=== PATIENT | male | born 1980 | race Caucasian/White ===

== ENCOUNTER → 2020-03-23 22:05 | Outpatient (CLI) | payer OTHER, SELFPAY ==
[2020-03-23 19:11] VITALS: BMI 44.9
[2020-03-23 22:12] LABS: Absolute Lymphocyte Count 2.19 X10^3/uL (0.83-4.51); Absolute Neutrophil Count 7.8 X10^3/uL (2.0-7.7); Basophil# 0.07 X10^3/uL; Basophil% 0.6 % (0-1); Eosinophil# 0.19 X10^3/uL; Eosinophils% 1.7 % (0-5); Hematocrit 30.8 % (40-54); Hemoglobin 8.5 g/dL (13.0-16.5); Lymphocyte # 2.19 X10^3/ul (4.0); Mean Corp Hgb Conc 27.6 g/dL (32-36); Mean Corpuscular Hgb 19.5 pg (27.0-32.0); Mean Corpuscular Volume 70.8 fL (80-94); Mean Platelet Vol. 9.6 fl (6.2-12.0); Monocyte# 0.71 X10^3/uL; Monocyte% 6.5 % (0-10); NRBC Flagged by Analyzer 0 % (0-5); Neutrophil # 7.75 X10^3/uL (2.7-7.7); Neutrophil % 70.8 % (47-70); Platelet Count 532 K/mm3 (150-450); RBC Distribution Width CV 17.4 % (11.6-14.6); RBC Distribution Width SD 44.2 fl (35.1-43.9); Red Blood Count 4.35 M/mm3 (4.6-6.2)
[2020-03-23 22:32] LABS: ALB/GLOB Ratio 0.9 RATIO (0.9-2.4); AST(SGOT) 9 U/L (15-37); Alanine Aminotransfer ALT/SGPT 26 U/L (16-61); Albumin, Serum 3.5 g/dL (3.2-5.0); Alkaline Phosphatase 95 U/L (45-117); Anion Gap 4 (5-15); BUN 19 mg/dL (7-18); BUN/Creat Ratio 18.8 RATIO (10-20); Calcium,Total 8.9 mg/dL (8.5-10.1); Chloride 110 mmol/L (98-107); Cholesterol 183 mg/dL (200); Creatinine, Serum 1.01 mg/dL (0.70-1.30); EST Glomerular Filtration Rate 87 mL/min (>60); Est Glom Filt Rate - Afr Amer 106 mL/min (>60); Globulin 3.7 g/dL (2.2-4.2); Glucose 88 mg/dL (74-106); High Density Lipoprotein 25 mg/dL; Potassium 4.2 mmol/L (3.5-5.1); Protein, Total 7.2 g/dL (6.4-8.2); Sodium Level 141 mmol/L (136-145); Triglycerides 215 mg/dL; Very Low Density Lipoprotein 43 mg/dL (5-40)
== END ==
PROVIDERS: Referring Provider Nurse Practitioner; Visit Provider Nurse Practitioner
DX: K59.00 Constipation, unspecified (principal); K57.92 Diverticulitis of intestine, part unspecified, without perforation or abscess without bleeding
CPT/HCPCS: 80053; 80061; 85025

== ENCOUNTER → 2020-10-25 23:00 | Outpatient (CLI) | payer OTHER, SELFPAY ==
[2020-10-25 17:42] VITALS: BMI 41.6
== END ==
PROVIDERS: Visit Provider Nurse Practitioner
DX: T81.89XA Other complications of procedures, not elsewhere classified, initial encounter (principal); T80.219A Unspecified infection due to central venous catheter, initial encounter
CPT/HCPCS: 87070; 87075; 87077; 87186; 87205

== ENCOUNTER 2021-04-16 10:29 | Day surgery (SDC) | payer OTHER, SELFPAY ==
[2021-04-16] VITALS (7 sets, daily range): BP systolic 107–129; BP diastolic 70–82; PULSE 75–85; RESP 16–18; TEMP 36.4–36.8; O2SAT 92–99; BMI 44.2
--- NOTE | 2021-04-16 11:12 | PCM.HP.BLA ---
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 Is patient in pain?: No Allergies amoxapine Allergy (Severe, Verified 04/11/21 14:17) RASH amoxicillin Allergy (Severe, Verified 04/11/21 14:17) HEAT RASH Penicillins Allergy (Verified 04/11/21 14:17) Rash Medications ondansetron HCl 8 mg PO Q8H PRN PRN 06/26/20 [History Confirmed 04/11/21] prochlorperazine maleate 10 mg PO Q8H 06/26/20 [History Confirmed 04/11/21] aspirin 81 mg tablet,delayed release 81 mg PO BID tab 09/20/20 [History Confirmed 04/11/21] mupirocin 2 % topical ointment 1 applic TOPICAL BID #15 g 09/20/20 [Rx Confirmed 04/11/21] ascorbic acid (vitamin C) 500 mg capsule mg PO DAILY cap 12/18/20 [History Confirmed 04/11/21] multivitamin 1 tab PO DAILY 12/18/20 [History Confirmed 04/11/21] omega-3 acid ethyl esters 1 gram capsule 1 cap PO DAILY 12/18/20 [History Confirmed 04/11/21] PFSH Medical History Colon cancer DVT (deep venous thrombosis) Sleep apnea Surgical wound, non healing Surgical History [place] teeth extracted Family History Father CVA (cerebral vascular accident) Other Heart disease Liver cancer Stomach cancer Social History Smoking Status: Never smoker second hand exposure: No alcohol intake: current substance use type: does not use HPI HPI HPI: JESENIA LARSEN, is a 41 M who presents to the office today for port placement. Patient has rectal cancer and requires chemotherapy. Patient reports he has had 2 ports on the right side which of both become infected and he has had a PICC line in the left which developed a DVT. ROS General General: Yes weight change, appetite and fatigue; No colon cancer, breast cancer or weakness HEENT HEENT: No difficulty swallowing, eye injury, eye surgery, swollen glands or hoarseness Endo Endocrine: No thyroid disease, diabetes mellitus, thyroid cancer, Hair loss, heat intolerance or cold intolerance Skin Skin: No rash or changing moles Breast Breast: No left breast lump, right breast lump, nipple discharge, breast pain, abnormal mammogram, abnormal US or breast enlargement Musc Musculoskeletal: No back problems, arthritis, rheumatoid arthritis, gout or joint pain Cardio Cardiovascular: No murmur, pacemaker, heart disease, atrial fibrillation, high blood pressure, heart attack, heart stent, palpitations, shortness of breat with exertion or chest pain Psych Psychiatric: No depression, anxiety or hearing voices Resp Respiratory: No shortness of breath, Yes sleep apnea, No cough, No COPD, No asthma, No emphysema and No wheezing Gastro Gastrointestinal: Yes abdominal pain, No nausea or vomiting, No diarrhea, Yes constipation, No blood in stool, No acid reflux, Yes hemorrhoids, No ulcers, No gallbladder problem and No black,tarry stools Tariq Hematologic: No blood thinners, No blood disorders, No bleeding, No anemia and No blood clots Neuro Neurologic: No system reviewed and no additional complaints, except as documented, No as per HPI, No abnormal gait, No abnormal hearing, No abnormal movements, No abnormal speech, No behavioral changes, No burning sensations, No confusion, No convulsions, No disequilibrium, No dizziness, No localized weakness, No frequent falls, No headache(s), No lack of coordination, No loss of vision, No memory loss, Yes numbness, No other visual disturbances, No radicular pain, No restless legs, No sensory deficit, No syncope, Yes tingling, No tremor(s), No weakness and No other Exam Const General: cooperative Orientation: alert and oriented x3 HENMT Head: normal to inspection Neck Neck: normal visual inspection and full ROM Chest Chest palpation & inspection: normal inspection of the chest Resp Effort & Inspection: normal respiratory effort Auscultation: clear to auscultation bilaterally Cardio Rate: regular rate Rhythm: regular rhythm GI Inspection: non-distended Palpation: soft and nontender Skin General: no rashes or lesions noted Neuro General: patient alert and patient oriented x3 Extrem General: full ROM Psych Appearance: grossly normal Mental Status: mental status grossly normal Assessment and Plan Assessment and Plan (1) Rectal cancer metastasized to lung: Status: Chronic Comment: Bilateral lung nodules not causing symptoms. CEA on 03/14/2021 was 8. (2) Encounter for insertion of venous access port: Status: Acute Plan - Dr. Simon Dela Cruz MD: The patient requires port for chemotherapy. Patient has had 2 ports on the right side and believes that dissolvable sutures cause infections. I discussed left chest port placement with the patient in detail. I discussed using permanent nylon sutures for the incision and PDS monofilament suture for the anchoring. I discussed the risks of the procedure including bleeding and infection and pneumothorax. I also discussed the possibility of having converted to a right sided chest port if I am unable to access the left. Simon Dela Cruz MD Pager: [facility] [address] [place] [address], [address] [place] [address] Office: I have re-examined the patient. There are no clinical changes since date of exam.
[2021-04-16] MEDS: Lidocaine 1% /Epi 1:100 (20ml) 20 ML Vial (12:00)
--- NOTE | 2021-04-16 12:16 | OP.PCM_ITS ---
Problems Associated Problem List Diagnoses (1) Encounter for insertion of venous access port: (2) Rectal cancer metastasized to lung: Report of Operation Date of Procedure: 04/16/21 Pre-Operative Diagnosis: Metastatic rectal cancer need for vascular access Post-Operative Diagnosis: Same Surgery/Procedure Performed:: Ultrasound and fluoroscopy guided left chest port placement utilizing left IJ Description of Procedure: After obtaining informed consent patient was brought back to the operating room MAC anesthesia was induced and the left chest and neck were prepped in normal sterile fashion. Ultrasound was used to evaluate both IJs and the left IJ was selected. Next, using a needle, the left IJ was accessed and a guidewire was passed on into the superior vena cava under fluo roscopy guidance. A small incision was made over the puncture site and the dilator introducer was placed over the guidewire. Next this was capped and the pocket was made for the port. 1% lidocaine with epinephrine was injected in the proposed port site. An incision was made with scalpel. Electrocautery was used to make a pocket under the skin and subcutaneous tissue. Hemostasis was obtained. Next, the catheter was tunneled up to the neck incision site and placed through the introducer. The peel-away introducer was removed and the position of the catheter was confirmed on fluoroscopy. Next, the catheter was trimmed and attached to the port with the locking device. Interrupted 2-0 Vicryl sutures were used to anchor the port to the chest wall and then the port was placed inside the pocket. The pocket was then flushed with saline and the port irrigated with saline. There was good blood return and the port flushed easily. Next, heparin was injected into the port. The skin was closed with subcutaneous interrupted 3-0 Vicryl sutures. A single 3-0 Vicryl sutures placed under the skin at the neck incision site. Steri-Strips were placed as well as op sites. Patient tolerated procedure well, was taken to PACU in stable condition. Chest x-ray will be obtained. Grafts/Implants Used: 8 Citizen Of [place] PowerPort Admit VTE Documentation VTE Mechan Device Prophylaxis: SCD's
--- NOTE | 2021-04-16 12:17 | RAD_ITS ---
STUDY: X-RAY CHEST REASON FOR EXAM: Male, 41 years old. Line placement -- in pacu TECHNIQUE: Single AP portable view of the chest. COMPARISON: None. FINDINGS: A left-sided portacatheter is seen with the tip at the junction of the superior vena cava and right atrium. Bilateral pulmonary nodules. The largest nodule measures 1.3 cm. This nodules in the right upper lobe. There is no demonstrated pleural abnormality. Normal size heart. Normal mediastinum and jarvis. Normal visualized pulmonary arteries. Normal visualized aortic arch and descending thoracic aorta. Normal visualized thoracic spine. Normal visualized ribs, clavicles, and shoulders. There is no demonstrated abnormality of the visualized soft tissue structures of the upper abdomen. RAD/CXR for Line Placement IMPRESSION: Bilateral pulmonary nodules. The tip of the left Port-A-Cath is at the junction of the superior vena cava and right atrium. Electronically Signed: Lm Robb MD at 13:04 EST , Service support ,
--- NOTE | 2021-04-16 12:17 | EX.PCM.DISCH ---
Discharge Instructions Procedure Port-A-Cath Diet Discharge Diet: Light diet - advance as tolerated (Pain medication may cause nausea. You should typically eat light foods as you take your pain medication.) Activity Discharge Activity: Return to Normal Activity and May Shower (with your bandage in place in 1-2 days after surgery. DO NOT SHOWER WHEN YOUR PORT IS ACCESSED.) Dressing / Incision Call your doctor if your incision/area has: Continuous Slow Oozing, Sudden Increased Bleeding, Increased Pain/ Swelling, Increased Redness and Foul Smelling Discharge Call your doctor if you observe: Fever of 101 or Higher Remove Dressing in: 3 days Cleanse incision/area with: Soap & Water Follow Up Care Please Follow Up With: Simon Dela Cruz MD When: Call to make 7-10 day appt for suture removal [phone] Test Results: Test results from this visit will be discussed in further detail at your follow-up appointment, if applicable. Discharge Plan Admission Attending Provider: Simon Dela Cruz Primary Care Provider: Breana Arroyo Discharge Orders/Prescriptions Prescriptions: No Action ascorbic acid (vitamin C) 500 mg capsule 500 mg PO DAILY RF: 0 multivitamin Tablet 1 tab PO DAILY RF: 0 omega-3 acid ethyl esters 1 gram capsule 1 cap PO DAILY RF: 0 aspirin 81 mg tablet,delayed release (DR/EC) 81 mg PO BID RF: 0 mupirocin 2 % ointment 1 applic topical BID PRN PRN (Reason: infection) RF: 0 Referrals / Follow Up: Breana Arroyo [Primary Care Provider] - Disposition Disposition (needs filled in before D/C Order can be placed): Home, Self Care
[2021-04-16] MEDS: Lactated Ringers 1,000 ML 15 ML IV (12:46)
== END 2021-04-16 14:20 | disposition home or self-care (01) ==
LOC: SDC 10:36 → AC 10:37
PROVIDERS: Referring Provider Surgery; Visit Provider Surgery
PROC: (CPT 36561; principal; 2021-04-16 11:55)
DX: Z45.2 Encounter for adjustment and management of vascular access device (principal); C20 Malignant neoplasm of rectum; C78.00 Secondary malignant neoplasm of unspecified lung; Z79.82 Long term (current) use of aspirin; Z79.899 Other long term (current) drug therapy
CPT/HCPCS: 00532; 36561; 71045; 77001; J7120; C1788

== ENCOUNTER → 2021-09-14 | Outpatient (CLI) | payer OTHER, SELFPAY ==
--- NOTE | 2021-09-14 13:52 | CT_ITS ---
STUDY: CT CHEST, ABDOMEN T PELVIS WITH CONTRAST REASON FOR EXAM: Male, 41 years old. STAGING for colon cancer. RADIATION DOSAGE (If Supplied By Facility): CTDIvol = ( 25.78 ) mGy, DLP = ( 4083.24 ) mGycm TECHNIQUE: Transaxial imaging was performed following intravenous administration of Oral and amp; IV Readi-CAT and amp; 100mL Isovue-300. Individualized dose optimization techniques were used for this CT. COMPARISON: No relevant priors. FINDINGS: CHEST There are multiple bilateral pulmonary nodules involving both lungs in the upper and lower lobes. The largest nodule is in the superior segment of the right lower lobe and measures 1.8 cm x 1.6 cm. There is no demonstrated pleural abnormality. Minimal thickening of the anterior pericardium. There are multiple small lymph nodes within the mediastinum, which are normal in size and morphology most compatible with reactive lymph hyperplasia. Normal hilar regions. Normal unenhanced pulmonary arteries. Normal aorta arch and descending thoracic aorta. There are degenerative changes of the thoracic spine. Hypodense nodules are seen in the liver. ABDOMEN Scattered hypoechoic solid nodules in both lobes of the liver. The largest heterogeneous appearing nodule is in the inferior aspect of the right lobe of the liver and measures 5.27 x 5.2 cm. This is in keeping with metastatic disease. Normal gallbladder and extrahepatic biliary system. Normal spleen. Normal pancreas. Normal bilateral adrenal glands. Normal right kidney. Left parapelvic renal cysts. Normal visualized stomach. Normal small intestine. There is diffuse circumferential thickening of the rectum with narrowing of the lumen. Increased markings are seen in the surrounding perirectal fat. The appendix is visualized and appears normal. Normal abdominal aorta. Normal inferior vena cava. Normal retroperitoneum. Normal abdominal wall. There are mild degenerative changes of the visualized lumbar spine. PELVIS Normal urinary bladder. CT/CT Chest, Abd, Pel w/Contrast IMPRESSION: Multiple pulmonary nodules as described. Findings suggestive of a hepatic metastasis. Diffuse circumferential wall thickening of the rectum with narrowing of the lumen and increased markings in the surrounding peritoneal fat. Left parapelvic renal cysts. Electronically Signed: Lm Robb MD at 15:03 EDT ,
== END | disposition home or self-care (01) ==
PROVIDERS: Visit Provider Internal Medicine Medical Oncology
DX: C20 Malignant neoplasm of rectum (principal); C78.00 Secondary malignant neoplasm of unspecified lung; C78.7 Secondary malignant neoplasm of liver and intrahepatic bile duct
CPT/HCPCS: 71260; 74177; Q9967; A4216

== ENCOUNTER → 2021-09-18 | Outpatient (CLI) | payer OTHER, SELFPAY ==
[2021-09-18 16:40] LABS: Absolute Lymphocyte Count 0.69 X10^3/uL (0.83-4.51); Absolute Neutrophil Count 6.2 X10^3/uL (2.0-7.7); Basophil# 0.04 X10^3/uL; Basophil% 0.5 % (0-1); Eosinophil# 0.13 X10^3/uL; Eosinophils% 1.7 % (0-5); Hemoglobin 10.1 g/dL (13.0-16.5); Lymphocyte # 0.69 X10^3/ul (0.83-4.51); Lymphocyte % 9.2 % (19-41); Mean Corp Hgb Conc 30.6 g/dL (32-36); Mean Corpuscular Hgb 26.2 pg (27.0-32.0); Mean Corpuscular Volume 85.5 fL (80-94); Monocyte# 0.45 X10^3/uL; NRBC Flagged by Analyzer 0 % (0-5); Neutrophil # 6.16 X10^3/uL (2.7-7.7); Neutrophil % 82.3 % (47-70); Platelet Count 339 K/mm3 (150-450); RBC Distribution Width CV 15.1 % (11.6-14.6); RBC Distribution Width SD 47.2 fl (35.1-43.9); Red Blood Count 3.86 M/mm3 (4.6-6.2); White Blood Count 7.5 K/mm3 (4.4-11.0)
[2021-09-18 17:36] LABS: ALB/GLOB Ratio 1.1 RATIO (0.9-2.4); AST(SGOT) 16 U/L (15-37); Alanine Aminotransfer ALT/SGPT 28 U/L (16-61); Albumin, Serum 3.4 g/dL (3.2-5.0); Alkaline Phosphatase 79 U/L (45-117); Anion Gap 7 (5-15); BUN 18 mg/dL (7-18); BUN/Creat Ratio 17.3 RATIO (10-20); Calcium,Total 9.1 mg/dL (8.5-10.1); Chloride 108 mmol/L (98-107); Creatinine, Serum 1.04 mg/dL (0.70-1.30); EST Glomerular Filtration Rate 84 mL/min (>60); Est Glom Filt Rate - Afr Amer 101 mL/min (>60); Globulin 3.2 g/dL (2.2-4.2); Glucose 129 mg/dL (74-106); LDH 208 U/L (87-241); Potassium 3.9 mmol/L (3.5-5.1); Protein, Total 6.6 g/dL (6.4-8.2); Sodium Level 142 mmol/L (136-145)
[2021-09-19 00:23] LABS: Xtra Tube EP Lab EXTRA TUBE
[2021-09-20 10:37] LABS: Carcinoembryonic Antigen 86.4 ng/mL (0.0-4.7)
== END | disposition home or self-care (01) ==
PROVIDERS: Referring Provider Internal Medicine Medical Oncology; Visit Provider Internal Medicine Medical Oncology
DX: C20 Malignant neoplasm of rectum (principal); C78.7 Secondary malignant neoplasm of liver and intrahepatic bile duct
CPT/HCPCS: 36415; 80053; 82378; 83615; 85025

== ENCOUNTER → 2021-11-02 | Outpatient (CLI) | payer OTHER, SELFPAY ==
[2021-11-02 23:14] LABS: Thyroid Stim Hormone (TSH) 3.99 uIU/mL (0.358-3.74)
[2021-11-02 23:16] LABS: Absolute Lymphocyte Count 0.82 X10^3/uL (0.83-4.51); Absolute Neutrophil Count 6.9 X10^3/uL (2.0-7.7); Basophil# 0.05 X10^3/uL; Basophil% 0.6 % (0-1); Eosinophil# 0.06 X10^3/uL; Eosinophils% 0.7 % (0-5); Hematocrit 34.9 % (40-54); Hemoglobin 10.5 g/dL (13.0-16.5); Lymphocyte # 0.82 X10^3/ul (0.83-4.51); Lymphocyte % 9.5 % (19-41); Mean Corp Hgb Conc 30.1 g/dL (32-36); Mean Corpuscular Hgb 23.3 pg (27.0-32.0); Mean Corpuscular Volume 77.4 fL (80-94); Mean Platelet Vol. 9.4 fl (6.2-12.0); Monocyte# 0.72 X10^3/uL; Monocyte% 8.4 % (0-10); NRBC Flagged by Analyzer 0 % (0-5); Neutrophil # 6.94 X10^3/uL (2.7-7.7); Neutrophil % 80.5 % (47-70); Platelet Count 589 K/mm3 (150-450); RBC Distribution Width CV 15.9 % (11.6-14.6); RBC Distribution Width SD 44.1 fl (35.1-43.9); Red Blood Count 4.51 M/mm3 (4.6-6.2); White Blood Count 8.6 K/mm3 (4.4-11.0)
[2021-11-02 23:35] LABS: D-Dimer Quantitative (DVT/PE) 11.58 FEU/ug/m (0.27-0.49)
== END | disposition home or self-care (01) ==
PROVIDERS: Visit Provider Nurse Practitioner
DX: R05.9 Cough, unspecified (principal); A09 Infectious gastroenteritis and colitis, unspecified
CPT/HCPCS: 84443; 85025; 85379

== ENCOUNTER 2021-11-11 20:28 | Inpatient (IN) | payer OTHER, SELFPAY ==
[2021-11-11 20:29] VITALS: BP 157/99; PULSE 116; RESP 16; TEMP 35.9; O2SAT 95; BMI 43.5
--- NOTE | 2021-11-11 21:06 | EKG12_ITS ---
Test Reason : COUGH Blood Pressure : / mmHG Vent. Rate : 107 BPM Atrial Rate : 107 BPM P-R Int : 136 ms QRS Dur : 092 ms QT Int : 338 ms P-R-T Axes : 044 007 013 degrees QTc Int : 451 ms Sinus tachycardia Otherwise normal ECG Confirmed by ANGI LARA, AMOL ([id number]), telegraph editor NAYANA VILLALPANDO ([id number]) on 11/13/2021 9:51:27 AM Referred By: OZ Confirmed By:AMOL WHITLEY MD
--- NOTE | 2021-11-11 21:10 | EX.ED.DYSGE1 ---
HPI History of Present Illness Chief Complaint: Cough Informant: patient and spouse/S.O. Narrative Narrative: Patient presents with cough for the past 2 weeks as well as abdominal pain and distention for the past 3 days. Patient had seen his primary care physician and lab work was recently performed. His thyroid was found to be low and he was started on levothyroxine. His doctor felt this might be why he was experiencing the cough. He does report having nausea and vomiting when he takes the levothyroxine. He also notes increased abdominal distention with upper abdominal pain over the past 3 days. He has a history of rectal/colon cancer with mets to the liver. He is scheduled to undergo a liver biopsy this coming week. He denies fever or chills. [facility] Medical History Colon cancer Diarrhea due to drug DVT (deep venous thrombosis) Encounter for education Liver cancer Neuropathy Non-smoker Sleep apnea Surgical wound, non healing Wears glasses Home Medications aspirin 81 mg tablet,delayed release 81 mg PO BID 09/20/20 [History Last Taken Unknown] ascorbic acid (vitamin C) 500 mg capsule 500 mg PO DAILY 12/18/20 [History Last Taken Unknown] multivitamin 1 tab PO DAILY 12/18/20 [History Last Taken Unknown] omega-3 acid ethyl esters 1 gram capsule 1 cap PO DAILY 12/18/20 [History Last Taken Unknown] mupirocin 2 % topical ointment 1 applic topical BID PRN PRN infection 04/12/21 [History Last Taken Unknown] cefdinir 300 mg capsule 300 mg PO BID #20 caps 11/02/21 [Rx Last Taken Unknown] metronidazole 250 mg tablet 250 mg PO TID 10 days #30 tabs 11/02/21 [Rx Last Taken Unknown] prednisone 20 mg tablet 40 mg PO DAILY #20 tabs 11/02/21 [Rx Last Taken Unknown] levothyroxine 50 mcg tablet 50 mcg PO DAILY #30 tabs 11/06/21 [Rx Last Taken Unknown] Allergy/AdvReac Type Severity Reaction Status Date / Time amoxapine Allergy Severe RASH Verified 11/11/21 20:29 amoxicillin Allergy Severe HEAT RASH Verified 11/11/21 20:29 Penicillins Allergy Rash Verified 11/11/21 20:29 Family History Father CVA (cerebral vascular accident) Other Heart disease Liver cancer Stomach cancer Surgical History History of vascular access device [place] teeth extracted Social History Smoking Status: Never smoker second hand exposure: No alcohol intake: current substance use type: does not use ROS ROS ED Constitutional Constitutional ED: Denies chills or fever(s) Eyes Eyes: Denies change in vision or discharge from eye(s) ENT ENT ED: Denies discharge from eye(s), rhinorrhea or sore throat Cardiovascular Cardiovascular: Denies chest pain or palpitations Respiratory/Chest Respiratory/Chest: Reports cough and dyspnea Gastrointestinal Gastrointestinal: Reports abdominal pain; Denies diarrhea, nausea or vomiting Genitourinary Genitourinary ED: Denies difficulty urinating or dysuria Musculoskeletal Musculoskeletal: Reports back pain; Denies extremity pain Integumentary Denies Abrasions or rash Neurologic Neurologic: Denies headache(s) or weakness Psychiatric Psychiatric: Denies anxiety or depression Allergic/Immunologic Allergic/Immunologic ED: Denies lip swelling or urticaria EXAM Physical Exam Const Vital Signs: 11/11/21 20:29 11/11/21 21:52 11/11/21 23:00 Temperature 96.6 F L Temperature Source Temporal Pulse Rate 116 H 99 100 Respiratory Rate 16 25 H 18 Blood Pressure 157/99 H 134/98 H 154/97 H Blood Pressure Mean 118 110 116 Pulse Ox 95 95 96 Oxygen Delivery Method Room Air Room Air Positive well nourished and well developed General Appearance ED: well developed HEENT Reports normocephalic and head/scalp atraumatic Eyes PERRL and EOMs intact bilaterally Neck supple Chest Wall inspection of chest normal and palpation of chest normal Resp normal respiratory effort and clear to auscultation bilaterally Cardio regular rhythm Rate: tachycardic GI GI Narrative: Abdomen distended and tense. Mild upper abdominal tenderness. No guarding or rebound. Extremity normal to inspection Neuro oriented x3 and no sensory deficits noted Sensorium / Orientation: alert Motor Exam: strength 5/5 throughout Psych mental status grossly normal Skin no rashes or lesions noted MDM MDM MDM Narrative Medical decision making narrative: EKG, lab work obtained. CTA of the chest ordered in addition to CT of the abdomen and pelvis. Patient was given Toradol for pain as he does have known metastatic disease to the liver. Lab Data Attestation: I reviewed the patient's lab results. Labs: Laboratory Results - last 24 hr 11/11/21 11/11/21 11/11/21 21:00 21:00 21:00 WBC 10.8 RBC 4.87 Hgb 11.2 L Hct 37.3 L MCV 76.6 L MCH 23.0 L MCHC 30.0 L RDW Std Deviation 45.0 H RDW Coeff of Walter 16.5 H Plt Count 682 H MPV 9.2 Immature Gran % (Auto) 0.600 Neut % (Auto) 80.9 H Lymph % (Auto) 8.3 L [place] % (Auto) 9.0 Eos % (Auto) 0.8 Baso % (Auto) 0.4 Absolute Neuts (auto) 8.7 H Absolute Lymphs (auto) 0.90 Nucleated RBC % 0 PT 14.8 INR 1.2 APTT 28.2 Sodium 138 Potassium 3.8 Chloride 105 Carbon Dioxide 23.0 Anion Gap 10 BUN 16 Creatinine 1.11 Estim Creat Clear Calc 97.10 Est GFR (MDRD) Af Amer 94 Est GFR (MDRD) Non-Af 78 BUN/Creatinine Ratio 14.4 Glucose 119 H Calcium 9.0 Total Bilirubin 0.40 Direct Bilirubin 0.15 AST 38 H ALT 39 Alkaline Phosphatase 158 H Total Protein 6.6 Albumin 2.5 L Globulin 4.1 Lipase 72 L Radiography Diagnostic Testing: Clinical Impression(s) from Imaging Studies Abdomen/Pelvis CT 11/11/21 22:45 IMPRESSION: Findings consistent with metastatic disease with multiple hepatic masses, lung nodules and peritoneal carcinomatosis with omental caking, significantly progressed compared to the prior study. Large amount of ascites. No bowel obstruction. Mild rectal wall thickening is relatively decreased compared to prior study. CT chest reported separately. Electronically Signed: Silvia Taveras MD at 23:28 EDT , Chest CTA 11/11/21 22:45 IMPRESSION: No definite evidence of pulmonary emboli. Small questionable filling defect in the left lower lobe is most likely artifactual. Multiple pulmonary masses increased size compared to prior study consistent with metastatic disease. Small bilateral pleural effusions, new. Intra-abdominal findings, please see report of CT abdomen pelvis for complete details Electronically Signed: Silvia Taveras MD at 23:46 EDT , EKG Initial EKG: Attestation: I personally reviewed and interpreted this EKG as follows: Interpretation: Sinus Tachycardia (Sinus tach at 107 with no acute ischemia.) Treatment and Re-Evaluation Narrative: On repeat evaluation patient resting comfortably. O2 sats are stable on room air at rest. CBC reveals mild anemia with a hemoglobin 11.2. Coags unremarkable. Chemistry studies normal with LFTs significant for an alk phos of 158 and an AST of 38. Lipase is normal. CTA of the chest reveals no definite evidence of a PE. There is a small questionable filling defect in the left lower lobe that they believe is likely artifactual. He does have multiple pulmonary masses that are increased in size when compared to prior study. He has now developed small bilateral pleural effusions. CT scan of the abdomen and pelvis reveals metastatic disease with multiple hepatic masses and evidence of peritoneal carcinomatosis with omental caking that has worsened since prior study. He does have a large amount of ascites. Test results discussed with patient and family at bedside. I did advise him that his scans appear to have worsened since prior study in September. While lying at rest patient is comfortable, however he states with any exertion he gets extremely dyspneic. In light of this I will speak with hospitalist regarding admission. I believe he will likely need a paracentesis. He does understand that with the holiday tomorrow this would not be performed until Friday. Discharge Plan Dx/Rx/DC Orders Clinical Impression: Rectal cancer metastasized to liver, Ascites, Pleural effusion Disposition Disposition: Acute Care [facility]
[2021-11-11] MEDS: Ketorolac 30 MG/ML Syringe IV (21:18)
[2021-11-11 21:28] LABS: Absolute Neutrophil Count 8.7 X10^3/uL (2.0-7.7); Basophil# 0.04 X10^3/uL; Basophil% 0.4 % (0-1); Eosinophil# 0.09 X10^3/uL; Eosinophils% 0.8 % (0-5); Hematocrit 37.3 % (40-54); Hemoglobin 11.2 g/dL (13.0-16.5); Lymphocyte % 8.3 % (19-41); Mean Corpuscular Volume 76.6 fL (80-94); Mean Platelet Vol. 9.2 fl (6.2-12.0); Monocyte# 0.97 X10^3/uL; NRBC Flagged by Analyzer 0 % (0-5); Neutrophil # 8.73 X10^3/uL (2.7-7.7); Neutrophil % 80.9 % (47-70); Platelet Count 682 K/mm3 (150-450); RBC Distribution Width CV 16.5 % (11.6-14.6); Red Blood Count 4.87 M/mm3 (4.6-6.2); White Blood Count 10.8 K/mm3 (4.4-11.0)
[2021-11-11 21:39] LABS: International Normalized Ratio 1.2; Partial Thromboplast Time 28.2 Seconds (24.1-36.2); Prothrombin Time (Protime)PT. 14.8 SECONDS (11.7-14.9)
[2021-11-11 21:48] LABS: AST(SGOT) 38 U/L (15-37); Alanine Aminotransfer ALT/SGPT 39 U/L (16-61); Albumin, Serum 2.5 g/dL (3.2-5.0); Alkaline Phosphatase 158 U/L (45-117); Anion Gap 10 (5-15); BUN 16 mg/dL (7-18); BUN/Creat Ratio 14.4 RATIO (10-20); Bilirubin, Direct 0.15 mg/dL (0.00-0.30); Chloride 105 mmol/L (98-107); Creatinine, Serum 1.11 mg/dL (0.70-1.30); EST Glomerular Filtration Rate 78 mL/min (>60); Est Glom Filt Rate - Afr Amer 94 mL/min (>60); Globulin 4.1 g/dL (2.2-4.2); Glucose 119 mg/dL (74-106); Lipase 72 U/L (73-393); Potassium 3.8 mmol/L (3.5-5.1); Protein, Total 6.6 g/dL (6.4-8.2); Sodium Level 138 mmol/L (136-145)
[2021-11-11 21:52] VITALS: BP 134/98; PULSE 99; RESP 25; O2SAT 95
--- NOTE | 2021-11-11 22:45 | CT_ITS ---
STUDY: CT ABDOMEN AND PELVIS WITH CONTRAST REASON FOR EXAM: Male, 41 years old. abd pain -- IV PO Contrast RADIATION DOSAGE (If Supplied By Facility): CTDIvol = ( 13.78 ) mGy, DLP = ( 1594.18 ) mGycm TECHNIQUE: Transaxial images were obtained from the dome of the diaphragm to the symphysis pubis with oral contrast. IV 100mL Isovue-370 was administered. Sagittal and coronal images were reconstructed. Individualized dose optimization techniques were used for this CT. COMPARISON: CT abdomen pelvis 09/14/2021. FINDINGS: LOWER CHEST: Multiple pulmonary nodules. Small left pleural effusion. CT chest reported separately. LIVER: Multiple low-attenuation masses in the liver increased size compared to prior. Largest mass in the right lobe inferiorly measures approximately 8.6 x 7.1 cm, previously measured 5 x 4.8 cm. GALLBLADDER/BILE DUCTS: Unremarkable. PANCREAS: Unremarkable. SPLEEN: Unremarkable. ADRENAL GLANDS: Unremarkable. KIDNEYS / URETERS: Unremarkable. Parapelvic cyst left kidney. BOWEL / MESENTERY: Bulky extensive nodular soft tissue mass anteriorly consistent with omental caking which is significantly increased compared to prior study. Mild wall thickening of the rectum is similar but less pronounced compared to prior study. No bowel obstruction. APPENDIX: Identified and normal. No evidence of acute appendicitis. PERITONEUM: No free air. Large amount of free fluid throughout the abdomen and pelvis is new. VESSELS: Abdominal aorta is normal caliber. RETROPERITONEUM: Unremarkable. REPRODUCTIVE ORGANS: Unremarkable. BLADDER: Unremarkable. ABDOMINAL WALL: Unremarkable. BONES: No acute abnormality. OTHER: None. CT/Abdomen/Pelvis WITH Contrast IMPRESSION: Findings consistent with metastatic disease with multiple hepatic masses, lung nodules and peritoneal carcinomatosis with omental caking, significantly progressed compared to the prior study. Large amount of ascites. No bowel obstruction. Mild rectal wall thickening is relatively decreased compared to prior study. CT chest reported separately. Electronically Signed: Silvia Taveras MD at 23:28 EDT ,
--- NOTE | 2021-11-11 22:45 | CT_ITS ---
STUDY: CTA CHEST REASON FOR EXAM: Male, 41 years old. sob -- sob, cough, cancer pt, H/O DVTs RADIATION DOSAGE (If Supplied By Facility): CTDIvol = ( 11.84 ) mGy, DLP = ( 488.00 ) mGycm TECHNIQUE: The examination was performed with the intravenous administration of IV 100mL Isovue-370. Post-processing of the angiographic images was performed, with multiplanar reformation and 3D reconstruction. Individualized dose optimization techniques were used for this CT. COMPARISON: CT chest 09/14/2021. Limitations: Suboptimal opacification of the pulmonary arteries. 2 series were obtained. Respiratory motion. FINDINGS: LUNGS: There are innumerable pulmonary masses throughout the lungs. Largest in the right lower lobe is 2.3 x 2.2 cm. Increased size compared to prior study. No consolidation. Dependent atelectasis in the lower lobes. PLEURA: Small left pleural effusion. Minimal right pleural effusion. No pneumothorax. PULMONARY VESSELS: Questionable filling defect in left lower lobe most likely is artifactual. No other definite filling defects identified to suggest pulmonary emboli. MEDIASTINUM: Mildly enlarged mediastinal and hilar lymph nodes.. HEART: Not enlarged. AORTA/GREAT VESSELS: Thoracic aorta is normal caliber. No aneurysm or dissection. UPPER ABDOMEN: Liver masses, omental caking, ascites. BONES/SOFT TISSUES: No acute findings. OTHER: None. CT/CTA Chest W/WO Contrast IMPRESSION: No definite evidence of pulmonary emboli. Small questionable filling defect in the left lower lobe is most likely artifactual. Multiple pulmonary masses increased size compared to prior study consistent with metastatic disease. Small bilateral pleural effusions, new. Intra-abdominal findings, please see report of CT abdomen pelvis for complete details Electronically Signed: Silvia Taveras MD at 23:46 EDT ,
[2021-11-11 23:00] VITALS: BP 154/97; PULSE 100; RESP 18; O2SAT 96
--- NOTE | 2021-11-11 23:54 | PCM.HP.STD ---
HPI - General General Date of Admission: 11/11/21 Date of Service: 11/11/21 Chief Complaint: Cough, abdominal pain, back pain. HPI Narrative The patient is a 41 y/o M w/ PMHx: Morbid Obesity, Hx DVT, LAWANDA on CPAP q HS, Metastatic Rectal CA to liver, lung following w/ Dr. Quintero, Hypothyroidism who presents to the [facility] ED on 11/11/21 with history of persistent and mildly increased nonproductive cough over the last 2 weeks as well as abdominal distention and discomfort described as a dull aching and cramping 8 out of 10 in severity at its worst, 3 out of 10 at its least, worse with any ambulatory attempts with associated exertional dyspnea over the last 3 days with no recent fevers or chills. He does state that he has upcoming liver biopsy this week. Patient with recent oncology visit 10/25/2021. Work-up in the ED included T96.6, heart rate 116, BP 157/99, respiratory rate 16, 95% on room air, CBC with WC 10.8, hemoglobin 0.2 with MCV 76.6, platelets 682 with mild left shift, unremarkable coags, CMP not marked appearing aside glucose 119, AST 38, alk phos 158, lipase 72, CTA chest with no definitive evidence of PE, small questionable filling defect left lower lobe likely artifactual, multiple pulmonary masses increased in size compared to recent prior study consistent with metastatic disease, small bilateral pleural effusions new from prior, CT abdomen and pelvis with findings consistent with metastatic disease with multiple hepatic masses, lung nodules and peritoneal carcinomatosis with omental caking significantly progressed since prior study, large amount of ascites, no evidence of any bowel obstruction, mild rectal wall thickening is actually relatively decreased compared to prior study. In the ED patient administered Toradol 30 mg IV x1. [facility] Medical History Colon cancer Diarrhea due to drug DVT (deep venous thrombosis) Encounter for education Liver cancer Neuropathy Non-smoker Sleep apnea Surgical wound, non healing Wears glasses Home Medications aspirin 81 mg tablet,delayed release 81 mg PO BID HEART HEALTH 09/20/20 [History Last Taken 11/11/21] ascorbic acid (vitamin C) 500 mg capsule 500 mg PO DAILY SUPPLEMENT 12/18/20 [History Last Taken 11/05/21] multivitamin 1 tab PO DAILY SUPPLEMENT 12/18/20 [History Last Taken 11/11/21] omega-3 acid ethyl esters 1 gram capsule 1 cap PO DAILY SUPPLEMENT 12/18/20 [History Last Taken 11/05/21] levothyroxine 50 mcg tablet 50 mcg PO DAILY THYROID 11/12/21 [History Last Taken 11/05/21] Allergy/AdvReac Type Severity Reaction Status Date / Time amoxapine Allergy Severe RASH Verified 11/11/21 20:29 amoxicillin Allergy Severe HEAT RASH Verified 11/11/21 20:29 Penicillins Allergy Rash Verified 11/11/21 20:29 Family History Father CVA (cerebral vascular accident) Other Heart disease Liver cancer Stomach cancer other (No marked maternal family history including HD, DM, CA.) Surgical History History of vascular access device Simms teeth extracted Social History (Updated 11/12/21 @ 01:[address] Andreea Truong MD) household members: none Smoking Status: Never smoker second hand exposure: No alcohol intake: current substance use type: does not use ROS ROS Narrative Admission Review of Systems: CONSTITUTIONAL: No weight loss, fever, chills, + weakness or fatigue. HEENT: Eyes: No visual loss, blurred vision, double vision or yellow sclerae. Ears, Nose, Throat: No hearing loss, sneezing, congestion, runny nose or sore throat. SKIN: No rash or itching, lesions, wounds. CARDIOVASCULAR: No chest pain, chest pressure or chest discomfort, palpitations, edema, orthopnea, syncopal events. RESPIRATORY: + shortness of breath, cough without marked sputum, No wheezing, hemoptysis. GASTROINTESTINAL: + anorexia, abdominal distention, abdominal pain, nausea without vomiting, constipation, No diarrhea, melena, BRBPR. GENITOURINARY: No dysuria, frequency, urgency or retention. NEUROLOGICAL: No headache, dizziness, syncope, paralysis, ataxia, numbness or tingling in the extremities, focal weakness, change in bowel or bladder control, seizure. MUSCULOSKELETAL: + muscle, back pain, joint pain or stiffness. HEMATOLOGIC: + anemia, bleeding or bruising. LYMPHATICS: No enlarged nodes. No history of splenectomy. PSYCHIATRIC: No history of depression or anxiety. ENDOCRINOLOGIC: + reports of sweating, cold or heat intolerance. No polyuria or polydipsia. ALLERGIES: No history of asthma, hives, eczema or rhinitis. Vital Signs Vital Signs Vital Signs: 11/11/21 20:29 11/11/21 21:52 11/11/21 23:00 Temperature 96.6 F L Temperature Source Temporal Pulse Rate 116 H 99 100 Respiratory Rate 16 25 H 18 Blood Pressure 157/99 H 134/98 H 154/97 H Blood Pressure Mean 118 110 116 Pulse Ox 95 95 96 Oxygen Delivery Method Room Air Room Air Weight Weight: 321 lb 3.416 oz Body Mass Index (BMI) 43.5 Physical Exam Narrative Physical Examination: General: Awake, alert, oriented x 3 and cooperative, seated upright in the ED bed, uncomfortable appearing. Skin: Normal color, normal turgor, no icterus, no cyanosis. HEENT: AT/NC, EOMI, PERRLA, MMM, no carotid bruits or JVD noted; however, thickened neck makes evaluation difficult. Lungs: Diminished, greater bases, distant breath sounds, no evidence of any distress no rales, ronchi or wheezing. Heart: Regular rate and rhythm; no gallop, rub audible. Abdomen: Soft, generalized tenderness to palpation, significantly distended and tense, very distant bowel sounds, unable to determine HSM secondary to significance of distention. Extremities: No cyanosis, clubbing, or edema. Neurological: Patient awake, alert, oriented as noted, cognitive function intact; pupils equally reactive to light and accommodation, cranial nerves II-XII grossly normal, moving all 4 extremities, no focal deficits, strength moderately global decrease secondary to acute presentation Psychiatric: Affect appears uncomfortable, no acute evidence of depressive or anxiety feelings. Results Lab / Micro Data Result Diagrams: 11/11/21 21:00 11/11/21 21:00 Labs: Laboratory Results - last 24 hr 11/11/21 21:00: WBC 10.8, RBC 4.87, Hgb 11.2 L, Hct 37.3 L, MCV 76.6 L, MCH 23.0 L, MCHC 30.0 L, RDW Std Deviation 45.0 H, RDW Coeff of Walter 16.5 H, Plt Count 682 H, MPV 9.2, Immature Gran % (Auto) 0.600, Neut % (Auto) 80.9 H, Lymph % (Auto) 8.3 L, [place] % (Auto) 9.0, Eos % (Auto) 0.8, Baso % (Auto) 0.4, Absolute Neuts (auto) 8.7 H, Absolute Lymphs (auto) 0.90, Nucleated RBC % 0 11/11/21 21:00: PT 14.8, INR 1.2, APTT 28.2 11/11/21 21:00: Sodium 138, Potassium 3.8, Chloride 105, Carbon Dioxide 23.0, Anion Gap 10, BUN 16, Creatinine 1.11, Estim Creat Clear Calc 97.10, Est GFR (MDRD) Af Amer 94, Est GFR (MDRD) Non-Af 78, BUN/Creatinine Ratio 14.4, Glucose 119 H, Calcium 9.0, Total Bilirubin 0.40, Direct Bilirubin 0.15, AST 38 H, ALT 39, Alkaline Phosphatase 158 H, Total Protein 6.6, Albumin 2.5 L, Globulin 4.1, Lipase 72 L Micro: Microbiology 11/11/21 21:20 Nasal Secretion SARS-CoV-2 & FLU Antigen (Rapid) - Final Radiology Impression Abdomen/Pelvis CT 11/11/21 22:45 IMPRESSION: Findings consistent with metastatic disease with multiple hepatic masses, lung nodules and peritoneal carcinomatosis with omental caking, significantly progressed compared to the prior study. Large amount of ascites. No bowel obstruction. Mild rectal wall thickening is relatively decreased compared to prior study. CT chest reported separately. Electronically Signed: Silvia Taveras MD at 23:28 EDT , Chest CTA 11/11/21 22:45 IMPRESSION: No definite evidence of pulmonary emboli. Small questionable filling defect in the left lower lobe is most likely artifactual. Multiple pulmonary masses increased size compared to prior study consistent with metastatic disease. Small bilateral pleural effusions, new. Intra-abdominal findings, please see report of CT abdomen pelvis for complete details Electronically Signed: Silvia Taveras MD at 23:46 EDT Reading Location ID and State: [facility] / [place] Tel , Service support , Assessment & Plan Assessment/Plan (1) Ascites: PLAN: Plan The patient is a 41 y/o M w/ PMHx: Morbid Obesity, Hx DVT, LAWANDA on CPAP q HS, Metastatic Rectal CA to liver, lung following w/ Dr. Quintero, Hypothyroidism who presents to the [facility] ED on 11/11/21 with history of persistent and mildly increased nonproductive cough over the last 2 weeks as well as abdominal distention and discomfort described as a dull aching and cramping 8 out of 10 in severity at its worst, 3 out of 10 at its least, worse with any ambulatory attempts with associated exertional dyspnea over the last 3 days with no recent fevers or chills. #1. Metastatic rectal cancer with metastases to the liver and the lung with no evidence of peritoneal carcinomatosis with omental caking with suspected metastatic ascites development with associated dyspnea, abdominal distention and pain: Patient per review of oncology records with metastatic disease with K-carlos eduardo mutation, status postchemotherapy and radiation therapy, started on FOLFIRI + Cyramza C1 on 05/01/2021 with completion of C3 on 05/29/2021, CT follow-up 09/14/2021 demonstrated progressive disease, upcoming as noted CT-guided biopsy of the liver for PD-L1/PD-1 status, current pending preauthorization for initiation of Stivarga. Will admit to medical surgical floor, consult radiology for diagnostic and therapeutic paracentesis including SAAG gradient (albumin), cell count and differential, total protein concentration, culture, glucose LDH, gram stain, amyulase, cytology. NPO after midnight, coags already obtained for paracentesis in AM. Suspect likely will be metastatic. Will request patient's oncology team to be involved per patient and family request. Mag, Phos pending. #2. Morbid Obesity: Weight loss and lifestyle changes encouraged. #3. Hypothyroidism: We will continue patient home levothyroxine regimen. #4. History DVT: Patient with significantly elevated risk given presentation, holding chemoprophylaxis for planned paracentesis is noted. #5. LAWANDA: CPAP nightly. #6. DVT prophylaxis: SCDs, defer chemoprophylaxis for planned paracentesis as noted. #7. CODE status: Patient does not have healthcare power of strategic sourcing specialist nor living will set up. Patient's mother is present and discussed at length and encourage them to set these up especially given his current status with metastatic cancer. Discussed CODE status at length including difference between FULL code, DNR-CCA and DNR-CC status. Following discussions about the differences in these status, requested Full Code status. Advanced Care Planning Face to Face Time: 16 minutes. Charges/Coding Visit Charges OBSV E&M: 51570 Initial observation care L3 Procedures Hospitalists Procedures: 31221 Advncd Care Plan 30 Min
[2021-11-12] VITALS (7 sets, daily range): BP systolic 118–156; BP diastolic 11–99; PULSE 89–99; RESP 16–26; TEMP 36.5–37.4; O2SAT 94–98; BMI 43.6
[2021-11-12] MEDS: Morphine 4 MG/ML Syringe IV (01:58)
[2021-11-12 02:02] LABS: Albumin, Serum 2.6 g/dL (3.2-5.0); Magnesium 2.4 mg/dL (1.6-2.6); Phosphorus 4.2 mg/dL (2.5-4.9)
--- NOTE | 2021-11-12 02:04 | NURSING ---
pt 7/10 pain awaiting admission to floor. 4mg morphine given IV over 4 minutes. pt tolerated well.
[2021-11-12 06:57] LABS: Absolute Lymphocyte Count 0.88 X10^3/uL (0.83-4.51); Absolute Neutrophil Count 7.5 X10^3/uL (2.0-7.7); Basophil# 0.04 X10^3/uL; Basophil% 0.4 % (0-1); Eosinophil# 0.09 X10^3/uL; Eosinophils% 0.9 % (0-5); Hematocrit 35.9 % (40-54); Hemoglobin 10.6 g/dL (13.0-16.5); Lymphocyte # 0.88 X10^3/ul (0.83-4.51); Lymphocyte % 9.2 % (19-41); Mean Corp Hgb Conc 29.5 g/dL (32-36); Mean Corpuscular Hgb 22.6 pg (27.0-32.0); Mean Corpuscular Volume 76.4 fL (80-94); Monocyte# 0.99 X10^3/uL; Monocyte% 10.3 % (0-10); NRBC Flagged by Analyzer 0 % (0-5); Neutrophil # 7.54 X10^3/uL (2.7-7.7); Neutrophil % 78.6 % (47-70); Platelet Count 604 K/mm3 (150-450); RBC Distribution Width CV 16.7 % (11.6-14.6); RBC Distribution Width SD 45.3 fl (35.1-43.9); White Blood Count 9.6 K/mm3 (4.4-11.0)
--- NOTE | 2021-11-12 07:00 | CPS ---
Pt has not been able to wear his CPAP since his cancer dx, it began to cause problems.
[2021-11-12 07:21] LABS: ALB/GLOB Ratio 0.6 RATIO (0.9-2.4); AST(SGOT) 37 U/L (15-37); Alanine Aminotransfer ALT/SGPT 42 U/L (16-61); Albumin, Serum 2.4 g/dL (3.2-5.0); Alkaline Phosphatase 153 U/L (45-117); Anion Gap 10 (5-15); BUN 17 mg/dL (7-18); BUN/Creat Ratio 15.3 RATIO (10-20); Calcium,Total 8.8 mg/dL (8.5-10.1); Chloride 103 mmol/L (98-107); Creatinine, Serum 1.11 mg/dL (0.70-1.30); EST Glomerular Filtration Rate 78 mL/min (>60); Est Glom Filt Rate - Afr Amer 94 mL/min (>60); Globulin 4.1 g/dL (2.2-4.2); Glucose 105 mg/dL (74-106); Potassium 3.9 mmol/L (3.5-5.1); Protein, Total 6.5 g/dL (6.4-8.2); Sodium Level 136 mmol/L (136-145)
[2021-11-12] MEDS: Famotidine 20 MG Tablet PO ×2 (08:33→20:52)
--- NOTE | 2021-11-12 10:45 | PCM.PN.HOSP ---
Subjective Subjective Belly pain is improved but still distended. No issues overnight Objective Data Objective Data Vital Signs: Vital Signs Temp Pulse Resp BP Pulse Ox O2 Del Method 97.7 F L 89 18 137/92 H 94 Room Air 11/12/21 08:30 11/12/21 08:30 11/12/21 08:30 11/12/21 08:30 11/12/21 08:30 11/12/21 08:30 Oxygen Delivery Method Room Air Weight: 321 lb 6.943 oz Body Mass Index (BMI) 43.6 Lab / Micro Data Result Diagrams: 11/12/21 06:30 11/12/21 06:30 Labs: Laboratory Results - last 24 hr 11/11/21 21:00: WBC 10.8, RBC 4.87, Hgb 11.2 L, Hct 37.3 L, MCV 76.6 L, MCH 23.0 L, MCHC 30.0 L, RDW Std Deviation 45.0 H, RDW Coeff of Walter 16.5 H, Plt Count 682 H, MPV 9.2, Immature Gran % (Auto) 0.600, Neut % (Auto) 80.9 H, Lymph % (Auto) 8.3 L, [place] % (Auto) 9.0, Eos % (Auto) 0.8, Baso % (Auto) 0.4, Absolute Neuts (auto) 8.7 H, Absolute Lymphs (auto) 0.90, Nucleated RBC % 0 11/11/21 21:00: PT 14.8, INR 1.2, APTT 28.2 11/11/21 21:00: Sodium 138, Potassium 3.8, Chloride 105, Carbon Dioxide 23.0, Anion Gap 10, BUN 16, Creatinine 1.11, Estim Creat Clear Calc 97.10, Est GFR (MDRD) Af Amer 94, Est GFR (MDRD) Non-Af 78, BUN/Creatinine Ratio 14.4, Glucose 119 H, Calcium 9.0, Total Bilirubin 0.40, Direct Bilirubin 0.15, AST 38 H, ALT 39, Alkaline Phosphatase 158 H, Total Protein 6.6, Albumin 2.5 L, Globulin 4.1, Lipase 72 L 11/11/21 21:00: Phosphorus 4.2, Magnesium 2.4, Albumin 2.6 L 11/12/21 06:30: WBC 9.6, RBC 4.70, Hgb 10.6 L, Hct 35.9 L, MCV 76.4 L, MCH 22.6 L, MCHC 29.5 L, RDW Std Deviation 45.3 H, RDW Coeff of Walter 16.7 H, Plt Count 604 H, MPV 9.0, Immature Gran % (Auto) 0.600, Neut % (Auto) 78.6 H, Lymph % (Auto) 9.2 L, Phillips % (Auto) 10.3 H, Eos % (Auto) 0.9, Baso % (Auto) 0.4, Absolute Neuts (auto) 7.5, Absolute Lymphs (auto) 0.88, Nucleated RBC % 0 11/12/21 06:30: Sodium 136, Potassium 3.9, Chloride 103, Carbon Dioxide 23.0, Anion Gap 10, BUN 17, Creatinine 1.11, Estim Creat Clear Calc 97.10, Est GFR (MDRD) Af Amer 94, Est GFR (MDRD) Non-Af 78, BUN/Creatinine Ratio 15.3, Glucose 105, Calcium 8.8, Total Bilirubin 0.60, AST 37, ALT 42, Alkaline Phosphatase 153 H, Total Protein 6.5, Albumin 2.4 L, Globulin 4.1, Albumin/Globulin Ratio 0.6 L Micro: Microbiology 11/11/21 21:20 Nasal Secretion SARS-CoV-2 & FLU Antigen (Rapid) - Final Radiography Diagnostic Testing: Radiology Impression Abdomen/Pelvis CT 11/11/21 22:45 IMPRESSION: Findings consistent with metastatic disease with multiple hepatic masses, lung nodules and peritoneal carcinomatosis with omental caking, significantly progressed compared to the prior study. Large amount of ascites. No bowel obstruction. Mild rectal wall thickening is relatively decreased compared to prior study. CT chest reported separately. Electronically Signed: Silvia Taveras MD at 23:28 EDT , Chest CTA 11/11/21 22:45 IMPRESSION: No definite evidence of pulmonary emboli. Small questionable filling defect in the left lower lobe is most likely artifactual. Multiple pulmonary masses increased size compared to prior study consistent with metastatic disease. Small bilateral pleural effusions, new. Intra-abdominal findings, please see report of CT abdomen pelvis for complete details Electronically Signed: Silvia Taveras MD at 23:46 EDT , Physical Exam Const alert, oriented x3 and no apparent distress General Appearance: cooperative HEENT normocephalic and moist oral mucous membranes Eyes PERRL, EOMs intact bilaterally and conjunctivae normal Neck supple and no JVD Resp normal respiratory effort, no retractions and no use of accessory muscles Auscultation: diminished lung sounds; Negative for crackles, rales, rhonchi or wheezes Cardio regular rate, regular rhythm, S1 normal heart sound, S2 normal heart sound and no murmurs GI soft to palpation and non-tender; Negative for hepatosplenomegaly Inspection: abdominal distention Extremity no clubbing, cyanosis or edema Skin no rashes or lesions noted Neuro no focal motor deficits and no sensory deficits noted Psych affect normal Appearance: appropriate Assessment & Plan Assessment/Plan (1) Ascites: PLAN: Plan 1. Metastatic rectal cancer with mets to the liver and lung now with abdominal distention ? We will do a paracentesis and run cytology as well as SAAG gradient ? Consult patient's oncologist for discussion and evaluation ? Had a 25-minute advance care planning discussion ? Likely be able to discharge him after his paracentesis, he will not have a paracentesis today therefore he can eat and we will plan for a paracentesis in the morning 2. Hypothyroidism ? Stable ? Continue with Synthroid 3. LAWANDA/morbid obesity ? Stable ? Continue with CPAP ? Discussed lifestyle modifications DVT: SCDs secondary to paracentesis Charges/Coding Visit Charges OBSV E&M: 10213 Subsequent observation care L2
[2021-11-12] MEDS: Acetaminophen 325 MG Tablet 650 MG PO ×2 (14:06→20:52)
[2021-11-12] MEDS: oxyCODONE 5 MG Tablet PO ×2 (14:06→20:52)
--- NOTE | 2021-11-13 | IMM_PTH ---
PATIENT: JESENIA LARSEN LOC: 3 U#:[id number] AGE/SX: 41/M ROOM: MS305 RE11/13/[address]: Dr. Seamus Edward MD : 1980 BED: 1 DIS: 11/14/2021 SPEC #: [id number] RECD: 11/15/21 13:25 STATUS: NAM REJoyce #: [id number] SUSIE: 11/13/21 00:[address]: Seamus Edward DEPT: IMMUNOHISTOCHEMISTRY RECD BY: Shahida García ENTERED: 11/15/21 13:26 SP TYPE: IMMUNO OTHR DR: MD Dr. Leander Christina MD Dora Richardson Tissues: PARACENTESIS FLUID Procedures: Tuan Ret (add) CK20 (add) CK5-6 (add) CK7 (add) CK8 (add) MACRO (add) TTF1 (add) Vimentin (add) Pankeratin (initial) P40 (add) PHYSICIAN & [place] [id number] SPECIMEN INFORMATION: Tissue Source: Paracentesis fluid Clinical Info: Abdominal pain, metastatic cancer with ascites Specimen Number: [id number] CPT code: 13443, 18079 x9 METHODOLOGY: Deparaffinized sections of prefer/formalin-fixed tissue or PAP/DQ stained slides are incubated with monoclonal/polyclonal antibodies/oligonucleotide probes. Localization is made via biotin free immunoperoxidase method. Appropriate controls are performed and reacted as expected. Results on target cell population are indicated in the following table: RESULTS: ANTIBODY / CLONE RESULT AE1-3 (AE1/AE3/PCK26) negative * CK7 (OV-TL12/30) negative * CK8 ([id number]) negative * CK20 (KS20.8) negative Vimentin (V9) negative Macro (HAM-56) negative TTF-1 (8G7G3/1) negative CALRET (polyclonal) negative * CK5-6 (D5 & 1684) negative P40 (BC28) negative *?Positive in mesothelial cells. These tests were developed and their performance characteristics determined by [facility]. They may not have been cleared or approved by the U.S. Food and Drug Administration. The FDA has determined that such clearance or approval is not necessary. The above immunohistochemical/dualISH markers are ordered and reviewed by the Pathologist. INTERPRETATION: Paracentesis fluid (cell block): Negative for malignant cells. SJ:lori 11/16/2021
[2021-11-13 03:15] VITALS: BP 147/92; PULSE 90; RESP 18; TEMP 36.5; O2SAT 95
[2021-11-13] MEDS: Levothyroxine 50 MCG Tablet PO (05:07)
[2021-11-13] MEDS: 0.9% Saline Lock 10 ML Syringe IV ×2 (05:12→15:42)
[2021-11-13] MEDS: Morphine 2 MG/ML Syringe IV (05:12)
[2021-11-13 07:10] LABS: International Normalized Ratio 1.2; Prothrombin Time (Protime)PT. 14.7 SECONDS (11.7-14.9)
[2021-11-13 09:00] VITALS: BP 141/106; PULSE 90; RESP 16; TEMP 36.3; O2SAT 94
[2021-11-13] MEDS: Famotidine 20 MG Tablet PO ×2 (09:48→21:07)
--- NOTE | 2021-11-13 12:23 | PCM.PN.HOSP ---
Subjective Subjective Doing well, abdominal pain has resolved. Planning for paracentesis today and liver biopsy tomorrow morning Objective Data Objective Data Vital Signs: Vital Signs Temp Pulse Resp BP Pulse Ox O2 Del Method 97.4 F L 90 16 141/106 H 94 Room Air 11/13/21 09:00 11/13/21 09:00 11/13/21 09:00 11/13/21 09:00 11/13/21 09:00 11/13/21 09:00 Oxygen Delivery Method Room Air Weight: 320 lb 1.779 oz Body Mass Index (BMI) 43.6 Intake & Output: Intake and Output for Last 24 Hours 11/12/21 11/13/21 11/14/21 03:59 03:59 03:59 Output Total 0 / 0 Balance 0 / 0 Lab / Micro Data Result Diagrams: 11/12/21 06:30 11/12/21 06:30 Labs: Laboratory Results - last 24 hr 11/13/21 05:45: PT 14.7, INR 1.2, APTT 30.0 Micro: Microbiology 11/11/21 21:20 Nasal Secretion SARS-CoV-2 & FLU Antigen (Rapid) - Final Physical Exam Narrative Const alert, oriented x3 and no apparent distress General Appearance: cooperative HEENT normocephalic and moist oral mucous membranes Eyes PERRL, EOMs intact bilaterally and conjunctivae normal Neck supple and no JVD Resp normal respiratory effort, no retractions and no use of accessory muscles Auscultation: diminished lung sounds; Negative for crackles, rales, rhonchi or wheezes Cardio regular rate, regular rhythm, S1 normal heart sound, S2 normal heart sound and no murmurs GI soft to palpation and non-tender; Negative for hepatosplenomegaly Inspection: abdominal distention Extremity no clubbing, cyanosis or edema Skin no rashes or lesions noted Neuro no focal motor deficits and no sensory deficits noted Psych affect normal Appearance: appropriate Assessment & Plan Assessment/Plan (1) Ascites: PLAN: Plan 1. Metastatic rectal cancer with mets to the liver and lung now with abdominal distention ? We will do a paracentesis and run cytology as well as SAAG gradient ? Consult patient's oncologist for discussion and evaluation ?Would like to stay until tomorrow to get his liver biopsy and then go home 2. Hypothyroidism ? Stable ? Continue with Synthroid 3. LAWANDA/morbid obesity ? Stable ? Continue with CPAP ? Discussed lifestyle modifications DVT: SCDs secondary to paracentesis Charges/Coding Visit Charges OBSV E&M: 94864 Subsequent observation care L2
--- NOTE | 2021-11-13 12:30 | US_ITS ---
PROCEDURE: Ultrasound guided paracentesis. DATE OF EXAMINATION: 11/13/2021. INDICATION: Male, 41 years old. Ascites. PHYSICIAN: Lm Robb M.D. TECHNIQUE: The risks, benefits, and alternatives to the procedure were explained to the patient. The specific risks of bleeding, infection, and damage to bowel were detailed and accepted. Witnessed informed consent was obtained. The abdomen was ultrasonographically surveyed. An appropriate pocket of fluid was identified at the right lower quadrant. The skin were cleaned and prepped in the usual sterile fashion. Using ultrasound guidance, the peritoneal cavity was accessed with a 5-Jamaican paracentesis needle/catheter system. The trocar was removed. A total of 9050 ml of tarik-colored fluid were removed from the peritoneal cavity. The catheter was removed and a sterile dressing was applied. The procedure was well tolerated. US/Paracentesis with US IMPRESSION: Ultrasound guided paracentesis. Electronically Signed: Lm Robb MD at 13:41 EDT ,
[2021-11-13 12:35] VITALS: BP 127/83; BP 137/79; BP 138/94; BP 143/92; PULSE 102; PULSE 87; PULSE 95; PULSE 98; RESP 16; TEMP 36.6; O2SAT 93; O2SAT 94; O2SAT 95
[2021-11-13] MEDS: Lidocaine 2% (20 ml mdv) 20 ML Vial INFILT (12:39)
--- NOTE | 2021-11-13 12:42 | FLU_PTH ---
PATIENT: JESENIA LARSEN LOC: MS3 U#:[id number] AGE/SX: 41/M ROOM: [facility] RE11/13/[address]: Dr. Seamus Edward MD : 1980 BED: 1 DIS: 11/14/2021 SPEC #: [id number] RECD: 11/13/21 12:55 STATUS: NAM MESA #: [id number] SUSIE: 11/13/21 12:[address]: Seamus Edward DEPT: CYTOLOGY RECD BY: Jose Miles ENTERED: 11/13/21 13:44 SP TYPE: Fluid OTHR DR: MD Dr. Leander Christina MD Dora Richardson Tissues: PARACENTESIS FLUID Procedures: Special Stain Group II Surgery Specimen Level IV Cytospin Fluid HEADER OPERATION: Ultrasound-guided paracentesis PRE-OP DIAGNOSIS: Abdominal pain, metastatic cancer with ascites TISSUE SUBMITTED: Paracentesis fluid for cytology DIAGNOSIS CYTOLOGY Paracentesis fluid for cytology (cytospin and cell block): Negative for malignant cells. See comment. COLIN:lori 11/15/2021 COMMENT Immunohistochemistry ([id number]) supports the above diagnosis. Please also make reference to additional specimen ([id number]), liver, CT-guided core biopsy with diagnosis of metastatic adenocarcinoma, consistent with colonic/rectal primary. Case has been reviewed in consultation with Dr. Jay who concurs with the above diagnosis. IDC:AM CYTOLOGY STUDY Slides are reviewed. CYTOLOGY GROSS Received is 85 ml of yellow hazy fluid labeled with the patient's name and and designated per the requisition as paracentesis. Submitted for cytology preparation including cell block. / lori 11/13/2021 TC:5 CPT: 58016, 16359
[2021-11-13 12:56] LABS: Cytology, Body Fluid / CSF SEE PATHOLOGY REPORT
[2021-11-13 13:00] VITALS: O2SAT 97
[2021-11-13 13:27] VITALS: BP 138/83; PULSE 92; RESP 18; TEMP 37.2; O2SAT 97
[2021-11-13 13:38] LABS: Glucose, Body Fluid 77 mg/dL (40-70); LDH,Body Fluid 295 Units/l (Not Establ.)
[2021-11-13 14:00] LABS: Body Fluid Mononuclear WBC # 0.429 10^3/uL; Body Fluid Mononuclear WBC % 75.8 %; Body Fluid Polynuclear WBC # 0.137 10^3/uL; Body Fluid Polynuclear WBC % 24.2 %; Body Fluid Total Cells Counted 0.672 10^3/ul; Red Cell Count/Body Fluid 0.003 10^6/ul; White Blood Count/Body Fluid 0.566 10^3/uL
[2021-11-13 14:08] LABS: Specific Gravity, Body Fluid 1.026
[2021-11-13 14:09] LABS: Auto B Fluid Analyzer BKGD Ct COUNTS W/IN LIMITS (W/IN LIMITS)
[2021-11-13 14:10] LABS: Appearance/Body Fluid SL CLDY; Color/Body Fluid YELLOW; Source- Body Fluid OTHER
[2021-11-13 14:35] LABS: Lymphocytes 38 %; Monocytes 8 %; Neutrophil (Segs) 30 %; Other Cell Type/BF 24 %
[2021-11-13 14:36] LABS: Body Fluid QC Type(s) BF1Q
[2021-11-13] MEDS: Albumin Human 25% (100 mL) 25 GM/100 ML BAG IV (15:42)
--- NOTE | 2021-11-13 17:01 | CON.PCM.ON_ITS ---
Assessment & Plan Assessment/Plan (1) Rectal cancer: Status: Chronic Code(s): C20 - Malignant neoplasm of rectum Plan: CT imaging obtained 11/11/2021 reviewed, demonstrates progressive disease as evidenced by increased burden in the lung, new peritoneal carcinomatosis with omental caking and large ascites. CT-guided liver biopsy for PD-L1 testing scheduled for tomorrow. [facility] is in the process of coordinating next line therapy with Stivarga. Patient is instructed to hold his medication when it is delivered and contact [facility] if he receives Stivarga prior to his next scheduled follow- up on November 22. (2) Rectal cancer metastasized to lung: Status: Chronic Code(s): C20 - Malignant neoplasm of rectum; C78.00 - Secondary malignant neoplasm of unspecified lung (3) Rectal cancer metastasized to liver: Status: Acute Code(s): C20 - Malignant neoplasm of rectum; C78.7 - Secondary malignant neoplasm of liver and intrahepatic bile duct (4) Ascites: Status: Acute Code(s): R18.8 - Other ascites Plan: Underwent therapeutic and diagnostic paracentesis earlier today, approximately 9 L were removed. Patient symptoms improving. Consider adding Aldactone upon discharge Case discussed with Dr. Quintero who is agreement with the aforementioned plan. HPI Consult Data Date of Service:: 11/14/21 PCP / Referring Provider: Breana Arroyo Attending: Dr. Seamus Edward MD Chief Complaint Chief Complaint: metastatic rectal cancer History of Present Illness History of Present Illness: Mr. Mota is a very pleasant 41 y/o man who initially presented with rectal bleed fall. Colonoscopy on 03/30/2020, which showed synchronous tumors in rectum and sigmoid colon. Pathology showed mucinous moderately differentiated adenocarcinoma in the rectum, moderately differentiated adenocarcinoma in sigmoid colon with multiple polyps. PET CT scan for initial staging obtained on 04/03/2020 showed 2 synchronous lesions in sigmoid and rectum as well as multiple lesions in the liver consistent with metastatic disease. MRI 04/12/2021 showed rectal mass extending to the posterior wall of bladder, invading mesorectal fascia, 2 lymph nodes in mesorectal fascia, stage T4a N1. CEA was 35. 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 He has received several lines of 5-FU based chemotherapy and concurrent chemoradiation to the primary tumor. His care has been complicated by an extensive DVT associated with PICC line and multiple port infections. June 2021 patient elected to take a treatment break. A CT chest abdomen and pelvis with contrast obtained September 14, 2021 per his primary oncologist Dr. Quintero demonstrated new multiple bilateral pulmonary nodules, several solid nodules in both lobes of the liver and diffuse wall thickening of the rectum with narrowing of the lumen. At that point was recommended he undergo liver biopsy for PD-L1 testing and oral regorafenib was offered as next line therapy. In the interim, the patient presented to [facility] on 11/11/2021 with complaints of dry cough and abdominal pain and bloating. CTA of the chest showed no evidence to suggest PE but demonstrated small bilateral pleural effusions which developed from CT scans in September. A dedicated CT abdomen and pelvis with contrast showed progressive disease as evidenced by increasing hepatic masses, lung nodules peritoneal carcinomatosis with omental caking and large amount of ascites, no evidence of obstruction. Labs significant for alk phos 158, AST 38, albumin 2.6, hemoglobin 11.2, platelets 682,000. He was subsequently admitted. He underwent paracentesis earlier today approximately 9 L of fluid were aspirated. Upon entering the room patient is lying flat in bed sleeping. Patient does report vast improvement of dyspnea already and has been able to eat subsequent to his procedure. Dry cough continues. Specifically denies headache, dizziness, abdominal pain. He is passing gas. Advanced Directives Power of Through Operator: No Living Will: No PFSH Medical History Colon cancer Diarrhea due to drug DVT (deep venous thrombosis) Encounter for education Liver cancer Neuropathy Non-smoker Sleep apnea Surgical wound, non healing Wears glasses Home Medications aspirin 81 mg tablet,delayed release 81 mg PO BID [facility] 09/20/20 [History Last Taken 11/11/21] ascorbic acid (vitamin C) 500 mg capsule 500 mg PO DAILY SUPPLEMENT 12/18/20 [History Last Taken 11/05/21] multivitamin 1 tab PO DAILY SUPPLEMENT 12/18/20 [History Last Taken 11/11/21] omega-3 acid ethyl esters 1 gram capsule 1 cap PO DAILY SUPPLEMENT 12/18/20 [History Last Taken 11/05/21] levothyroxine 50 mcg tablet 50 mcg PO DAILY THYROID 11/12/21 [History Last Taken 06/27/22] Allergy/AdvReac Type Severity Reaction Status Date / Time amoxapine Allergy Severe RASH Verified 11/14/21 08:39 amoxicillin Allergy Severe HEAT RASH Verified 11/14/21 08:39 Penicillins Allergy Rash Verified 11/14/21 08:39 Family History Father CVA (cerebral vascular accident) Other Heart disease Liver cancer Stomach cancer Surgical History History of vascular access device [place] teeth extracted Social History household members: none Smoking Status: Never smoker second hand exposure: No alcohol intake: current substance use type: does not use ROS ROS Narrative Negative except as documented in the interval HPI Physical Exam Narrative ECOG 0 Const alert, oriented x3 and no apparent distress HEENT normocephalic and head/scalp atraumatic Eyes PERRL and no scleral icterus Eyes Narrative: Wears glasses Neck supple and no JVD General: trachea midline Chest Chest: symmetrical chest wall rise Resp normal respiratory effort Effort and Inspection: able to speak in complete sentences Auscultation: clear to auscultation bilaterally Cardio regular rate, regular rhythm, S1 normal heart sound, S2 normal heart sound and no murmurs GI soft to palpation Auscultation: normoactive bowel sounds Palpation: soft and no hepatosplenomegaly; Negative for tender Extremity no clubbing, cyanosis or edema and no calf tenderness Extremity Narrative: Wearing SCDs Skin no rashes or lesions noted General Skin Exam: Negative for ecchymosis or petechiae Neuro CN's II-XII intact bilaterally Psych affect normal Attitude: calm and engaged Vital Signs Temperature 98.9 F 11/13/21 13:27 Temperature Source Oral 11/13/21 13:27 Pulse Rate 92 11/13/21 13:27 Pulse Strength Normal (2+) 11/13/21 09:05 Respiratory Rate 18 11/13/21 13:27 Respiratory Effort 11/13/21 13:27 Respiratory Depth Normal 11/13/21 13:27 Respiratory Pattern Normal 11/13/21 13:27 Blood Pressure 138/83 H 11/13/21 13:27 Blood Pressure Mean 101 11/13/21 13:27 Blood Pressure Source Monitor 11/13/21 13:27 Blood Pressure Position Semi-Fowlers 11/13/21 13:27 Blood Pressure Location Right Arm 11/13/21 13:27 Pulse Ox 97 11/13/21 13:27 Oxygen Delivery Method Room Air 11/13/21 13:27 Laboratory Results - last 24 hr 11/13/21 05:45: PT 14.7, INR 1.2, APTT 30.0 11/13/21 12:42: Fluid Glucose 77 H, Fluid Total Protein 4.0, Fluid LDH 295 11/13/21 12:42: Fluid Specific Grav 1.026 11/13/21 12:42: Fluid Source OTHER, Fluid Color YELLOW, Fluid Appearance SL CLDY, Fluid WBC 0.566, Fluid RBC 0.003, Fluid Tot Cell Count 0.672, Fld Polynuclear WBCs # 0.137, Fld Polynuclear WBCs % 24.2, Fluid Mononuclear WBCs 0.429, Fld Mononuclear WBCs % 75.8, Fluid Neutrophils 30, Fluid Lymphocytes 38, Fluid Monocytes 8, Fluid Other Cells 24, Fl Pathologist Comment May follow, Fluid Comment 2 SEE COMMENT Microbiology 11/13/21 12:42 Fluid - Paracentesis (Abd) Gram Stain - Final Diagnostic Data Abdomen/Pelvis CT 11/11/21 22:45 IMPRESSION: Findings consistent with metastatic disease with multiple hepatic masses, lung nodules and peritoneal carcinomatosis with omental caking, significantly progressed compared to the prior study. Large amount of ascites. No bowel obstruction. Mild rectal wall thickening is relatively decreased compared to prior study. CT chest reported separately. Electronically Signed: Silvia Taveras MD at 23:28 EDT , Chest CTA 11/11/21 22:45 IMPRESSION: No definite evidence of pulmonary emboli. Small questionable filling defect in the left lower lobe is most likely artifactual. Multiple pulmonary masses increased size compared to prior study consistent with metastatic disease. Small bilateral pleural effusions, new. Intra-abdominal findings, please see report of CT abdomen pelvis for complete details Electronically Signed: Silvia Taveras MD at 23:46 EDT , Paracentesis Ultrasound 11/13/21 12:30 IMPRESSION: Ultrasound guided paracentesis. Electronically Signed: Lm Robb MD at 13:41 EDT ,
--- NOTE | 2021-11-13 17:27 | CASEMGMT ---
JANAY ECHEVARRIA NOTE: JANAY ECHEVARRIA to room. Pt resting in bed. Introduced self and role. Pt states he lives alone and is independent. He drives and denies having transportation concerns. He states he has good family support. PCP is [facility] Breana Arroyo and he sees Dr Quintero, oncology. Insurance is [employer] and he states he has rx benefits. JANAY ECHEVARRIA broached topic of Palliative care. He states he may be interested, but he is not sure. He lives in [place]. JANAY ECHEVARRIA recommended he f/u with Dr Quintero to discuss Palliative is he decides he is interested in it. He voices understanding. Pt denies having any home-going needs or concerns. Selena FIGUEROA RN, CM
[2021-11-13 19:15] VITALS: BP 118/74; PULSE 95; RESP 18; TEMP 36.4; O2SAT 95
[2021-11-14] VITALS (12 sets, daily range): BP systolic 115–146; BP diastolic 72–99; PULSE 81–101; RESP 16–21; TEMP 36.8–37; O2SAT 93–98
--- NOTE | 2021-11-14 | IMM_PTH ---
PATIENT: JESENIA LARSEN LOC: MS3 U#:[id number] AGE/SX: 41/M ROOM: [facility]305 RE11/13/[address]: Dr. Seamus Edward MD : 1980 BED: 1 DIS: 11/14/2021 SPEC #: [id number] RECD: 11/14/21 13:05 STATUS: NAM REJoyce #: [id number] SUSIE: 11/14/21 00:[address]: Seamus Edward DEPT: IMMUNOHISTOCHEMISTRY RECD BY: Shahida García ENTERED: 11/14/21 13:10 SP TYPE: IMMUNO OTHR DR: MD Dr. Leander Christina MD Dora Richardson Tissues: Liver, NOS Procedures: RCC (add) NAPSIN A (add) CK20 (add) CK5-6 (add) CK7 (add) CK8 (add) HEP PAR (add) TTF1 (add) Pankeratin (initial) P40 (add) PSAP (add) PHYSICIAN & [address] [address] SPECIMEN INFORMATION: Tissue Source: Liver Clinical Info: Liver mass Specimen Number: [id number] CPT code: 16318, 17980 x10 METHODOLOGY: Deparaffinized sections of prefer/formalin-fixed tissue or PAP/DQ stained slides are incubated with monoclonal/polyclonal antibodies/oligonucleotide probes. Localization is made via biotin free immunoperoxidase method. Appropriate controls are performed and reacted as expected. Results on target cell population are indicated in the following table: RESULTS: ANTIBODY / CLONE RESULT AE1-3 (AE1/AE3/PCK26) positive CK7 (OV-TL12/30) negative CK8 (30owrsA22) positive CK20 (KS20.8) positive TTF-1 (8G7G3/1) negative Napsin A (Rabbit Polyclonal) positive HepPar (OCh1E5) negative RCC (PN-15) negative PSAP (PASE/4LJ) negative CK5-6 (D5 & 1684) negative P40 (BC28) negative These tests were developed and their performance characteristics determined by [facility]. They may not have been cleared or approved by the U.S. Food and Drug Administration. The FDA has determined that such clearance or approval is not necessary. The above immunohistochemical/dualISH markers are ordered and reviewed by the Pathologist. INTERPRETATION: Liver, CT-guided biopsy: Metastatic adenocarcinoma consistent with colonic/rectal primary SJ:lori 11/15/2021 Case has been reviewed in consultation with Dr. Jay who concurs with the above diagnosis. IDC:TRISTA
--- NOTE | 2021-11-14 | ASPIGT_PTH ---
PATIENT: JESENIA LARSEN LOC: MS3 U#:[id number] AGE/SX: 41/M ROOM: [facility] [place] RE11/13/[address]: Dr. Seamus Edward MD : 1980 BED: 1 DIS: 11/14/2021 SPEC #: [id number] RECD: 11/14/21 09:30 STATUS: NAM WELLERJoyce #: [id number] SUSIE: 11/14/21 00:[address]: Seamus Edward DEPT: SURGICAL PATHOLOGY RECD BY: Brisa Dill ENTERED: 11/14/21 12:10 SP TYPE: ASP RAD OTHR DR: MD Dr. Leander Christina MD Dora Richardson Tissues: Liver, NOS Procedures: FNA Specimen Adequacy Special Stain Group II Surgery Specimen Level IV Imprint (control) HEADER OPERATION: CT-guided liver biopsy PRE-OP DIAGNOSIS: Liver mass TISSUE SUBMITTED: Liver MICROSCOPIC DIAGNOSIS Liver, CT-guided core biopsy: Metastatic adenocarcinoma, consistent with colonic/rectal primary. See comment. SJ:lori 11/15/2021 COMMENT The specimen is evaluated at the time of biopsy by Dr. Mccormick. Immediate Evaluation = Malignant cells present derived from non-small cell carcinoma. Immunohistochemistry ([id number]) supports the above diagnosis. As per EMR, the patient has history of rectal and colonic carcinoma. Immunohistochemistry for mismatched repair protein (microsatellite instability) by IHC can be performed, if clinically indicated, please notify the laboratory if it is needed. Case has been reviewed in consultation with Dr. Jay who concurs with the above diagnosis. IDC:AM MICROSCOPIC DESCRIPTION Slides are reviewed. GROSS DESCRIPTION Received is one container labeled with the patient's name and not further designated. The specimen consists of multiple elongated fragments of goff tissue that in aggregate measure 1.8 x 0.5 x 0.1 cm. The specimen is totally submitted in one cassette. Three touch imprints are prepared at the time of core biopsy. / AM:lori 11/14/2021 TC:0 CPT: 71479, 75470 ADDENDUM ADDENDUM ADDENDUM ADDENDUM ADDENDUM ADDENDUM 11/27/2021 09:58 ADDENDUM 12/17/2021 08:53 ADDENDUM 11/27/2021 09:58 ADDENDUM 11/27/2021 09:58 ADDENDUM 11/27/2021 09:58 ADDENDUM 11/27/2021 09:58 PD-L1 (KEYTRUDA) IMMUNOHISTOCHEMICAL ANALYSIS FROM [facility] RESULTS: Tumor proportion score: <1% / Negative Please see complete report in e-chart or EMR [facility] NGS REPORT FROM [facility] RESULT SUMMARY: Abnormal IMMUNOTHERAPY BIOMARKERS: Tumor Mutation [place]: Low (3.1 Mutations / MB) Microsatellite Instability: MSI Negative PERTINENT NEGATIVE RESULTS: The following genes are NEGATIVE for clinically relevant mutations. Mutational hotspots and surrounding exonic regions were interrogated for DNA level point mutations and indels (fusions not assayed). AKT1, ATR, BRAF, CHEK1, EGFR, EPCAM, ERBB2, ERBB3, ERBB4, FGFR1, FGFR2, FGFR3, FGFR4, HRAS, MAP2K1, MET, MLH1, MSH2, MSH6, NRAS, NTRK1, PIK3CA, PMS2, POLD1, POLE, PTEN, STK11, TERT, TP53 Please see complete report in e-chart or EMR
--- NOTE | 2021-11-14 08:54 | CT_ITS ---
PROCEDURE: CT DIRECTED CORE LIVER BIOPSY INDICATION: Male, 41 years old. LIVER BIOPSY FOR MOLECULAR MARKERS, PD-L1/PD-1 PHYSICIAN: Dr. JAELYN Deleon CONSENT: Written informed consent was obtained having explained the risks, benefits and alternatives in detail with the patient who accepted the risks and agreed to proceed. Laboratory review and clinical assessment was performed. CONSCIOUS SEDATION PROTOCOL: The Drugs used were: 2 mg Versed, IV., and 50 mcg Fentanyl, IV. The sedation time was: 15 minutes. Conscious sedation was started at 9:17 AM and terminated at 9:42 AM. The conscious sedation protocol was independently monitored. RADIATION DOSAGE (If Supplied By Facility): CTDIvol = ( 21 ) mGy, DLP = ( 850.12 ) mGycm Individualized dose optimization techniques were used for this CT. TECHNIQUE: Using CT image guidance with image documentation, a suitable location in the right lobe of the liver was identified. Using an anterior approach, puncture of the liver was uneventful with an 18-gauge core needle system. 4, 18-gauge core samples were obtained, and submitted in formalin to the pathologist for further assessment. Followup CT scan revealed no distinct sequelae. CT/Biopsy/Inj or Needle Placement IMPRESSION: 1. CT directed core needle biopsy of the liver, using CT image guidance with image documentation as described. 2. Conscious Sedation protocol utilized with independent monitoring. Electronically Signed: Lm Robb MD at 10:07 EDT ,
[2021-11-14] MEDS: Midazolam 2 MG/2 ML Syringe IV (09:17)
[2021-11-14] MEDS: fentaNYL 100 MCG/2 ML Ampul IV (09:17)
[2021-11-14] MEDS: Lidocaine 2% (20 ml mdv) 20 ML Vial INFILT (09:22)
--- NOTE | 2021-11-14 10:13 | DCINST_ITS ---
Discharge Instructions Diet Discharge Diet: No restrictions Activity Discharge Activity: Return to Normal Activity Dressing / Incision Call your doctor if your incision/area has: Continuous Slow Oozing, Increased Redness and Foul Smelling Discharge Call your doctor if you observe: Fever of 101 or Higher, Shortness of breath, Dizziness, Fainting spells, Swelling in the ankles, Chest pain and Increased palpitations (irregular heartbeat) Follow Up Care Test Results: Test results from this visit will be discussed in further detail at your follow- up appointment, if applicable. Discharge Plan Admission Admit Date/Time: 11/13/21 12:30 Attending Provider: Seamus Edward Primary Care Provider: Breana Arroyo Consulting Providers: Andreea Truong ; Leander Stallings Instructions Forms: Work / School Excuse Patient Instructions: Biopsy Liver Dc Discharge Orders/Prescriptions Prescriptions: Continued ascorbic acid (vitamin C) 500 mg capsule 500 mg PO DAILY multivitamin Tablet 1 tab PO DAILY omega-3 acid ethyl esters 1 gram capsule 1 cap PO DAILY aspirin 81 mg tablet,delayed release (DR/EC) 81 mg PO BID levothyroxine 50 mcg tablet 50 mcg PO DAILY Referrals / Follow Up: Breana Arroyo [Primary Care Provider] - Disposition Disposition (needs filled in before D/C Order can be placed): Home, Self Care
--- NOTE | 2021-11-14 10:14 | DS.PCM_ITS ---
Providers Date of Admission: 11/13/21 Primary Care Physician: Breana Arroyo Consultations 11/12/21 09:19 Consult: Oncology/Hematology Routine Consulting Provider: Leander Stallings Reason for Consult: metastatic cancer, pt known to you EMERGENT Consult: No MD Notified: Yes Date Notified: 11/12/21 Time Notified: 10:32 Method of Notification: Text Reason For Visit: intractabe pain, metastatic cca, ascites with Diagnosis Discharge Diagnosis (1) Rectal cancer: Status: Chronic Code(s): C20 - Malignant neoplasm of rectum (2) Rectal cancer metastasized to lung: Status: Chronic Code(s): C20 - Malignant neoplasm of rectum; C78.00 - Secondary malignant neoplasm of unspecified lung (3) Rectal cancer metastasized to liver: Status: Acute Code(s): C20 - Malignant neoplasm of rectum; C78.7 - Secondary malignant neoplasm of liver and intrahepatic bile duct (4) Ascites: Status: Acute Code(s): R18.8 - Other ascites Plan 1. Metastatic rectal cancer with mets to the liver and lung now with abdominal distention ? We will do a paracentesis and run cytology as well as SAAG gradient ? Consult patient's oncologist for discussion and evaluation ?Would like to stay until tomorrow to get his liver biopsy and then go home 2. Hypothyroidism ? Stable ? Continue with Synthroid 3. LAWANDA/morbid obesity ? Stable ? Continue with CPAP ? Discussed lifestyle modifications DVT: SCDs secondary to paracentesis Medications at Discharge Home Medications aspirin 81 mg tablet,delayed release 81 mg PO BID [facility] 09/20/20 ascorbic acid (vitamin C) 500 mg capsule 500 mg PO DAILY SUPPLEMENT 12/18/20 multivitamin 1 tab PO DAILY SUPPLEMENT 12/18/20 omega-3 acid ethyl esters 1 gram capsule 1 cap PO DAILY SUPPLEMENT 12/18/20 levothyroxine 50 mcg tablet 50 mcg PO DAILY THYROID 11/12/21 Hospital Course Operations None Procedures Paracentesis and - (Liver biopsy) Summary of Care Provided Minutes Spent on Discharge: 40 Hospital Course: Per HPI: The patient is a 41 y/o M w/ PMHx: Morbid Obesity, Hx DVT, LAWANDA on CPAP q HS, Metastatic Rectal CA to liver, lung following w/ Dr. Quintero, Hypothyroidism who presents to the [facility] ED on 11/11/21 with history of persistent and mildly incr eased nonproductive cough over the last 2 weeks as well as abdominal distention and discomfort described as a dull aching and cramping 8 out of 10 in severity at its worst, 3 out of 10 at its least, worse with any ambulatory attempts with associated exertional dyspnea over the last 3 days with no recent fevers or chills.? He does state that he has upcoming liver biopsy this week.? Patient with recent oncology visit 10/25/2021. Work-up in the ED included T96.6, heart rate 116, BP 157/99, respiratory rate 16, 95% on room air, CBC with WC 10.8, hemoglobin 0.2 with MCV 76.6, platelets 682 with mild left shift, unremarkable coags, CMP not marked appearing aside glucose 119, AST 38, alk phos 158, lipase 72, CTA chest with no definitive evidence of PE, small questionable filling defect left lower lobe likely artifactual, multiple pulmonary masses increased in size compared to recent prior study consistent with metastatic disease, small bilateral pleural effusions new from prior, CT abdomen and pelvis with findings consistent with metastatic disease with multiple hepatic masses, lung nodules and peritoneal carcinomatosis with omental caking significantly progressed since prior study, large amount of ascites, no evidence of any bowel obstruction, mild rectal wall thickening is actually relatively decreased compared to prior study.? In the ED patient administered Toradol 30 mg IV x1. Hospital Course: 1.? Metastatic rectal cancer with mets to the liver and lung now with abdominal distention ? He had 9 L off of his paracentesis, studies are pending ? Consult patient's oncologist for discussion and evaluation ? Had a CT-guided liver biopsy today pathology is pending ? He does feel much better today after his paracentesis yesterday, I do recommend that he follow-up with his PCP in 3 to 5 days as well as oncology to follow-up results from his paracentesis as well as his biopsy. I discussed with him the plan for discharge and he expressed understanding of the risk benefits of going home and would like to go home today. I did discuss with him the possibility that the ascites could return especially if it is related to malignancy and that he may benefit from periodic paracentesis which can be arranged on an outpatient basis by his PCP and/or by oncology. 2.? Hypothyroidism ? Stable ? Continue with Synthroid 3.? LAWANDA/morbid obesity ? Stable ? Continue with CPAP ? Discussed lifestyle modifications Physical Exam Narrative Const alert, oriented x3 and no apparent distress General Appearance: cooperative HEENT normocephalic and moist oral mucous membranes Eyes PERRL, EOMs intact bilaterally and conjunctivae normal Neck supple and no JVD Resp normal respiratory effort, no retractions and no use of accessory muscles Auscultation: diminished lung sounds; Negative for crackles, rales, rhonchi or wheezes Cardio regular rate, regular rhythm, S1 normal heart sound, S2 normal heart sound and no murmurs GI soft to palpation, nondistended and non-tender; Negative for hepatosplenomegaly Extremity no clubbing, cyanosis or edema Skin no rashes or lesions noted Neuro no focal motor deficits and no sensory deficits noted Psych affect normal Appearance: appropriate Weight / BMI Weight Weight: 317 lb 7.45 oz Body Mass Index (BMI) 43.6 ABG / Lab / Microbiology Data Result Diagrams: 11/12/21 06:30 11/12/21 06:30 Laboratory: Laboratory Results - last 24 hr 11/13/21 12:42: Fluid Glucose 77 H, Fluid Total Protein 4.0, Fluid LDH 295 11/13/21 12:42: Fluid Specific Grav 1.026 11/13/21 12:42: Fluid Source OTHER, Fluid Color YELLOW, Fluid Appearance SL C LDY, Fluid WBC 0.566, Fluid RBC 0.003, Fluid Tot Cell Count 0.672, Fld Polynuclear WBCs # 0.137, Fld Polynuclear WBCs % 24.2, Fluid Mononuclear WBCs 0.429, Fld Mononuclear WBCs % 75.8, Fluid Neutrophils 30, Fluid Lymphocytes 38, Fluid Monocytes 8, Fluid Other Cells 24, Fl Pathologist Comment May follow, Fluid Comment 2 SEE COMMENT Microbiology: Microbiology 11/13/21 12:42 Fluid - Paracentesis (Abd) Gram Stain - Final 11/13/21 12:42 Fluid - Paracentesis (Abd) Body Fluid Culture - Preliminary No growth-Final to follow 11/11/21 21:20 Nasal Secretion SARS-CoV-2 & FLU Antigen (Rapid) - Final Radiography Diagnostic Testing: Radiology Impression Paracentesis Ultrasound 11/13/21 12:30 IMPRESSION: Ultrasound guided paracentesis. Electronically Signed: Lm Robb MD at 13:41 EDT , Biopsy CT 11/14/21 08:54 IMPRESSION: 1. CT directed core needle biopsy of the liver, using CT image guidance with image documentation as described. 2. Conscious Sedation protocol utilized with independent monitoring. Electronically Signed: Lm Robb MD at 10:07 EDT , D/C Instructions Discharge Diet: No restrictions Call your doctor if your incision/area has: Continuous Slow Oozing, Increased Redness and Foul Smelling Discharge Call your doctor if you observe: Fever of 101 or Higher, Shortness of breath, Dizziness, Fainting spells, Swelling in the ankles, Chest pain and Increased palpitations (irregular heartbeat) Meaningful Use Info Meaningful Use Diagnoses (Choose all that apply): None applicable Discharge Plan Admission Admit Date/Time: 11/13/21 12:30 Attending Provider: Seamus Edward Primary Care Provider: Breana Arroyo Consulting Providers: Andreea Truong ; Leander Stallings Instructions Forms: Work / School Excuse Patient Instructions: SOLANGE GUSTAFSON Biopsy Liver Dc Discharge Orders/Prescriptions Prescriptions: Continued ascorbic acid (vitamin C) 500 mg capsule 500 mg PO DAILY multivitamin Tablet 1 tab PO DAILY omega-3 acid ethyl esters 1 gram capsule 1 cap PO DAILY aspirin 81 mg tablet,delayed release (DR/EC) 81 mg PO BID levothyroxine 50 mcg tablet 50 mcg PO DAILY Referrals / Follow Up: Breana Arroyo [Primary Care Provider] - Disposition Disposition (needs filled in before D/C Order can be placed): Home, Self Care Charges/Coding Visit Charges Inpatient E&M: 26364 Disch Hosp
[2021-11-14] MEDS: Famotidine 20 MG Tablet PO (10:57)
--- NOTE | 2021-11-14 14:01 | CASEMGMT ---
Social Work SW met w/pt, assisted pt in completing LW/Healthcare POA. Pt put his mother as Healthcare POA. SW gave pt originals and copies, and copies placed on chart. SW also gave pt information on Social Security Disability. No further needs, pt home today. EMILI Anthony
--- NOTE | 2021-11-14 14:58 | PHA.DC.MR ---
Pharmacy Service has performed discharge medication reconciliation for this patient. The patient's discharge medication list was reviewed for discrepancies and discrepancies were resolved. Home Medications aspirin 81 mg tablet,delayed release 81 mg PO BID [facility] 09/20/20 ascorbic acid (vitamin C) 500 mg capsule 500 mg PO DAILY SUPPLEMENT 12/18/20 multivitamin 1 tab PO DAILY SUPPLEMENT 12/18/20 omega-3 acid ethyl esters 1 gram capsule 1 cap PO DAILY SUPPLEMENT 12/18/20 levothyroxine 50 mcg tablet 50 mcg PO DAILY THYROID 11/12/21
[2021-11-16 09:30] LABS: Pathologist Comment/Body Fluid Reviewed
[2021-11-16 12:05] LABS: Amylase Body Fluid 16 U/L (.); pH, Body Fluid 11254 7.4 (Not Estab.)
== END 2021-11-14 14:40 | disposition home or self-care (01) | DRG 375 ==
LOC: ED 23:57 → MS3 11-12 00:11
PROVIDERS: Admitting Provider Family Medicine; Emergency Provider Emergency Medicine; Visit Provider Family Medicine
DX: C20 Malignant neoplasm of rectum (principal); R18.8 Other ascites; C78.6 Secondary malignant neoplasm of retroperitoneum and peritoneum; C78.00 Secondary malignant neoplasm of unspecified lung; C78.7 Secondary malignant neoplasm of liver and intrahepatic bile duct; Z68.41 Body mass index [BMI] 40.0-44.9, adult; E66.01 Morbid (severe) obesity due to excess calories; K76.9 Liver disease, unspecified; E03.9 Hypothyroidism, unspecified; G47.33 Obstructive sleep apnea (adult) (pediatric); Z92.21 Personal history of antineoplastic chemotherapy; Z79.82 Long term (current) use of aspirin; Z80.0 Family history of malignant neoplasm of digestive organs; Z86.718 Personal history of other venous thrombosis and embolism
CPT/HCPCS: 36415; 49083; 71275; 74177; 77012; 80048; 80053; 80076; 81002; 82040; 82150; 82945; 83615; 83690; 83735; 83986; 84100; 84157; 85025; 85610; 85730; 87070; 87075; 87205; 87428; 88108; 88172; 88305; 88313; 88341; 88342; 89050; 93005; 97802; 99156; 99251; 99285; J7040; P9047; Q9967; A4216; G0463

== ENCOUNTER 2021-11-22 11:13 | Emergency (ER) | payer OTHER, SELFPAY ==
[2021-11-22 11:14] VITALS: BP 127/93; PULSE 106; RESP 16; TEMP 36.6; O2SAT 97; BMI 40.6
--- NOTE | 2021-11-22 11:32 | RAD_ITS ---
STUDY: X-RAY CHEST REASON FOR EXAM: Male, 41 years old. Dyspnea TECHNIQUE: Single AP portable view of the chest. COMPARISON: Comparison is made with prior study dated 04/16/2021. FINDINGS: The previously seen left-sided portacatheter has been removed. Limited inspiration. Multiple bilateral pulmonary nodules as compared to prior study in keeping with metastasis. Normal size heart. Normal mediastinum and jarvis. Normal visualized pulmonary arteries. Normal visualized aortic arch and descending thoracic aorta. Normal visualized thoracic spine. Normal visualized ribs, clavicles, and shoulders. There is no demonstrated abnormality of the visualized soft tissue structures of the upper abdomen. RAD/Chest 1 View (Portable) IMPRESSION: Multiple bilateral pulmonary nodules in keeping with metastatic disease. This has progressed as compared to prior study. Electronically Signed: Lm Robb MD at 12:43 EDT ,
--- NOTE | 2021-11-22 11:35 | EX.ED.DYSGE1 ---
HPI <FROY Zhong - Last Filed: 11/22/21 17:23> History of Present Illness Chief Complaint: Abd Pain Narrative Narrative: Patient with history of metastatic colon cancer presents with increased abdominal swelling and generalized weakness. He was diagnosed with colon cancer 2 years ago that had already metastasized to the liver. He did chemo and radiation but has been on a 12+ week hiatus with chemo due to weakness. He sees Dr. Quintero. He was admitted on November 11 with worsening ascites and had paracentesis. He states the abdominal swelling is becoming worse again and he feels generally weak, nauseous, occasional vomiting with upper abdominal pain. This feels similar to previous. He is scheduled for paracentesis tomorrow afternoon here but does not feel he can make it. He is staying at his mom's house and has to go up a flight of steps to get to the bathroom and could not make it today. Also at baseline is dyspneic with ambulation and was previously diagnosed with bilateral pleural effusions. He has had a dry cough for the last month. No fever. Reports normal bladder and bowel movements. Right now he is just taking Tylenol and ibuprofen for pain. COUNT INCLUDES THE [facility] <FROY Zhong - Last Filed: 11/22/21 17:23> COUNT INCLUDES THE [facility] Medical History Colon cancer Diarrhea due to drug DVT (deep venous thrombosis) Encounter for education Liver cancer Neuropathy Non-smoker Sleep apnea Surgical wound, non healing Wears glasses Home Medications aspirin 81 mg tablet,delayed release 81 mg PO BID [facility] 09/20/20 [History Last Taken 11/11/21] ascorbic acid (vitamin C) 500 mg capsule 500 mg PO DAILY SUPPLEMENT 12/18/20 [History Last Taken 11/05/21] multivitamin 1 tab PO DAILY SUPPLEMENT 12/18/20 [History Last Taken 11/11/21] omega-3 acid ethyl esters 1 gram capsule 1 cap PO DAILY SUPPLEMENT 12/18/20 [History Last Taken 11/05/21] levothyroxine 50 mcg tablet 50 mcg PO DAILY THYROID 11/12/21 [History Last Taken 11/05/21] ondansetron 4 mg disintegrating tablet 4 mg PO Q6H #18 tabs 11/22/21 [Rx Last Taken Unknown] oxycodone-acetaminophen 5 mg-325 mg tablet (Percocet) 1 tab PO Q4H PRN pain 3 days #18 tabs 11/22/21 [Rx Last Taken Unknown] spironolactone 50 mg tablet (Aldactone) 50 mg PO BID #60 tabs 11/23/21 [Rx Last Taken Unknown] Allergy/AdvReac Type Severity Reaction Status Date / Time amoxapine Allergy Severe RASH Verified 11/22/21 11:16 amoxicillin Allergy Severe HEAT RASH Verified 11/22/21 11:16 Penicillins Allergy Rash Verified 11/22/21 11:16 Family History Father CVA (cerebral vascular accident) Other Heart disease Liver cancer Stomach cancer Surgical History History of vascular access device [place] teeth extracted Social History household members: none Smoking Status: Never smoker second hand exposure: No alcohol intake: current substance use type: does not use ROS <FROY Zhong - Last Filed: 11/22/21 17:23> ROS ED ROS Narrative Constitutional: Positive for malaise. Negative for fever, chills. Eyes: Negative for visual change. ENT: Negative for sore throat, ear pain, rhinorrhea. CVS: Negative for palpitations, chest pain, syncope. Respiratory: Negative for shortness of breath, cough, orthopnea. GI: Positive for nausea. Negative for abdominal pain, vomiting, diarrhea, constipation, melena, hematochezia. : Negative for dysuria, hematuria or frequency. Neuro: Negative for headache, motor/sensory dysfunction. Skin: Negative for rash, abscess, or wound. Musc: Negative for joint pain, swelling, trauma. Heme: Negative for easy bruising, bleeding, lymphadenopathy. EXAM <FROY Zhong - Last Filed: 11/22/21 17:23> Physical Exam Narrative Exam Narrative: CONST: Patient sitting in no acute distress. EYES: Normal inspection. NECK: Normal inspection. RESP: No respiratory distress, CTAB. CVS: Regular rate and rhythm, no murmur, no gallop. ABD: Significant abdominal distention with fluid wave, slightly firm from distention but no rigidity, nontender and no guarding or rebound. SKIN: Color normal, no rash, warm, dry, intact. EXTREMITIES: Normal appearance, no pedal edema. NEURO: Oriented x4. PSYCH: Normal affect. Const Vital Signs: 11/22/21 11:14 11/22/21 13:47 11/22/21 15:26 Temperature 97.9 F Temperature Source Temporal Pulse Rate 106 H Pulse Rate [1 (Initial Baseline)] 95 Pulse Rate [2] 89 Pulse Rate [3] 88 Pulse Rate [4] 89 Pulse Rate [5] 90 Pulse Rate [6] 88 Respiratory Rate 16 18 Respiratory Rate [1 (Initial Baseline)] 20 H Respiratory Rate [2] 20 H Respiratory Rate [3] 20 H Respiratory Rate [4] 20 H Respiratory Rate [5] 20 H Respiratory Rate [6] 20 H Blood Pressure 127/93 H 130/87 H Blood Pressure [1 (Initial Baseline)] 134/87 H Blood Pressure [2] 122/7 H Blood Pressure [3] 134/70 H Blood Pressure [4] 130/70 H Blood Pressure [5] 137/76 H Blood Pressure [6] 135/74 H Blood Pressure Mean 104 101 Pulse Ox 97 96 Oxygen Delivery Method Room Air Room Air Oxygen Delivery Method [1 (Initial Baseline)] Room Air Oxygen Delivery Method [2] Room Air Oxygen Delivery Method [3] Room Air Oxygen Delivery Method [4] Room Air Oxygen Delivery Method [5] Room Air Oxygen Delivery Method [6] Room Air 11/22/21 16:19 Temperature Temperature Source Pulse Rate Pulse Rate [1 (Initial Baseline)] Pulse Rate [2] Pulse Rate [3] Pulse Rate [4] Pulse Rate [5] Pulse Rate [6] Respiratory Rate 18 Respiratory Rate [1 (Initial Baseline)] Respiratory Rate [2] Respiratory Rate [3] Respiratory Rate [4] Respiratory Rate [5] Respiratory Rate [6] Blood Pressure 113/78 Blood Pressure [1 (Initial Baseline)] Blood Pressure [2] Blood Pressure [3] Blood Pressure [4] Blood Pressure [5] Blood Pressure [6] Blood Pressure Mean 89 Pulse Ox 96 Oxygen Delivery Method Room Air Oxygen Delivery Method [1 (Initial Baseline)] Oxygen Delivery Method [2] Oxygen Delivery Method [3] Oxygen Delivery Method [4] Oxygen Delivery Method [5] Oxygen Delivery Method [6] <Dr. Sarah Waldrop, DO - Last Filed: 11/25/21 02:48> Physical Exam Const Vital Signs: 11/22/21 11:14 11/22/21 13:47 11/22/21 15:26 Temperature 97.9 F Temperature Source Temporal Pulse Rate 106 H Pulse Rate [1 (Initial Baseline)] 95 Pulse Rate [2] 89 Pulse Rate [3] 88 Pulse Rate [4] 89 Pulse Rate [5] 90 Pulse Rate [6] 88 Respiratory Rate 16 18 Respiratory Rate [1 (Initial Baseline)] 20 H Respiratory Rate [2] 20 H Respiratory Rate [3] 20 H Respiratory Rate [4] 20 H Respiratory Rate [5] 20 H Respiratory Rate [6] 20 H Blood Pressure 127/93 H 130/87 H Blood Pressure [1 (Initial Baseline)] 134/87 H Blood Pressure [2] 122/7 H Blood Pressure [3] 134/70 H Blood Pressure [4] 130/70 H Blood Pressure [5] 137/76 H Blood Pressure [6] 135/74 H Blood Pressure Mean 104 101 Pulse Ox 97 96 Oxygen Delivery Method Room Air Room Air Oxygen Delivery Method [1 (Initial Baseline)] Room Air Oxygen Delivery Method [2] Room Air Oxygen Delivery Method [3] Room Air Oxygen Delivery Method [4] Room Air Oxygen Delivery Method [5] Room Air Oxygen Delivery Method [6] Room Air 11/22/21 16:19 Temperature Temperature Source Pulse Rate Pulse Rate [1 (Initial Baseline)] Pulse Rate [2] Pulse Rate [3] Pulse Rate [4] Pulse Rate [5] Pulse Rate [6] Respiratory Rate 18 Respiratory Rate [1 (Initial Baseline)] Respiratory Rate [2] Respiratory Rate [3] Respiratory Rate [4] Respiratory Rate [5] Respiratory Rate [6] Blood Pressure 113/78 Blood Pressure [1 (Initial Baseline)] Blood Pressure [2] Blood Pressure [3] Blood Pressure [4] Blood Pressure [5] Blood Pressure [6] Blood Pressure Mean 89 Pulse Ox 96 Oxygen Delivery Method Room Air Oxygen Delivery Method [1 (Initial Baseline)] Oxygen Delivery Method [2] Oxygen Delivery Method [3] Oxygen Delivery Method [4] Oxygen Delivery Method [5] Oxygen Delivery Method [6] MDM <FROY Zhong - Last Filed: 11/22/21 17:23> [facility] MDM Narrative Medical decision making narrative: Patient has history of metastatic colon cancer and presents with recurrent abdominal ascites and generalized weakness. He appears nontoxic. Vital signs unremarkable. Heart is regular and lungs are clear. He does have significant abdominal ascites but is nontender no peritoneal signs. No lower extremity edema. Labs show white count of 12.2, hemoglobin 11.8, high platelets of 815 which is slightly higher than previous likely secondary to cancer. He is hyponatremic at 130 and has mild SAMANTHA at 26/1.45. Patient's main complaint was discomfort from his significant abdominal swelling. He was scheduled for paracentesis tomorrow but does not feel like he can do his ADLs with the level swelling he is at now. IR was able to do his procedure today at 1:30 PM and drained off around 9 L. He was given IV albumin and analgesia here and feels improved. His oncologist, Dr. Quintero, spoke with him at bedside and agrees with her plan to discharge him home with Percocet and Zofran. He is prescribing spironolactone and the patient will follow-up in his office. Patient also given resources by social work for DME and information to file disability. He was discharged in stable condition. 1. Metastatic colon cancer 2. Abdominal ascites secondary to #1 3. Acute kidney injury Lab Data Labs: Laboratory Results - last 24 hr 11/22/21 11/22/21 11/22/21 11:45 11:45 11:45 WBC 12.2 H RBC 5.26 Hgb 11.8 L Hct 39.1 L MCV 74.3 L MCH 22.4 L MCHC 30.2 L RDW Std Deviation 45.6 H RDW Coeff of Walter 17.6 H Plt Count 815 H* MPV 9.2 Immature Gran % (Auto) 0.900 Neut % (Auto) 86.7 H Lymph % (Auto) 6.2 L [place] % (Auto) 5.8 Eos % (Auto) 0.2 Baso % (Auto) 0.2 Absolute Neuts (auto) 10.6 H Absolute Lymphs (auto) 0.75 L Nucleated RBC % 0 Differential Comment SCANNED Diff Path Review September foll PT 14.2 INR 1.1 Sodium 130 L Potassium 4.6 Chloride 95 L Carbon Dioxide 26.0 Anion Gap 9 BUN 26 H Creatinine 1.45 H Estim Creat Clear Calc 74.33 Est GFR (MDRD) Af Amer 69 Est GFR (MDRD) Non-Af 57 L BUN/Creatinine Ratio 17.9 Glucose 132 H Calcium 9.3 Total Bilirubin 0.60 AST 71 H ALT 99 H Alkaline Phosphatase 272 H Total Protein 7.3 Albumin 2.3 L Globulin 5.0 H Albumin/Globulin Ratio 0.5 L Radiography Diagnostic Testing: Clinical Impression(s) from Imaging Studies Chest X-Ray 11/22/21 11:32 IMPRESSION: Multiple bilateral pulmonary nodules in keeping with metastatic disease. This has progressed as compared to prior study. Electronically Signed: Lm Robb MD at 12:43 EDT , Paracentesis Ultrasound 11/22/21 11:44 IMPRESSION: Ultrasound guided paracentesis. Electronically Signed: Lm Robb MD at 15:31 EDT , ED attending interpretation of chest x-ray shows normal heart size, extensive bilateral pulmonary nodules consistent with metastatic disease. No acute infiltrate. <Dr. Sarah Waldrop, DO - Last Filed: 11/25/21 02:48> [facility] MDM Narrative Medical decision making narrative: Patient has history of metastatic colon cancer and presents with recurrent abdominal ascites and generalized weakness. He appears nontoxic. Vital signs unremarkable. Heart is regular and lungs are clear. He does have significant abdominal ascites but is nontender no peritoneal signs. No lower extremity edema. Labs show white count of 12.2, hemoglobin 11.8, high platelets of 815 which is slightly higher than previous likely secondary to cancer. He is hyponatremic at 130 and has mild SAMANTHA at 26/1.45. Patient's main complaint was discomfort from his significant abdominal swelling. He was scheduled for paracentesis tomorrow but does not feel like he can do his ADLs with the level swelling he is at now. IR was able to do his procedure today at 1:30 PM and drained off around 9 L. He was given IV albumin and analgesia here and feels improved. His oncologist, Dr. Quintero, spoke with him at bedside and agrees with her plan to discharge him home with Percocet and Zofran. He is prescribing spironolactone and the patient will follow-up in his office. Patient also given resources by social work for DME and information to file disability. He was discharged in stable condition. 1. Metastatic colon cancer 2. Abdominal ascites secondary to #1 3. Acute kidney injury I have personally performed a face to face assessment of the patient and have reviewed the SHARIF Note. I performed a substantive portion of the visit including all aspects of the following. My borden findings include: History is patient is a 41-year-old male with metastatic colon cancer and malignant ascites presenting with worsening abdominal distention with subsequent shortness of breath, generalized weakness and difficulty ambulating. He is due to have a paracentesis yesterday but cannot wait that long. He is especially concerned because he is staying at his significant other's house and the bathroom is on the second floor. He had episode of incontinence today because he cannot make it to the bathroom in time. He is not have any type of home health at this time. Exam is Obese male. Laying in bed in no acute distress. Normocephalic atraumatic. Moist mucosal membranes. Heart regular rate and rhythm. Lungs clear to auscultation. No crackles appreciated. Abdomen is distended with positive fluid wave. Mild diffuse tenderness to palpation. No peritoneal signs. No peripheral edema. No rash appreciated. No jaundice. ANO x3 with no focal neurologic deficits. Generally weak. Normal tone throughout. Chest x-ray interpreted by myself as well as radiology shows multiple metastatic cannonball lesions but no other acute process. Medical Decison Making patient is evaluated for increased abdominal distention, discomfort and decreased ability to do ADLs. Suspect is all secondary to his significant ascites. Paracentesis is performed in the emergency room and patient is reevaluated. He had approximately 9L taken off and is given albumin to prevent any associated hypotension. Patient feels much better and does feel that he is able to go home. He is evaluated by his oncologist in the emergency room. Patient be started on spironolactone. He will follow-up outpatient closely with oncology. Case management did evaluate the patient as well to see if we can help him further with outpatient resources such as a bedside commode or home health. Patient's creatinine is mildly elevated however he is not given fluids because this will likely cause worsening ascites. This will be monitored outpatient. Patient is offered admission but he states he would like to go home. Patient is given return precautions as well as a prescription for pain medication as well as Zofran to help with his symptoms. Other additions or changes: [None] Lab Data Labs: Laboratory Results - last 24 hr 11/22/21 11/22/21 11/22/21 11:45 11:45 11:45 WBC 12.2 H RBC 5.26 Hgb 11.8 L Hct 39.1 L MCV 74.3 L MCH 22.4 L MCHC 30.2 L RDW Std Deviation 45.6 H RDW Coeff of Walter 17.6 H Plt Count 815 H* MPV 9.2 Immature Gran % (Auto) 0.900 Neut % (Auto) 86.7 H Lymph % (Auto) 6.2 L [place] % (Auto) 5.8 Eos % (Auto) 0.2 Baso % (Auto) 0.2 Absolute Neuts (auto) 10.6 H Absolute Lymphs (auto) 0.75 L Nucleated RBC % 0 Differential Comment SCANNED Diff Path Review September foll PT 14.2 INR 1.1 Sodium 130 L Potassium 4.6 Chloride 95 L Carbon Dioxide 26.0 Anion Gap 9 BUN 26 H Creatinine 1.45 H Estim Creat Clear Calc 74.33 Est GFR (MDRD) Af Amer 69 Est GFR (MDRD) Non-Af 57 L BUN/Creatinine Ratio 17.9 Glucose 132 H Calcium 9.3 Total Bilirubin 0.60 AST 71 H ALT 99 H Alkaline Phosphatase 272 H Total Protein 7.3 Albumin 2.3 L Globulin 5.0 H Albumin/Globulin Ratio 0.5 L Radiography Diagnostic Testing: Clinical Impression(s) from Imaging Studies Chest X-Ray 11/22/21 11:32 IMPRESSION: Multiple bilateral pulmonary nodules in keeping with metastatic disease. This has progressed as compared to prior study. Electronically Signed: Lm Robb MD at 12:43 EDT , Paracentesis Ultrasound 11/22/21 11:44 IMPRESSION: Ultrasound guided paracentesis. Electronically Signed: Lm Robb MD at 15:31 EDT , Discharge Plan Triage Chief Complaint: Abd Pain ED Midlevel Provider: Maddie Guzman ED Provider: Sarah Waldrop Dx/Rx/DC Orders Clinical Impression: Abdominal ascites, Metastatic adenocarcinoma Instructions: ED Ascites, Cancer Overview Prescriptions: New oxycodone-acetaminophen [Percocet] 5-325 mg tablet 1 tab PO Q4H PRN (Reason: pain) 3 Days Qty: 18 0RF ondansetron 4 mg tablet,disintegrating 4 mg PO Q6H Qty: 18 0RF No Action ascorbic acid (vitamin C) 500 mg capsule 500 mg PO DAILY multivitamin Tablet 1 tab PO DAILY omega-3 acid ethyl esters 1 gram capsule 1 cap PO DAILY aspirin 81 mg tablet,delayed release (DR/EC) 81 mg PO BID levothyroxine 50 mcg tablet 50 mcg PO DAILY spironolactone [Aldactone] 50 mg tablet 50 mg PO BID Qty: 60 0RF Primary Care Provider: Breana Arroyo Referrals: Breana Arroyo [Primary Care Provider] - Activity Restrictions/Additional Instructions: I prescribed Percocet for pain and Zofran to take as needed for nausea and vomiting. Dr. Quintero is also prescribing a medicine called spironolactone to help with the fluid buildup. Please follow-up with his office. Disposition Disposition: Home, Self Care Discharge Date/Time: 11/22/21 20:42
--- NOTE | 2021-11-22 11:44 | US_ITS ---
PROCEDURE: Ultrasound guided paracentesis. DATE OF EXAMINATION: 11/22/2021. INDICATION: Male, 41 years old. Ascites. PHYSICIAN: Lm Robb M.D. TECHNIQUE: The risks, benefits, and alternatives to the procedure were explained to the patient. The specific risks of bleeding, infection, and damage to bowel were detailed and accepted. Witnessed informed consent was obtained. The abdomen was ultrasonographically surveyed. An appropriate pocket of fluid was identified at the right lower quadrant. The skin were cleaned and prepped in the usual sterile fashion. Using ultrasound guidance, the peritoneal cavity was accessed with a 5-[place] paracentesis needle/catheter system. The trocar was removed. A total of 8640 ml of tarik-colored fluid were removed from the peritoneal cavity. 100 mL sample was sent to the laboratory for analysis. The catheter was removed and a sterile dressing was applied. The procedure was well tolerated. US/Paracentesis with US IMPRESSION: Ultrasound guided paracentesis. Electronically Signed: Lm Robb MD at 15:31 EDT ,
[2021-11-22] MEDS: Ondansetron 4 MG/2 ML Vial IV (11:54)
[2021-11-22] MEDS: oxyCODONE 5 MG Tablet PO (11:54)
[2021-11-22 12:04] LABS: Absolute Lymphocyte Count 0.75 X10^3/uL (0.83-4.51); Absolute Neutrophil Count 10.6 X10^3/uL (2.0-7.7); Basophil# 0.03 X10^3/uL; Basophil% 0.2 % (0-1); Eosinophil# 0.03 X10^3/uL; Eosinophils% 0.2 % (0-5); Hematocrit 39.1 % (40-54); Hemoglobin 11.8 g/dL (13.0-16.5); Lymphocyte # 0.75 X10^3/ul (0.83-4.51); Lymphocyte % 6.2 % (19-41); Mean Corp Hgb Conc 30.2 g/dL (32-36); Mean Corpuscular Hgb 22.4 pg (27.0-32.0); Mean Corpuscular Volume 74.3 fL (80-94); Mean Platelet Vol. 9.2 fl (6.2-12.0); Monocyte# 0.71 X10^3/uL; Monocyte% 5.8 % (0-10); NRBC Flagged by Analyzer 0 % (0-5); Neutrophil # 10.56 X10^3/uL (2.7-7.7); Neutrophil % 86.7 % (47-70); POSITIVE COUNT YES; RBC Distribution Width CV 17.6 % (11.6-14.6); RBC Distribution Width SD 45.6 fl (35.1-43.9); Red Blood Count 5.26 M/mm3 (4.6-6.2); White Blood Count 12.2 K/mm3 (4.4-11.0)
--- NOTE | 2021-11-22 12:08 | CM.ED ---
Addendum entered by Sharon Cason 11/22/21 12:59: SW met with pt. Pt states that he needs to get on disability. SW had reviewed chart and the last time pt was at [facility], Roselyn MOCK provided pt with information on Social Security Disability. Pt confirms that he received the information. SW encouraged pt to follow up with Disability. SW also spoke with pt about DME companies and provided pt with list of DME companies should he need DME. Pt states understanding. SW provided pt with additional resources including HHC agencies, Private Duty aides and handrails/Ramp information. Original Note: Social Work Note Reason for Referral: Community Resources SW received referral for Community Resources. SW to meet with pt to provide resources. Sharon Cason RETAIL CUSTODIAL ASSOCIATE, [employer]
[2021-11-22 12:13] LABS: Differential Indicated SCAN CRITERIA MET; Platelet Count 815 K/mm3 (150-450)
[2021-11-22 12:20] LABS: International Normalized Ratio 1.1; Prothrombin Time (Protime)PT. 14.2 SECONDS (11.7-14.9)
[2021-11-22 12:27] LABS: ALB/GLOB Ratio 0.5 RATIO (0.9-2.4); AST(SGOT) 71 U/L (15-37); Alanine Aminotransfer ALT/SGPT 99 U/L (16-61); Albumin, Serum 2.3 g/dL (3.2-5.0); Alkaline Phosphatase 272 U/L (45-117); Anion Gap 9 (5-15); BUN 26 mg/dL (7-18); BUN/Creat Ratio 17.9 RATIO (10-20); Calcium,Total 9.3 mg/dL (8.5-10.1); Chloride 95 mmol/L (98-107); Creatinine, Serum 1.45 mg/dL (0.70-1.30); EST Glomerular Filtration Rate 57 mL/min (>60); Est Glom Filt Rate - Afr Amer 69 mL/min (>60); Estimated Creatinine Clearance 74.33 ml/min; Glucose 132 mg/dL (74-106); Potassium 4.6 mmol/L (3.5-5.1); Protein, Total 7.3 g/dL (6.4-8.2); Sodium Level 130 mmol/L (136-145)
[2021-11-22 12:28] LABS: Differential Comment SCANNED
[2021-11-22 13:47] VITALS: BP 122/7; BP 130/70; BP 134/70; BP 134/87; BP 135/74; BP 137/76; PULSE 88; PULSE 89; PULSE 90; PULSE 95; RESP 20; O2SAT 93; O2SAT 94; O2SAT 95
--- NOTE | 2021-11-22 14:05 | FLU_PTH ---
PATIENT: JESENIA LARSEN LOC: ED U#:[id number] AGE/SX: 41/M ROOM: RE11/22/[address]: Dr. Sarah Waldrop DO : 1980 BED: DIS: 11/22/2021 SPEC #: [id number] RECD: 11/22/21 15:00 STATUS: NAM MOSHE #: [id number] SUSIE: 11/22/21 14:[address]: Sarah Waldrop DEPT: CYTOLOGY RECD BY: Jose Miles ENTERED: 11/23/21 08:00 SP TYPE: Fluid OTHR DR: Breana Arroyo Tissues: PARACENTESIS FLUID Procedures: Special Stain Group II Surgery Specimen Level IV Cytospin Fluid HEADER OPERATION: Paracentesis PRE-OP DIAGNOSIS: Ascites TISSUE SUBMITTED: Paracentesis fluid for cytology DIAGNOSIS CYTOLOGY Paracentesis fluid for cytology (cytospin and cell block): Negative for malignant cells. AM:lori 11/26/2021 CYTOLOGY STUDY Slides are reviewed. CYTOLOGY GROSS Received is 50 ml of cloudy tarik fluid labeled with the patient's name and and designated per the requisition as paracentesis. Submitted for cytology preparation including cell block. / lori 11/23/2021 TC:5 CPT: 76367, 09172
--- NOTE | 2021-11-22 14:34 | ED.RN ---
PT REMAINS OUT FOR PROCEDURE
[2021-11-22] MEDS: Lidocaine 2% (5ml sdv) 5 ML VIAL.MPF INFILT (15:18)
[2021-11-22 15:26] VITALS: BP 130/87; RESP 18; O2SAT 96
[2021-11-22 16:19] VITALS: BP 113/78; RESP 18; O2SAT 96
--- NOTE | 2021-11-22 17:10 | NURSING ---
called rx for albumin
[2021-11-22] MEDS: Albumin Human 25% (50 mL) 12.5 GM/50 ML IV.SOLN IV (18:08)
[2021-11-22 18:09] VITALS: BP 139/89
[2021-11-22] MEDS: Albumin Human 25% (100 mL) 25 GM/100 ML BAG IV (18:51)
[2021-11-22 20:41] VITALS: BP 141/71; PULSE 70; RESP 15; O2SAT 98
[2021-11-23 11:15] LABS: Pathologist Review Reviewed
== END 2021-11-22 20:42 | disposition home or self-care (01) ==
PROVIDERS: Physician Assistant; Emergency Provider Emergency Medicine; Visit Provider Emergency Medicine
DX: C18.9 Malignant neoplasm of colon, unspecified (principal); C79.9 Secondary malignant neoplasm of unspecified site; N17.9 Acute kidney failure, unspecified; R18.8 Other ascites; G47.30 Sleep apnea, unspecified; Z86.718 Personal history of other venous thrombosis and embolism
CPT/HCPCS: 49083; 71045; 80053; 85025; 85610; 88108; 88305; 88313; 96365; 96366; 96375; 99283; P9047; A4216; J2405

== ENCOUNTER 2021-11-28 15:03 | Inpatient (IN) | payer SELFPAY ==
[2021-11-28 15:05] VITALS: BP 113/79; PULSE 107; RESP 16; TEMP 36.8; O2SAT 97; BMI 40.6
--- NOTE | 2021-11-28 15:41 | CT_ITS ---
EXAM: CT ABDOMEN AND PELVIS WITH INTRAVENOUS CONTRAST CLINICAL INDICATION: abd pain TECHNIQUE: Helically acquired images were obtained of the abdomen and pelvis with intravenous contrast. This CT exam was performed using one or more of the following dose reduction techniques: automated exposure control, adjustment of the mA and/or kV according to patient size, and/or use of iterative reconstruction technique. This report was created using [employer] report generation technology. CONTRAST: IV 100mL Isovue-300 COMPARISON: CT Abdomen Pelvis dated 11/11/2021 FINDINGS: LOWER THORAX: Increasing size of the left pleural effusion. Multiple bilateral pulmonary nodules again noted. ABDOMEN: LIVER: No change in the metastatic lesions of the liver. GALLBLADDER AND BILE DUCTS: Unremarkable. No calcified gallstones. No gallbladder distention or wall edema. No intra- or extrahepatic biliary ductal dilation. PANCREAS: Unremarkable. No focal cystic or solid mass. SPLEEN: Unremarkable. Normal size without focal cystic or solid mass. ADRENALS: Unremarkable. No nodules. KIDNEYS AND URETERS: The left parapelvic renal cysts again seen. No follow-up indicated. No hydronephrosis. STOMACH AND BOWEL: Nonspecific localized wall thickening of the rectum again noted. PELVIS: APPENDIX: No evidence of acute appendicitis. BLADDER: Urinary bladder is decompressed. REPRODUCTIVE: Unremarkable as visualized. No mass. ABDOMEN and PELVIS: INTRAPERITONEAL SPACE: Moderate volume ascites again seen. The extensive omental caking again noted consistent with peritoneal carcinomatosis. No free air. BONES/JOINTS: Unremarkable. No suspicious lytic or blastic abnormality. SOFT TISSUES: Unremarkable. No discrete abdominal or pelvic wall hernia. VASCULATURE: Unremarkable. Abdominal aorta is non-dilated. LYMPH NODES: Unremarkable. No enlarged lymph nodes. CT/Abdomen/Pelvis W IV Cont ONLY IMPRESSION: 1. Increasing size of the left pleural effusion. 2. No significant change in the extensive metastatic disease involving the lungs, liver and peritoneum. 3. Stable moderate volume ascites. Electronically Signed: Ajay Menjivar MD at 16:35 EDT ,
--- NOTE | 2021-11-28 15:44 | EX.ED.DYSGE1 ---
HPI History of Present Illness Chief Complaint: Fatigue Informant: patient and family Onset/Context/Timing Onset: Days Narrative Narrative: Patient presents secondary to increased fatigue and weakness. He has a history of rectal cancer with mets to the liver. He is not currently on chemotherapy or radiation, but is scheduled to start a new chemo next week. He last had a paracentesis performed 6 days ago. Patient states that over the past week he has had increasing fatigue and abdominal distention. He states it feels different than when he has increased ascites. He has not had fever or chills. He has had a chronic cough that has not significantly changed from baseline. [facility] Medical History Colon cancer Diarrhea due to drug DVT (deep venous thrombosis) Encounter for education Liver cancer Neuropathy Non-smoker Sleep apnea Surgical wound, non healing Wears glasses Home Medications aspirin 81 mg tablet,delayed release 81 mg PO BID [facility] 09/20/20 [History Last Taken 11/11/21] ascorbic acid (vitamin C) 500 mg capsule 500 mg PO DAILY SUPPLEMENT 12/18/20 [History Last Taken 11/05/21] multivitamin 1 tab PO DAILY SUPPLEMENT 12/18/20 [History Last Taken 11/11/21] omega-3 acid ethyl esters 1 gram capsule 1 cap PO DAILY SUPPLEMENT 12/18/20 [History Last Taken 11/05/21] levothyroxine 50 mcg tablet 50 mcg PO DAILY THYROID 11/12/21 [History Last Taken 11/05/21] ondansetron 4 mg disintegrating tablet 4 mg PO Q6H #18 tabs 11/22/21 [Rx Last Taken Unknown] oxycodone-acetaminophen 5 mg-325 mg tablet (Percocet) 1 tab PO Q4H PRN pain 3 days #18 tabs 11/22/21 [Rx Last Taken Unknown] spironolactone 50 mg tablet (Aldactone) 50 mg PO BID #60 tabs 11/23/21 [Rx Last Taken Unknown] Allergy/AdvReac Type Severity Reaction Status Date / Time amoxapine Allergy Severe RASH Verified 11/28/21 15:07 amoxicillin Allergy Severe HEAT RASH Verified 11/28/21 15:07 Penicillins Allergy Rash Verified 11/28/21 15:07 Family History Father CVA (cerebral vascular accident) Other Heart disease Liver cancer Stomach cancer Surgical History History of vascular access device [place] teeth extracted Social History household members: none Smoking Status: Never smoker second hand exposure: No alcohol intake: current substance use type: does not use ROS ROS ED Constitutional Constitutional ED: Denies chills or fever(s) Eyes Eyes: Denies change in vision or discharge from eye(s) ENT ENT ED: Denies discharge from eye(s), rhinorrhea or sore throat Cardiovascular Cardiovascular: Denies chest pain or palpitations Respiratory/Chest Respiratory/Chest: Denies cough or dyspnea Gastrointestinal Gastrointestinal: Reports abdominal pain and vomiting; Denies diarrhea or nausea Genitourinary Genitourinary ED: Denies difficulty urinating or dysuria Musculoskeletal Musculoskeletal: Denies back pain or extremity pain Integumentary Denies Abrasions or rash Neurologic Neurologic: Reports weakness; Denies headache(s) Allergic/Immunologic Allergic/Immunologic ED: Denies lip swelling or urticaria EXAM Physical Exam Const Vital Signs: 11/28/21 15:05 11/28/21 15:16 11/28/21 16:58 Temperature 98.2 F Temperature Source Oral Pulse Rate 107 H 87 Respiratory Rate 16 16 Respiratory Pattern Normal Blood Pressure 113/79 119/81 H Blood Pressure Mean 90 93 Pulse Ox 97 99 Oxygen Delivery Method Room Air Room Air Positive well nourished and well developed General Appearance ED: well developed HEENT Reports normocephalic and head/scalp atraumatic Eyes PERRL and EOMs intact bilaterally Neck supple Chest Wall inspection of chest normal and palpation of chest normal Resp normal respiratory effort and clear to auscultation bilaterally Cardio regular rate and regular rhythm GI GI Narrative: Distended Auscultation: hypoactive bowel sounds Palpation: soft Extremity normal to inspection Neuro oriented x3 Neuro Narrative: No focal neurologic deficits. Sensorium / Orientation: alert Psych mental status grossly normal Skin no rashes or lesions noted MDM MDM MDM Narrative Medical decision making narrative: Patient given IV fluids along with morphine and Zofran for pain and nausea. Lab work, urinalysis, COVID test obtained. CT abdomen and pelvis with IV contrast obtained. Lab Data Attestation: I reviewed the patient's lab results. Labs: Laboratory Results - last 24 hr 11/28/21 11/28/21 11/28/21 16:04 16:04 16:40 WBC 13.0 H RBC 5.14 Hgb 11.6 L Hct 37.8 L MCV 73.5 L MCH 22.6 L MCHC 30.7 L RDW Std Deviation 45.6 H RDW Coeff of Walter 18.1 H Plt Count 706 H MPV 8.9 Immature Gran % (Auto) 1.500 H Neut % (Auto) 84.2 H Lymph % (Auto) 6.2 L [place] % (Auto) 7.0 Eos % (Auto) 0.8 Baso % (Auto) 0.3 Absolute Neuts (auto) 10.9 H Absolute Lymphs (auto) 0.81 L Nucleated RBC % 0 Sodium 127 L Potassium 4.8 Chloride 92 L Carbon Dioxide 23.0 Anion Gap 12 BUN 39 H Creatinine 1.96 H Estim Creat Clear Calc 54.99 Est GFR (MDRD) Af Amer 49 L Est GFR (MDRD) Non-Af 40 L BUN/Creatinine Ratio 19.9 Glucose 138 H Calcium 9.2 Total Bilirubin 0.50 Direct Bilirubin 0.19 AST 83 H ALT 92 H Alkaline Phosphatase 459 H Total Protein 7.0 Albumin 2.1 L Globulin 4.9 H Lipase 278 Urine Color Yellow Urine Clarity Sl. Cloudy Urine pH 5.0 Ur Specific [place] 1.020 Urine Protein 30 H Urine Glucose (UA) Normal Urine Ketones Negative Urine Occult Blood 10 H Urine Nitrite Negative Urine Bilirubin Negative Urine Urobilinogen 1 H Ur Leukocyte Esterase 25 H Urine RBC 0-5 SEEN Urine WBC 0-5 SEEN Ur Squamous Epith Cells 0-5 SEEN Urine Bacteria 1+ Hyaline Casts 10-25 SEEN Fine Granular Casts 25-50 SEEN Coarse Granular Casts 10-25 SEEN Urine Mucus 0 SEEN Radiography Diagnostic Testing: Clinical Impression(s) from Imaging Studies Abdomen/Pelvis CT 11/28/21 15:41 IMPRESSION: 1. Increasing size of the left pleural effusion. 2. No significant change in the extensive metastatic disease involving the lungs, liver and peritoneum. 3. Stable moderate volume ascites. Electronically Signed: Ajay Menjivar MD at 16:35 EDT , Treatment and Re-Evaluation Narrative: Patient's white blood cell count slightly elevated at 13. Chemistry studies significant for sodium low at 127 with a BUN of 39 and a creatinine of 1.96. This has been climbing over his last several laboratory evaluations. LFTs reveal chronic changes consistent with his prior values. Urinalysis shows no acute infection. CT scan reveals increasing left pleural effusion. There is no significant change in the metastatic disease and a moderate volume ascites is noted. At this time patient states he is having trouble getting around at home. I will speak with hospitalist regarding hydration and monitoring renal function as well as potential repeat paracentesis if needed. Discharge Plan Triage Chief Complaint: Fatigue ED Provider: Luz Jewell Dx/Rx/DC Orders Clinical Impression: Rectal cancer, Ascites, Pleural effusion, Weakness Prescriptions: No Action ascorbic acid (vitamin C) 500 mg capsule 500 mg PO DAILY multivitamin Tablet 1 tab PO DAILY omega-3 acid ethyl esters 1 gram capsule 1 cap PO DAILY aspirin 81 mg tablet,delayed release (DR/EC) 81 mg PO BID levothyroxine 50 mcg tablet 50 mcg PO DAILY oxycodone-acetaminophen [Percocet] 5-325 mg tablet 1 tab PO Q4H PRN (Reason: pain) 3 Days Qty: 18 0RF ondansetron 4 mg tablet,disintegrating 4 mg PO Q6H Qty: 18 0RF spironolactone [Aldactone] 50 mg tablet 50 mg PO BID Qty: 60 0RF Primary Care Provider: Breana Arroyo Referrals: Breana Arroyo [Primary Care Provider] - Disposition Disposition: Acute Care Hospital [facility] [place]
[2021-11-28] MEDS: Morphine 4 MG/ML Syringe IV (16:06)
[2021-11-28] MEDS: 0.9% Normal Saline 1,000 ML 150 ML IV (16:06)
[2021-11-28] MEDS: Ondansetron 4 MG/2 ML Vial IV (16:06)
[2021-11-28 16:10] LABS: Absolute Lymphocyte Count 0.81 X10^3/uL (0.83-4.51); Absolute Neutrophil Count 10.9 X10^3/uL (2.0-7.7); Basophil# 0.04 X10^3/uL; Basophil% 0.3 % (0-1); Eosinophil# 0.11 X10^3/uL; Eosinophils% 0.8 % (0-5); Hematocrit 37.8 % (40-54); Hemoglobin 11.6 g/dL (13.0-16.5); Lymphocyte # 0.81 X10^3/ul (0.83-4.51); Lymphocyte % 6.2 % (19-41); Mean Corp Hgb Conc 30.7 g/dL (32-36); Mean Corpuscular Hgb 22.6 pg (27.0-32.0); Mean Corpuscular Volume 73.5 fL (80-94); Mean Platelet Vol. 8.9 fl (6.2-12.0); Monocyte# 0.91 X10^3/uL; NRBC Flagged by Analyzer 0 % (0-5); Neutrophil # 10.91 X10^3/uL (2.7-7.7); Neutrophil % 84.2 % (47-70); Platelet Count 706 K/mm3 (150-450); RBC Distribution Width CV 18.1 % (11.6-14.6); RBC Distribution Width SD 45.6 fl (35.1-43.9); Red Blood Count 5.14 M/mm3 (4.6-6.2)
[2021-11-28 16:26] LABS: AST(SGOT) 83 U/L (15-37); Alanine Aminotransfer ALT/SGPT 92 U/L (16-61); Albumin, Serum 2.1 g/dL (3.2-5.0); Alkaline Phosphatase 459 U/L (45-117); Anion Gap 12 (5-15); BUN 39 mg/dL (7-18); BUN/Creat Ratio 19.9 RATIO (10-20); Bilirubin, Direct 0.19 mg/dL (0.00-0.30); Calcium,Total 9.2 mg/dL (8.5-10.1); Chloride 92 mmol/L (98-107); Creatinine, Serum 1.96 mg/dL (0.70-1.30); EST Glomerular Filtration Rate 40 mL/min (>60); Est Glom Filt Rate - Afr Amer 49 mL/min (>60); Estimated Creatinine Clearance 54.99 ml/min; Globulin 4.9 g/dL (2.2-4.2); Glucose 138 mg/dL (74-106); Lipase 278 U/L (73-393); Potassium 4.8 mmol/L (3.5-5.1); Sodium Level 127 mmol/L (136-145)
[2021-11-28 16:57] LABS: Mucous, Urine 0 SEEN /hpf (<or=2+)
[2021-11-28 16:58] VITALS: BP 119/81; PULSE 87; RESP 16; O2SAT 99
[2021-11-28 17:01] LABS: Color, Urine Yellow (Yellow); Glucose, Dipstick Normal (Normal); Ketone-Dipstick Negative (Negative); Leukocyte Esterase-Dipstick 25 /ul (Negative); Nitrite-Dipstick Negative (Negative); Occult Blood-Urine 10 /ul (Negative); Protein-Dipstick 30 mg/dl (Negative); Urine Bilirubin Dipstick Negative (Negative); Urine Clarity Sl. Cloudy (Clear); Urine Urobilinogen 1 mg/dl (Normal)
[2021-11-28 17:29] LABS: Red Blood Cells-Urine 0-5 SEEN /hpf (0-5); White Blood Cells 0-5 SEEN /hpf (0-5)
[2021-11-28 17:30] LABS: Bacteria 1+ /hpf (None Seen); Squamous Epithelial Cells - UA 0-5 SEEN /hpf (0-5)
[2021-11-28 17:31] LABS: Coarse Granular Cast 10-25 SEEN /lpf (0-5 /lpf); Fine Granular Cast- Urine 25-50 SEEN /lpf (0-5)
[2021-11-28 17:32] LABS: Hyaline Cast 10-25 SEEN /lpf (0-5)
[2021-11-28 17:55] VITALS: BP 129/79; PULSE 87; RESP 14; TEMP 36.1; O2SAT 97
[2021-11-28 18:08] VITALS: BP 129/79; PULSE 87; RESP 14; TEMP 36.1; O2SAT 97
--- NOTE | 2021-11-28 18:16 | HP.PCM.HOS_ITS ---
Documented by User: Janell Reid NP, SENIOR BIOINFORMATICS SPECIALIST-C 11/28/21 18:41 HPI - General General Date of Admission: 11/28/21 Date of Service: 11/28/21 Chief Complaint: Weakness, abdominal swelling. HPI Narrative JESENIA LARSEN, is a 41 M who presents to the Emergency Room due to weakness and increased abdominal swelling. Patient has a past medical history of metastatic rectal cancer with mets to liver and lung. Patient states he underwent paracentesis as outpatient last and since then has become increasingly more weak. He is currently living with his mother who is at bedside. His mom states there is no bathroom on the main floor and patient has had difficulty going up steps due to significant weakness. Patient denies falls at home. He denies fever, chills. Reports some nausea, vomiting. He is states he has been able to intake adequate food and water however. He denies known weight loss. He reports increased abdominal swelling. Denies significant abdominal pain however reports soreness. Patient reports he was to begin oral chemo tomorrow. He follows with Dr. Quintero. His other past medical history includes hypothyroidism, LAWANDA and obesity. [facility] Medical History Colon cancer Diarrhea due to drug DVT (deep venous thrombosis) Encounter for education Liver cancer Neuropathy Non-smoker Sleep apnea Surgical wound, non healing Wears glasses Home Medications aspirin 81 mg tablet,delayed release 81 mg PO BID HEART HEALTH 09/20/20 [History Last Taken 11/11/21] ascorbic acid (vitamin C) 500 mg capsule 500 mg PO DAILY SUPPLEMENT 12/18/20 [History Last Taken 11/05/21] multivitamin 1 tab PO DAILY SUPPLEMENT 12/18/20 [History Last Taken 11/11/21] omega-3 acid ethyl esters 1 gram capsule 1 cap PO DAILY SUPPLEMENT 12/18/20 [History Last Taken 11/05/21] levothyroxine 50 mcg tablet 50 mcg PO DAILY THYROID 11/12/21 [History Last Taken 11/05/21] ondansetron 4 mg disintegrating tablet 4 mg PO Q6H #18 tabs 11/22/21 [Rx Last Taken Unknown] oxycodone-acetaminophen 5 mg-325 mg tablet (Percocet) 1 tab PO Q4H PRN pain 3 days #18 tabs 11/22/21 [Rx Last Taken Unknown] spironolactone 50 mg tablet (Aldactone) 50 mg PO BID #60 tabs 11/23/21 [Rx Last Taken Unknown] Allergy/AdvReac Type Severity Reaction Status Date / Time amoxapine Allergy Severe RASH Verified 11/28/21 15:07 amoxicillin Allergy Severe HEAT RASH Verified 11/28/21 15:07 Penicillins Allergy Rash Verified 11/28/21 15:07 Family History Father CVA (cerebral vascular accident) Mother No cardiac disease Other Heart disease Liver cancer Stomach cancer Surgical History History of vascular access device Geraldine teeth extracted Social History household members: other details: currently living with mother Smoking Status: Never smoker second hand exposure: No alcohol intake: never substance use type: does not use ROS Constitutional Constitutional: Reports fatigue and weakness; Denies change in weight, chills or fever(s) Cardiovascular Cardiovascular: Denies chest pain, edema, lightheadedness, palpitations or syncope Respiratory/Chest Respiratory/Chest: Denies cough, dyspnea, productive cough, shortness of breath at rest, shortness of breath with exertion or wheezing Gastrointestinal Gastrointestinal: Reports other Details: Abdominal tenderness and swelling ; Denies constipation, diarrhea, nausea or vomiting Genitourinary Genitourinary: Denies burning urination, difficulty urinating, dysuria, hematuria, urinary frequency, urinary incontinence or urinary urgency Musculoskeletal Musculoskeletal: Reports muscle weakness; Denies back pain or joint pain Integumentary Integumentary: Denies erythema, lesions, rash or wounds Neurologic Neurologic: Denies abnormal speech, confusion, dizziness, focal weakness, numbness, paresthesias, seizure-like activity or syncope Psychiatric Psychiatric: Denies anxiety or depression Hematologic/Lymphatic Hematologic/Lymphatic: Denies anemia, easy bleeding or easy bruising Allergic/Immunologic Allergic/Immunologic: Denies hives or asthma Vital Signs Vital Signs Vital Signs: 11/28/21 15:05 11/28/21 15:16 11/28/21 16:58 Temperature 98.2 F Temperature Source Oral Pulse Rate 107 H 87 Respiratory Rate 16 16 Respiratory Pattern Normal Blood Pressure 113/79 119/81 H Blood Pressure Mean 90 93 Pulse Ox 97 99 Oxygen Delivery Method Room Air Room Air 11/28/21 17:55 11/28/21 18:08 Temperature 96.9 F L 96.9 F L Temperature Source Temporal Temporal Pulse Rate 87 87 Respiratory Rate 14 14 Respiratory Pattern Blood Pressure 129/79 H 129/79 H Blood Pressure Mean 95 95 Pulse Ox 97 97 Oxygen Delivery Method Room Air Room Air Weight Weight: 300 lb Body Mass Index (BMI) 40.6 Physical Exam Const alert and oriented x3 Constitutional Narrative: Appears fatigued HEENT normocephalic Mouth: dry mucous membranes Eyes PERRL, EOMs intact bilaterally and conjunctivae normal Neck no lymphadenopathy Resp clear to auscultation bilaterally Auscultation: diminished lung sounds Cardio regular rate, regular rhythm and no murmurs Peripheral Pulses: pulses 2+ throughout GI normal to inspection, nondistended, normoactive bowel sounds GI Narrative: Distended, generalized tenderness Extremity normal to inspection Skin no rashes or lesions noted Lesions: no lesions Rashes: no rashes Trauma: no lacerations or abrasions Neuro CN's II-XII intact bilaterally, no focal motor deficits, no sensory deficits noted and deep tendon reflexes 2+ bilaterally Psych Mood & Affect: flat affect Results Lab / Micro Data Result Diagrams: 11/28/21 16:04 11/28/21 16:04 Labs: Laboratory Results - last 24 hr 11/28/21 16:04: WBC 13.0 H, RBC 5.14, Hgb 11.6 L, Hct 37.8 L, MCV 73.5 L, MCH 22.6 L, MCHC 30.7 L, RDW Std Deviation 45.6 H, RDW Coeff of Walter 18.1 H, Plt Count 706 H, MPV 8.9, Immature Gran % (Auto) 1.500 H, Neut % (Auto) 84.2 H, Lymph % (Auto) 6.2 L, [place] % (Auto) 7.0, Eos % (Auto) 0.8, Baso % (Auto) 0.3, Absolute Neuts (auto) 10.9 H, Absolute Lymphs (auto) 0.81 L, Nucleated RBC % 0 11/28/21 16:04: Sodium 127 L, Potassium 4.8, Chloride 92 L, Carbon Dioxide 23.0, Anion Gap 12, BUN 39 H, Creatinine 1.96 H, Estim Creat Clear Calc 54.99, Est GFR (MDRD) Af Amer 49 L, Est GFR (MDRD) Non-Af 40 L, BUN/Creatinine Ratio 19.9, Glucose 138 H, Calcium 9.2, Total Bilirubin 0.50, Direct Bilirubin 0.19, AST 83 H, ALT 92 H, Alkaline Phosphatase 459 H, Total Protein 7.0, Albumin 2.1 L, Glob ulin 4.9 H, Lipase 278 11/28/21 16:40: Urine Color Yellow, Urine Clarity Sl. Cloudy, Urine pH 5.0, Ur Specific [place] 1.020, Urine Protein 30 H, Urine Glucose (UA) Normal, Urine Ketones Negative, Urine Occult Blood 10 H, Urine Nitrite Negative, Urine Bilirubin Negative, Urine Urobilinogen 1 H, Ur Leukocyte Esterase 25 H, Urine RBC 0-5 SEEN, Urine WBC 0-5 SEEN, Ur Squamous Epith Cells 0-5 SEEN, Urine Bacteria 1+, Hyaline Casts 10-25 SEEN, Fine Granular Casts 25-50 SEEN, Coarse Granular Casts 10-25 SEEN, Urine Mucus 0 SEEN Micro: Microbiology 11/28/21 15:53 Nasal Secretion SARS-CoV-2 Antigen (Rapid) - Final Radiology Impression Abdomen/Pelvis CT 11/28/21 15:41 IMPRESSION: 1. Increasing size of the left pleural effusion. 2. No significant change in the extensive metastatic disease involving the lungs, liver and peritoneum. 3. Stable moderate volume ascites. Electronically Signed: Ajay Menjivar MD at 16:35 EDT Reading Location ID and State: [address] [place] [address] Tel , Service support , Assessment & Plan Assessment/Plan (1) SAMANTHA (acute kidney injury): PLAN: Plan 1. SAMANTHA-likely related to dehydration. IV fluids, trend BMP. 2. Hyponatremia-reduced from prior. Likely related to hypovolemia. IV fluids, trend BMP. 3. Weakness, debility- PT/OT. Nutrition consult. consult for DC planning. 4. Ascites secondary to metastatic rectal cancer to liver, lung- follows with [facility]. Requiring recurrent paracentesis, last paracentesis 11/22. Paracentesis ordered for a.m. Will need albumin based on fluid removal. 5. LAWANDA-on CPAP. 6. Obesity- encouraged diet/lifestyle modifications. 7. Hypothyroidism-continue Synthroid regimen. DVT prophylaxis-Lovenox subcu This patient was seen by Janell Reid NP-C under the supervision of Dr. Castellano. Documented by User: Dr. Shannon Castellano, 11/28/21 19:08 HPI - General General Date of Admission: 11/28/21 HPI Narrative This patient was seen in conjunction with Janell Reid NP. The following represents my independent history and physical examination. Please see below for than the above. JESENIA LARSEN, is a 41 M who presented to the emergency department [facility] on 11/28/2021 with worsening weakness and increased abdominal swelling. The patient was recently diagnosed with metastatic rectal cancer. He has mets to the lung and liver. Patient has been undergoing chemo and radiation but reports he is not tolerating the treatments well. He has been converted to an oral pill which which he was supposed to start tomorrow. He has undergone 2 paracentesis at this time with the most recent one being last week. It appears that this was large-volume for approximately 8-1/2 L. The patient reports that even minimal exertion is difficult for him and causes severe fatigue. He denies any falls. He has having some nausea and vomiting. He reports that his food intake and water intake have been adequate per his thoughts. He reports abdominal soreness but not specific pain. He states that he is quite distended however he does not feel as distended as he previous was last week. Vital signs on presentation emergency department are temp of 96.9, blood pressure 129/79, heart rate of 87, respiratory rate 14, oxygen saturations 97% room air. His CBC shows a leukocytosis at 13.0 with a left shift, mild anemia, and a thrombocytosis. His sodium shows a sodium of 127, chloride of 92, BUN of 39, and a serum creatinine of 1.96. It appears that his baseline serum creatinine earlier this month was around 1-1.2. Transaminases are elevated and stable compared to earlier in November. His lipase is normal at 278. His UA is unremarkable. A CT of the abdomen pelvis was performed that showed increasing a left pleural effusion and no significant changes with extensive metastatic disease involving the lung the liver and the peritoneum and moderate ascites. [facility] Medical History Colon cancer Diarrhea due to drug DVT (deep venous thrombosis) Encounter for education Liver cancer Neuropathy Non-smoker Sleep apnea Surgical wound, non healing Wears glasses Home Medications aspirin 81 mg tablet,delayed release 81 mg PO BID HEART HEALTH 09/20/20 [History Last Taken 11/11/21] ascorbic acid (vitamin C) 500 mg capsule 500 mg PO DAILY SUPPLEMENT 12/18/20 [History Last Taken 11/05/21] multivitamin 1 tab PO DAILY SUPPLEMENT 12/18/20 [History Last Taken 11/11/21] omega-3 acid ethyl esters 1 gram capsule 1 cap PO DAILY SUPPLEMENT 12/18/20 [History Last Taken 11/05/21] levothyroxine 50 mcg tablet 50 mcg PO DAILY THYROID 11/12/21 [History Last Taken 11/05/21] ondansetron 4 mg disintegrating tablet 4 mg PO Q6H #18 tabs 11/22/21 [Rx Last Taken Unknown] oxycodone-acetaminophen 5 mg-325 mg tablet (Percocet) 1 tab PO Q4H PRN pain 3 days #18 tabs 11/22/21 [Rx Last Taken Unknown] spironolactone 50 mg tablet (Aldactone) 50 mg PO BID #60 tabs 11/23/21 [Rx Last Taken Unknown] Allergy/AdvReac Type Severity Reaction Status Date / Time amoxapine Allergy Severe RASH Verified 11/28/21 15:07 amoxicillin Allergy Severe HEAT RASH Verified 11/28/21 15:07 Penicillins Allergy Rash Verified 11/28/21 15:07 Family History Father CVA (cerebral vascular accident) Mother No cardiac disease Other Heart disease Liver cancer Stomach cancer Surgical History History of vascular access device Geraldine teeth extracted Social History household members: other details: currently living with mother Smoking Status: Never smoker second hand exposure: No alcohol intake: never substance use type: does not use ROS Constitutional Constitutional: Reports fatigue, malaise and weakness; Denies anorexia, change in weight, chills, fever(s), night sweats or other Eyes Eyes: Denies blurry vision, change in eye color, change in vision, discharge from eye(s), double vision, erythema, eye pain, loss of vision or other ENT HEENT: Denies abnormal hearing, dysphagia, ear pain, epistaxis, headache(s), hearing loss, nasal congestion, nasal discharge, post nasal drip, sinus pressure, sore throat or other Cardiovascular Cardiovascular: Denies chest pain, claudication, dyspnea on exertion, edema, lightheadedness, orthopnea, palpitations, paroxysmal nocturnal dyspnea, rapid heart rate, syncope or other Respiratory/Chest Respiratory/Chest: Denies cough, dyspnea, excessive phlegm production, hemoptysis, productive cough, shortness of breath at rest, shortness of breath with exertion, wheezing or other Gastrointestinal Gastrointestinal: Reports abdominal pain and other Details: Abdominal distention ; Denies coffee ground emesis, constipation, diarrhea, dyspepsia, hematemesis, hematochezia, loose stools, melena, nausea or vomiting Genitourinary Genitourinary: Denies burning urination, difficulty urinating, dysuria, hematuria, nocturia, urinary frequency, urinary hesitancy, urinary incontinence, urinary urgency or other Musculoskeletal Musculoskeletal: Denies arthralgias, back pain, joint pain, joint stiffness, joint swelling, myalgias, neck pain or other Integumentary Integumentary: Denies dry skin, jaundice, lesions, new lesions, pruritus, rash, wounds or other Neurologic Neurologic: Denies abnormal gait, abnormal speech, confusion, disequilibrium, dizziness, focal weakness, headache(s), numbness, paresthesias, seizure-like activity, seizures, syncope, tingling, tremor(s) or other Psychiatric Psychiatric: Denies anxiety, depression, homicidal ideation, suicidal ideation or other Endocrine Endocrinology: Denies change in body appearance, cold intolerance, excessive sweating, heat intolerance, polydipsia, polyuria or other Hematologic/Lymphatic Hematologic/Lymphatic: Denies anemia, easy bleeding, easy bruising, lymphadenopathy or other Allergic/Immunologic Allergic/Immunologic: Denies rhinitis, hives, eczemia, asthma or other Physical Exam Const alert, oriented x3 and well nourished Constitutional Narrative: Middle-aged morbidly obese white male who appears slightly uncomfortable but nontoxic HEENT normocephalic, head/scalp atraumatic, hearing grossly normal bilaterally, oropharynx normal and dentition normal HEENT Narrative: Just membranes are dry, Mallampati 3, no thrush Eyes PERRL, EOMs intact bilaterally and conjunctivae normal Neck no lymphadenopathy, supple, no JVD and no carotid bruits Resp normal respiratory effort, no retractions and no use of accessory muscles Resp Narrative: Diminished especially right base but no adventitious lung sounds Auscultation: Negative for crackles, rales, rhonchi or wheezes Cardio regular rate, regular rhythm, S1 normal heart sound, S2 normal heart sound, no murmurs, no rub, no gallops, no clicks and no JVD GI normal to inspection, nondistended, normoactive bowel sounds and soft to palpation GI Narrative: Distended, generalized tenderness, no significant fluid wave however the patient has a marked distention Extremity no clubbing, cyanosis or edema Extremity Narrative: 2+ pedal pulses Skin no rashes or lesions noted, no wounds, skin turgor normal, no jaundice, no petechiae and no mottling Neuro oriented x3, CN's II-XII intact bilaterally, moves all extremities and no focal motor deficits Neuro Narrative: No sensory loss Psych Psych Narrative: Affect is slightly flat the patient appears to have good eye contact and inte raction Results Lab / Micro Data Result Diagrams: 11/28/21 16:04 11/28/21 16:04 Assessment & Plan Assessment/Plan (1) SAMANTHA (acute kidney injury): PLAN: Plan Assessment: SAMANTHA Hyponatremia Severe debility/weakness Ascites Metastatic rectal cancer with mets to lung liver and peritoneum LAWANDA Hypothyroidism Morbid obesity Plan: -Suspect his SAMANTHA is related to dehydration but also could be related to previous chemotherapy -If no improvement may need further work-up -Baseline serum creatinine appears to be 1.0-1.2 -IV fluids on top of baseline boluses in the emergency department -Paracentesis tomorrow if greater than 5 L would treat with albumin 8 g for every liter greater than 5 L x 1 dose -Suspect hydration should improve hyponatremia -CPAP -PT/OT consultation as patient is having significant issues with mobility and weakness -Continue home medications Charges/Coding Visit Charges Inpatient E&M: 52378 Init Hosp L3
[2021-11-28 19:45] VITALS: BMI 38.9
[2021-11-28 19:57] VITALS: BP 135/87; PULSE 89; RESP 18; TEMP 36.7; O2SAT 96
[2021-11-28 22:30] VITALS: PULSE 103; RESP 19; O2SAT 95
[2021-11-28] MEDS: Aspirin E.C. 81 MG Tablet PO (22:45)
[2021-11-28] MEDS: Spironolactone 50 MG Tablet PO (22:45)
[2021-11-28] MEDS: 0.9% Normal Saline 1,000 ML 100 ML IV (22:45)
[2021-11-28] MEDS: Enoxaparin 40 MG/0.4 ML Syringe SC (22:45)
[2021-11-28] MEDS: HYDROmorphone 1 MG/ML Syringe IV (22:46)
[2021-11-28] MEDS: 0.9% Saline Lock 10 ML Syringe IV (22:47)
[2021-11-29] VITALS (8 sets, daily range): BP systolic 104–136; BP diastolic 70–92; PULSE 81–95; RESP 18–20; TEMP 36.1–36.8; O2SAT 94–99; BMI 38.9
[2021-11-29 04:54] LABS: Absolute Lymphocyte Count 0.76 X10^3/uL (0.83-4.51); Absolute Neutrophil Count 8.3 X10^3/uL (2.0-7.7); Basophil# 0.05 X10^3/uL; Basophil% 0.5 % (0-1); Eosinophil# 0.12 X10^3/uL; Eosinophils% 1.2 % (0-5); Hematocrit 34.7 % (40-54); Hemoglobin 10.4 g/dL (13.0-16.5); Lymphocyte # 0.76 X10^3/ul (0.83-4.51); Lymphocyte % 7.3 % (19-41); Mean Corpuscular Hgb 22.5 pg (27.0-32.0); Mean Corpuscular Volume 75.1 fL (80-94); Mean Platelet Vol. 9.2 fl (6.2-12.0); Monocyte# 0.97 X10^3/uL; Monocyte% 9.3 % (0-10); NRBC Flagged by Analyzer 0 % (0-5); Neutrophil % 79.9 % (47-70); Platelet Count 636 K/mm3 (150-450); RBC Distribution Width CV 17.9 % (11.6-14.6); Red Blood Count 4.62 M/mm3 (4.6-6.2); White Blood Count 10.4 K/mm3 (4.4-11.0)
[2021-11-29 05:21] LABS: ALB/GLOB Ratio 0.4 RATIO (0.9-2.4); AST(SGOT) 66 U/L (15-37); Alanine Aminotransfer ALT/SGPT 76 U/L (16-61); Albumin, Serum 1.8 g/dL (3.2-5.0); Alkaline Phosphatase 390 U/L (45-117); Anion Gap 8 (5-15); BUN 34 mg/dL (7-18); BUN/Creat Ratio 23.4 RATIO (10-20); Calcium,Total 8.7 mg/dL (8.5-10.1); Chloride 96 mmol/L (98-107); Creatinine, Serum 1.45 mg/dL (0.70-1.30); EST Glomerular Filtration Rate 57 mL/min (>60); Est Glom Filt Rate - Afr Amer 69 mL/min (>60); Estimated Creatinine Clearance 74.33 ml/min; Globulin 4.4 g/dL (2.2-4.2); Glucose 120 mg/dL (74-106); Magnesium 2.9 mg/dL (1.6-2.6); Phosphorus 4.5 mg/dL (2.5-4.9); Potassium 4.8 mmol/L (3.5-5.1); Protein, Total 6.2 g/dL (6.4-8.2); Sodium Level 126 mmol/L (136-145)
[2021-11-29] MEDS: Levothyroxine 50 MCG Tablet PO (05:39)
[2021-11-29] MEDS: 0.9% Normal Saline 1,000 ML 100 ML IV ×2 (05:39→17:52)
[2021-11-29] MEDS: Aspirin E.C. 81 MG Tablet PO ×2 (08:33→16:16)
[2021-11-29] MEDS: Ascorbic Acid 500 MG Tablet PO (08:33)
[2021-11-29] MEDS: Multivitamins,Therapeutic Tablet 1 TABLET PO (08:33)
[2021-11-29] MEDS: Omega-3 Acid Ethyl Esters 1 GM Capsule PO (08:34)
[2021-11-29] MEDS: Spironolactone 50 MG Tablet PO ×2 (09:13→21:43)
--- NOTE | 2021-11-29 10:35 | PN.HOSP_ITS ---
Subjective Subjective Patient seen and examined. He still felt weak and tired this morning. He denied any fever, chills, nausea, vomiting or diarrhea. Review of systems is otherwise negative. He has been with fluids on account of SAMANTHA he is due to have therapeutic paracentesis today. Objective Data Objective Data Vital Signs: Vital Signs Temp Pulse Resp BP Pulse Ox O2 Del Method FiO2 97.7 F L 87 18 125/76 H 94 Room Air 11/29/21 08:29 11/29/21 08:29 11/29/21 08:29 11/29/21 08:29 11/29/21 08:29 11/29/21 08:30 11/28/21 22:30 Oxygen Delivery Method Room Air Weight: 287 lb 7.724 oz Body Mass Index (BMI) 38.9 Intake & Output: Intake and Output for Last 24 Hours 11/27/21 11/28/21 11/29/21 23:59 23:59 23:59 Intake Total 1500 / 1740 1680 / 1680 Output Total 0 / 0 Balance 1500 / 1740 1680 / 1680 Lab / Micro Data Result Diagrams: 11/29/21 04:13 11/29/21 04:13 Labs: Laboratory Results - last 24 hr 11/28/21 16:04: WBC 13.0 H, RBC 5.14, Hgb 11.6 L, Hct 37.8 L, MCV 73.5 L, MCH 22.6 L, MCHC 30.7 L, RDW Std Deviation 45.6 H, RDW Coeff of [place] 18.1 H, Plt Count 706 H, MPV 8.9, Immature Gran % (Auto) 1.500 H, Neut % (Auto) 84.2 H, Lymph % (Auto) 6.2 L, [place] % (Auto) 7.0, Eos % (Auto) 0.8, Baso % (Auto) 0.3, Absolute Neuts (auto) 10.9 H, Absolute Lymphs (auto) 0.81 L, Nucleated RBC % 0 11/28/21 16:04: Sodium 127 L, Potassium 4.8, Chloride 92 L, Carbon Dioxide 23.0, Anion Gap 12, BUN 39 H, Creatinine 1.96 H, Estim Creat Clear Calc 54.99, Est GFR (MDRD) Af Amer 49 L, Est GFR (MDRD) Non-Af 40 L, BUN/Creatinine Ratio 19.9, Glucose 138 H, Calcium 9.2, Total Bilirubin 0.50, Direct Bilirubin 0.19, AST 83 H, ALT 92 H, Alkaline Phosphatase 459 H, Total Protein 7.0, Albumin 2.1 L, Globulin 4.9 H, Lipase 278 11/28/21 16:40: Urine Color Yellow, Urine Clarity Sl. Cloudy, Urine pH 5.0, Ur Specific [place] 1.020, Urine Protein 30 H, Urine Glucose (UA) Normal, Urine Ket ones Negative, Urine Occult Blood 10 H, Urine Nitrite Negative, Urine Bilirubin Negative, Urine Urobilinogen 1 H, Ur Leukocyte Esterase 25 H, Urine RBC 0-5 SEEN, Urine WBC 0-5 SEEN, Ur Squamous Epith Cells 0-5 SEEN, Urine Bacteria 1+, Hyaline Casts 10-25 SEEN, Fine Granular Casts 25-50 SEEN, Coarse Granular Casts 10-25 SEEN, Urine Mucus 0 SEEN 11/29/21 04:13: WBC 10.4, RBC 4.62, Hgb 10.4 L, Hct 34.7 L, MCV 75.1 L, MCH 22.5 L, MCHC 30.0 L, RDW Std Deviation 47.0 H, RDW Coeff of [place] 17.9 H, Plt Count 636 H, MPV 9.2, Immature Gran % (Auto) 1.800 H, Neut % (Auto) 79.9 H, Lymph % (Auto) 7.3 L, [place] % (Auto) 9.3, Eos % (Auto) 1.2, Baso % (Auto) 0.5, Absolute Neuts (auto) 8.3 H, Absolute Lymphs (auto) 0.76 L, Nucleated RBC % 0 11/29/21 04:13: Sodium 126 L, Potassium 4.8, Chloride 96 L, Carbon Dioxide 22.0, Anion Gap 8, BUN 34 H, Creatinine 1.45 H, Estim Creat Clear Calc 74.33, Est GFR (MDRD) Af Amer 69, Est GFR (MDRD) Non-Af 57 L, BUN/Creatinine Ratio 23.4 H, Glucose 120 H, Calcium 8.7, Phosphorus 4.5, Magnesium 2.9 H, Total Bilirubin 0.40, AST 66 H, ALT 76 H, Alkaline Phosphatase 390 H, Total Protein 6.2 L, Albumin 1.8 L, Globulin 4.4 H, Albumin/Globulin Ratio 0.4 L Micro: Microbiology 11/28/21 15:53 Nasal Secretion SARS-CoV-2 Antigen (Rapid) - Final Radiography Diagnostic Testing: Radiology Impression Abdomen/Pelvis CT 11/28/21 15:41 IMPRESSION: 1. Increasing size of the left pleural effusion. 2. No significant change in the extensive metastatic disease involving the lungs, liver and peritoneum. 3. Stable moderate volume ascites. Electronically Signed: Ajay Menjivar MD at 16:35 EDT , Physical Exam Const alert, oriented x3 and no apparent distress HEENT head/scalp atraumatic and moist oral mucous membranes Head and Scalp: normocephalic Mouth: dry mucous membranes Eyes PERRL, EOMs intact bilaterally and conjunctivae normal Neck no lymphadenopathy, supple and no JVD Resp normal respiratory effort, no retractions, no use of accessory muscles and clear to auscultation bilaterally Cardio regular rate, regular rhythm, S1 normal heart sound, S2 normal heart sound and no murmurs GI GI Narrative: abdomen distended, positive fluid thrill. no tenderness or guarding. Extremity normal to inspection, full ROM and no clubbing, cyanosis or edema Neuro oriented x3, CN's II-XII intact bilaterally, moves all extremities and no focal motor deficits Sensorium / Orientation: awake Motor Exam: strength 5/5 throughout Psych affect normal Assessment & Plan Assessment/Plan (1) SAMANTHA (acute kidney injury): (2) Abdominal ascites: (3) Metastatic adenocarcinoma: (4) Rectal cancer: PLAN: Plan #SAMANTHA * CR was 1.96 on admission, and is now down to 1.45 * likely pre-renal due to decreased intake * continue very gentle hydration with IVF #Massive recurrent ascites due to liver mets from rectal cancer * had paracentesis ~ 1 week ago, but filled up rapidly again with fluid * for therapeutic paracentesis today * will likely need albumin as well depending on amount of fluid drained. * #Debility due to metastatic rectal adenocarcinoma * PT/OT on board. Fall precautions * #HYponatremia * sodium is down to 126 today. * likely due to dehydration, though liver impairment from metastases and resultant ascites is also likely playing a role * check urine and serum osmolality and urine sodium * being gently hydrated with IVF * #Metastatic rectal cancer with mets to the lung, liver and peritoneum * follows with oncology. * has not been tolerating chemotherapy and radiation well. NOw transitioned to oral chemotherapy pill * #HYpothyroidism: on synthroid #LAWANDA: on CPAP qhs DVT prophylaxis: lovenox Charges/Coding Visit Charges Inpatient E&M: 53950 Subs Hosp L3
[2021-11-29] MEDS: 0.9% Saline Lock 10 ML Syringe IV ×2 (11:31→22:46)
[2021-11-29] MEDS: HYDROmorphone 1 MG/ML Syringe IV ×2 (11:31→22:45)
[2021-11-29] MEDS: Lidocaine 2% (5ml sdv) 5 ML VIAL.MPF INFILT (13:40)
[2021-11-29] MEDS: Ondansetron 4 MG/2 ML Vial IV (14:21)
--- NOTE | 2021-11-29 14:45 | CM.UR ---
Addendum entered by Luz Arevalo 11/29/21 21:23: 1515: Pt has returned to room. JANAY ECHEVARRIA broached topic of Palliative care w/pt at this time as well. He is agreeable to referral. Dr Gonzales made aware and order received. E-mail to Palliative re: referral and call placed to Luz @ Palliative. Original Note: JANAY ECHEVARRIA ASSESSMENT and readmission note: Prior admission: Pt admitted 11/13/21 w/intractable pain, metastatic CA, and ascites. Pt discharged home 11/14/21. See JANAY ECHEVARRIA note 11/14. Current admission: Admitted 11/28/21 w/severe dehydration and debility. JANAY ECHEVARRIA to room. Pt is out of room at this time getting paracentesis. Pt's mom/POA in room. JANAY ECHEVARRIA introduced self and role at [facility].? The following information was provided by mom. Care providers, pharmacy, and demographics verified/updated at this time. PCP: Breana Arroyo Specialists: Dr Quintero-oncology. Pt has an appt w/Dr Quintero on Friday and plan is to begin oral chemo next week. Preferred Pharmacy: [facility] Retail Insurance: [employer] Prescription Benefit:? Yes Living Will/HPOA:? Mom states pt has both LW and HPOA. She states she is HPOA and pt's brother, who lives in [place], is 1st alternative. LNOK: MomLesa. Father. Brother, Anshu Living Arrangements: Lives alone in an apartment. He was independent until recently. Mom states pt has been staying w/her and his father for the past 1 1/2 weeks d/t increased weakness and needing assistance w/care. They live in a 2-story home. There is no bathroom on the main floor and pt has difficulty w/the stairs, especially when he is having a lot of pain. Pt is able to shower on his own, but she assists w/dressing and does all IADL's for him. Transportation: Pt was driving up until 1 1/2 wks ago. Mom provides transportation DME: ? Pt has a shower chair. He also has a PAP, but has not worn it for approx 6-8 months. Mom states pt could use a BSC. She was made aware insurance does not cover for this and discussed several different places these could be purchased. HHC/SNF: No hx of either. Mom became tearful throughout conversation. Support provided. She states it has been difficult as her son has been declining and she also reports he has been depressed. Angelica GOODWIN, made aware. PLAN: ?Home w/family support and discharge plans in place. Pt meets criteria for Palliative referral. Broached topic with mom and she is agreeable to referral. Selena TURPINN RN CM
[2021-11-29] MEDS: Albumin Human 25% (100 mL) 25 GM/100 ML BAG IV (16:14)
--- NOTE | 2021-11-29 16:53 | CASEMGMT ---
JANAY ECHEVARRIA NOTE: Amanuel from Palliative was in to talk w/pt and his mom. Pt did not sign on w/Palliative care yet. He wishes to think more about it and discuss further w/his family. Palliative plans to f/u with pt next Friday to discuss things further. Selena TURPINN JANAY ECHEVARRIA
--- NOTE | 2021-11-29 19:37 | US_ITS ---
PROCEDURE: Ultrasound guided paracentesis. DATE OF EXAMINATION: 11/28/2021. INDICATION: Male, 41 years old. Ascites. PHYSICIAN: Lm Robb M.D. TECHNIQUE: The risks, benefits, and alternatives to the procedure were explained to the patient. The specific risks of bleeding, infection, and damage to bowel were detailed and accepted. Witnessed informed consent was obtained. The abdomen was ultrasonographically surveyed. An appropriate pocket of fluid was identified at the right lower quadrant. The skin were cleaned and prepped in the usual sterile fashion. Using ultrasound guidance, the peritoneal cavity was accessed with a 5-Canadian paracentesis needle/catheter system. The trocar was removed. A total of 5650 ml of blood tinged fluid were removed from the peritoneal cavity. The catheter was removed and a sterile dressing was applied. The procedure was well tolerated. US/Paracentesis with US IMPRESSION: Ultrasound guided paracentesis. Electronically Signed: Lm Robb MD at 14:26 EDT ,
--- NOTE | 2021-11-29 22:18 | CPS ---
Pt. politely refused use of CPAP tonight. Pt. is maintaining appropriate oxygenation saturations at this time (97% on Room Air)
[2021-11-30 03:40] VITALS: BP 116/78; PULSE 85; RESP 18; TEMP 36.7; O2SAT 96
[2021-11-30] MEDS: 0.9% Normal Saline 1,000 ML 100 ML IV (03:51)
[2021-11-30] MEDS: Levothyroxine 50 MCG Tablet PO (05:58)
[2021-11-30 07:38] VITALS: O2SAT 94
[2021-11-30] MEDS: Aspirin E.C. 81 MG Tablet PO (08:03)
[2021-11-30] MEDS: Omega-3 Acid Ethyl Esters 1 GM Capsule PO (08:03)
[2021-11-30] MEDS: Multivitamins,Therapeutic Tablet 1 TABLET PO (08:03)
[2021-11-30] MEDS: Ascorbic Acid 500 MG Tablet PO (08:03)
[2021-11-30] MEDS: Spironolactone 50 MG Tablet PO (08:03)
[2021-11-30 09:04] LABS: ALB/GLOB Ratio 0.5 RATIO (0.9-2.4); AST(SGOT) 65 U/L (15-37); Alanine Aminotransfer ALT/SGPT 63 U/L (16-61); Alkaline Phosphatase 368 U/L (45-117); Anion Gap 6 (5-15); BUN 22 mg/dL (7-18); Calcium,Total 8.5 mg/dL (8.5-10.1); Chloride 100 mmol/L (98-107); Creatinine, Serum 1.05 mg/dL (0.70-1.30); EST Glomerular Filtration Rate 83 mL/min (>60); Est Glom Filt Rate - Afr Amer 100 mL/min (>60); Estimated Creatinine Clearance 102.65 ml/min; Globulin 4.1 g/dL (2.2-4.2); Glucose 108 mg/dL (74-106); Potassium 5.1 mmol/L (3.5-5.1); Protein, Total 6.1 g/dL (6.4-8.2); Sodium Level 129 mmol/L (136-145)
--- NOTE | 2021-11-30 09:12 | CASEMGMT ---
SW met with patient due to his young age and cancer diagnosis. Patient was eating his breakfast, but was willing to talk with SW. SW asked patient how he is coping. Patient expressed he is managing okay, but it is hard. He is a pantry chef and really enjoys cooking, but it is too hard to continue as he cannot keep up. Patient said his mom is supportive and helps him a lot. Patient will be meeting with Tonie at [facility] to apply for disability. SW listened and provided emotional support. Patient denied need for counseling resources. Patient thanked SW for checking in with him. SW let patient know if he would like to talk more he is always welcome to ask for SW. Angelica Laurent [employer] ENGINEER SONLA
[2021-11-30 09:45] VITALS: BP 136/81; PULSE 99; RESP 18; TEMP 36.7; O2SAT 95
--- NOTE | 2021-11-30 10:13 | DS.PCM_ITS ---
Providers Date of Admission: 11/28/21 Primary Care Physician: Breana Arroyo Reason For Visit: SEVERE DEHYDRATION AND DEBILITY Diagnosis Discharge Diagnosis (1) SAMANTHA (acute kidney injury): Status: Acute Code(s): N17.9 - Acute kidney failure, unspecified (2) Abdominal ascites: Status: Inactive Code(s): R18.8 - Other ascites (3) Metastatic adenocarcinoma: Status: Inactive Code(s): C79.9 - Secondary malignant neoplasm of unspecified site (4) Rectal cancer: Status: Acute Code(s): C20 - Malignant neoplasm of rectum Plan #SAMANTHA * CR was 1.96 on admission, and is now down to 1.45 * likely pre-renal due to decreased intake * continue very gentle hydration with IVF #Massive recurrent ascites due to liver mets from rectal cancer * had paracentesis ~ 1 week ago, but filled up rapidly again with fluid * for therapeutic paracentesis today * will likely need albumin as well depending on amount of fluid drained. * #Debility due to metastatic rectal adenocarcinoma * PT/OT on board. Fall precautions * #HYponatremia * sodium is down to 126 today. * likely due to dehydration, though liver impairment from metastases and resultant ascites is also likely playing a role * check urine and serum osmolality and urine sodium * being gently hydrated with IVF * #Metastatic rectal cancer with mets to the lung, liver and peritoneum * follows with oncology. * has not been tolerating chemotherapy and radiation well. NOw transitioned to oral chemotherapy pill * #HYpothyroidism: on synthroid #LAWANDA: on CPAP qhs DVT prophylaxis: lovenox Medications at Discharge Home Medications aspirin 81 mg tablet,delayed release 81 mg PO BID DDN 09/20/20 ascorbic acid (vitamin C) 500 mg capsule 500 mg PO DAILY SUPPLEMENT 12/18/20 multivitamin 1 tab PO DAILY SUPPLEMENT 12/18/20 omega-3 acid ethyl esters 1 gram capsule 1 cap PO DAILY SUPPLEMENT 12/18/20 levothyroxine 50 mcg tablet 50 mcg PO DAILY THYROID 11/12/21 spironolactone 50 mg tablet (Aldactone) 50 mg PO BID #60 tabs 11/23/21 Hospital Course Operations None Procedures Paracentesis Summary of Care Provided Minutes Spent on Discharge: 40 Hospital Course: Is a 41-year-old male with past medical history as outlined was admitted through the ED on 11/28/2021 with a complaint of weakness and increased abdominal swelling. Patient has a history of rectal cancer with mets status to the liver and the lungs. He had outpatient thoracentesis about a week prior to admission but had gradually become weaker at home and his abdominal distention had worsened. He was unable to carry out his activities of daily living due to weakness. He also had assisted nausea and vomiting. He therefore came into the ED. He was found to have elevated creatinine and was admitted and managed for debility and weakness due to metastatic rectal cancer as well as SAMANTHA and massive ascites. He was hydrated with fluids and he had thoracentesis with removal of about 5.6 L of fluid. He was given albumin. His kidney function improved and he felt much better. He was discharged home on 11/30/2021. A standing order as needed for paracentesis was obtained from his oncologist for patient to have paracentesis as needed on outpatient basis. He is to follow-up with his primary care doctor and oncology. Patient seen and examined prior to discharge. He felt better. He had no active complaints and review of systems otherwise negative. Labs and vitals reviewed. Medication reviewed and reconciled. Physical Exam Const alert, oriented x3, no apparent distress and well nourished General Appearance: cooperative and comfortable Orientation / Consciousness: awake Exam Limitations: no limitations HEENT normocephalic, head/scalp atraumatic, hearing grossly normal bilaterally, moist oral mucous membranes, oropharynx normal and dentition normal Mouth: oral and palatal mucosa normal Eyes PERRL, EOMs intact bilaterally and conjunctivae normal Neck no lymphadenopathy, supple, no JVD and no carotid bruits Resp normal respiratory effort, no retractions, no use of accessory muscles and clear to auscultation bilaterally Auscultation: diminished lung sounds; Negative for crackles, rales, rhonchi or wheezes Cardio regular rate, regular rhythm, S1 normal heart sound, S2 normal heart sound, no murmurs and no rub GI GI Narrative: abdomen distension has improved, positive fluid thrill. no tenderness or guarding. Extremity normal to inspection, full ROM and no clubbing, cyanosis or edema Extremity Narrative: 2+ pedal pulses Skin no rashes or lesions noted, no wounds, skin turgor normal, no jaundice, no petechiae and no mottling Lesions: no lesions Rashes: no rashes Trauma: no lacerations or abrasions Neuro oriented x3, CN's II-XII intact bilaterally, moves all extremities, no focal motor deficits, no sensory deficits noted and deep tendon reflexes 2+ bilaterally Neuro Narrative: No sensory loss Sensorium / Orientation: awake Motor Exam: strength 5/5 throughout Psych affect normal Medical Records Data Medical Nutrition Assessment Dietitian: Malnutrition Criteria Met Start: 11/29/21 12:25 Freq: Status: Active Protocol: Document 11/29/21 13:33 LO (Rec: 11/29/21 13:33 LO [id number]) Nutrition Malnutrition Evidence of Malnutrition Exists Yes Malnutrition (severe): Chronic Evidenced By Suboptimal Energy Intake ( Severe),Weight Loss (Severe) Clinical Problem Chronic Disease or Condition Related Malnutrition Etiology related to rectal cancer with met to liver and lung Signs/Symptoms as evidenced by pt consuming < 75% of estimated energy needs and 10.5% weight loss in 1 month. Status Active Problem Recommendation Dietitian Recommendations/Changes Continue Regular diet. RD will add Ensure Compact BID with lunch and dinner. Weight / BMI Weight Weight: 287 lb 7.724 oz Body Mass Index (BMI) 38.9 ABG / Lab / Microbiology Data Result Diagrams: 11/29/21 04:13 11/30/21 08:03 Laboratory: Laboratory Results - last 24 hr 11/30/21 08:03: Sodium 129 L, Potassium 5.1, Chloride 100, Carbon Dioxide 23.0, Anion Gap 6, BUN 22 H, Creatinine 1.05, Estim Creat Clear Calc 102.65, Est GFR (MDRD) Af Amer 100, Est GFR (MDRD) Non-Af 83, BUN/Creatinine Ratio 21.0 H, Glucose 108 H, Calcium 8.5, Total Bilirubin 0.60, AST 65 H, ALT 63 H, Alkaline Phosphatase 368 H, Total Protein 6.1 L, Albumin 2.0 L, Globulin 4.1, Albumin/Globulin Ratio 0.5 L Microbiology: Microbiology 11/28/21 15:53 Nasal Secretion SARS-CoV-2 Antigen (Rapid) - Final Radiography Diagnostic Testing: Radiology Impression Paracentesis Ultrasound 11/29/21 19:37 IMPRESSION: Ultrasound guided paracentesis. Electronically Signed: Lm Robb MD at 14:26 EDT , D/C Instructions Discharge Diet: Low fat / Low cholesterol Discharge Activity: Return to Normal Activity Weight Bearing Status: Weight bearing as tolerated Call your doctor if you observe: Fever of 101 or Higher, Shortness of breath, Swelling in the ankles and - (worsening abdominal distension) Meaningful Use Info Meaningful Use Diagnoses (Choose all that apply): None applicable Discharge Plan Admission Admit Date/Time: 11/28/21 18:02 Primary Reason for Your Visit: ascites due to metastatic rectal cancer Attending Provider: Shani Gonzales Primary Care Provider: Breana Arroyo Consulting Providers: Shannon Castellano Instructions Patient Instructions: Paracentesis Discharge Orders/Prescriptions Prescriptions: Continued ascorbic acid (vitamin C) 500 mg capsule 500 mg PO DAILY multivitamin Tablet 1 tab PO DAILY omega-3 acid ethyl esters 1 gram capsule 1 cap PO DAILY aspirin 81 mg tablet,delayed release (DR/EC) 81 mg PO BID levothyroxine 50 mcg tablet 50 mcg PO DAILY spironolactone [Aldactone] 50 mg tablet 50 mg PO BID Qty: 60 0RF Referrals / Follow Up: Orlando Quintero MD [NON-STAFF] - Within 2 Weeks Breana Arroyo [Primary Care Provider] - Within 2 Weeks Disposition Disposition (needs filled in before D/C Order can be placed): Home, Self Care Charges/Coding Visit Charges Inpatient E&M: 04992 Disch Hosp
[2021-11-30] MEDS: Enoxaparin 40 MG/0.4 ML Syringe SC (10:16)
== END 2021-11-30 13:46 | disposition home or self-care (01) | DRG 683 ==
LOC: ED 17:49 → PCU 21:04
PROVIDERS: Admitting Provider Internal Medicine; Emergency Provider Emergency Medicine; Visit Provider Student in an Organized Health Care Education/Training Program
DX: N17.9 Acute kidney failure, unspecified (principal); J90 Pleural effusion, not elsewhere classified; R18.8 Other ascites; E87.1 Hypo-osmolality and hyponatremia; C78.7 Secondary malignant neoplasm of liver and intrahepatic bile duct; C20 Malignant neoplasm of rectum; K72.90 Hepatic failure, unspecified without coma; E66.01 Morbid (severe) obesity due to excess calories; E86.0 Dehydration; D64.9 Anemia, unspecified; E03.9 Hypothyroidism, unspecified; G47.33 Obstructive sleep apnea (adult) (pediatric); Z80.0 Family history of malignant neoplasm of digestive organs; R53.81 Other malaise; Z79.82 Long term (current) use of aspirin; R05.3 Chronic cough
CPT/HCPCS: 36415; 49083; 74177; 80048; 80053; 80076; 81001; 83690; 83735; 84100; 85025; 87811; 94002; 94660; 97162; 97166; 97802; 99284; J7030; P9047; Q9967; A4216; J2405

== ENCOUNTER → 2021-12-05 | Outpatient (CLI) | payer SELFPAY ==
--- NOTE | 2021-12-05 12:13 | US_ITS ---
PROCEDURE: Ultrasound guided paracentesis. DATE OF EXAMINATION: 12/05/2021. INDICATION: Male, 41 years old. Ascites. PHYSICIAN: Lm Robb M.D. TECHNIQUE: The risks, benefits, and alternatives to the procedure were explained to the patient. The specific risks of bleeding, infection, and damage to bowel were detailed and accepted. Witnessed informed consent was obtained. The abdomen was ultrasonographically surveyed. An appropriate pocket of fluid was identified at the right lower quadrant. The skin were cleaned and prepped in the usual sterile fashion. Using ultrasound guidance, the peritoneal cavity was accessed with a 5-East [place]orese paracentesis needle/catheter system. The trocar was removed. A total of 2250 ml of dark tarik-colored fluid were removed from the peritoneal cavity. The catheter was removed and a sterile dressing was applied. The procedure was well tolerated. US/Paracentesis with US IMPRESSION: Ultrasound guided paracentesis. Electronically Signed: Lm Robb MD at 13:53 EDT ,
[2021-12-05 12:55] VITALS: BP 111/72; BP 118/69; PULSE 60; PULSE 91; RESP 16; RESP 18; O2SAT 92; O2SAT 96
[2021-12-05] MEDS: Lidocaine 2% (10 ml mdv) 10 ML Vial 8 ML INFILT (13:13)
== END | disposition home or self-care (01) ==
LOC: US 12:13
PROVIDERS: Referring Provider Internal Medicine Medical Oncology; Visit Provider Internal Medicine Medical Oncology
DX: C20 Malignant neoplasm of rectum (principal); C78.7 Secondary malignant neoplasm of liver and intrahepatic bile duct; C78.00 Secondary malignant neoplasm of unspecified lung; R18.8 Other ascites
CPT/HCPCS: 49083

== ENCOUNTER → 2021-12-12 | Outpatient (CLI) | payer SELFPAY ==
--- NOTE | 2021-12-12 12:41 | US_ITS ---
PROCEDURE: ULTRASOUND GUIDED PARACENTESIS CLINICAL HISTORY: Male, 41 years old. ASCITES PHYSICIAN: Alejandro Lubin MD INFORMED CONSENT: The risks, benefits, and alternatives to the procedure were explained to the patient. The specific risks of bleeding, infection, and damage to bowel were detailed and accepted. Witnessed informed consent was obtained. TECHNIQUES: The abdomen was ultrasonographically surveyed. An appropriate pocket of fluid was identified at the right/left lower quadrant. The skin was cleaned and prepped in the usual sterile fashion. Using ultrasound guidance, the peritoneal cavity was accessed with a 5-Italian paracentesis needle/catheter system. The trocar was removed. A total of 1100 ml of tarik ascitic fluid was removed from the peritoneal cavity. The catheter was removed and a sterile dressing was applied. The procedure was well tolerated. The patient did receive albumin during the procedure. # of Images: 10 US/Paracentesis with US IMPRESSION: Ultrasound guided paracentesis. Electronically Signed: Pako Lubin MD at 15:07 EDT ,
[2021-12-12] MEDS: Lidocaine 2% (10 ml mdv) 10 ML Vial INFILT (13:25)
[2021-12-12 13:26] VITALS: BP 107/77; BP 110/81; PULSE 101; PULSE 95; RESP 16; RESP 18; O2SAT 95; O2SAT 98
== END | disposition home or self-care (01) ==
PROVIDERS: Referring Provider Internal Medicine Medical Oncology; Visit Provider Internal Medicine Medical Oncology
DX: R18.8 Other ascites (principal)
CPT/HCPCS: 49083

== ENCOUNTER → 2021-12-24 | Outpatient (CLI) | payer SELFPAY ==
[2021-12-24 13:32] LABS: Absolute Lymphocyte Count 0.69 X10^3/uL (0.83-4.51); Absolute Neutrophil Count 14.2 X10^3/uL (2.0-7.7); Basophil# 0.06 X10^3/uL; Basophil% 0.4 % (0-1); Eosinophil# 0.07 X10^3/uL; Eosinophils% 0.4 % (0-5); Hematocrit 33.5 % (40-54); Lymphocyte # 0.69 X10^3/ul (0.83-4.51); Lymphocyte % 4.2 % (19-41); Mean Corp Hgb Conc 29.9 g/dL (32-36); Mean Corpuscular Hgb 22.5 pg (27.0-32.0); Mean Corpuscular Volume 75.3 fL (80-94); Mean Platelet Vol. 8.8 fl (6.2-12.0); Monocyte# 0.99 X10^3/uL; NRBC Flagged by Analyzer 0.1 % (0-5); Neutrophil # 14.19 X10^3/uL (2.7-7.7); Neutrophil % 86.6 % (47-70); POSITIVE MORPHOLOGY YES; Platelet Count 632 K/mm3 (150-450); RBC Distribution Width SD 54.5 fl (35.1-43.9); Red Blood Count 4.45 M/mm3 (4.6-6.2); White Blood Count 16.4 K/mm3 (4.4-11.0)
[2021-12-24 13:57] LABS: ALB/GLOB Ratio 0.4 RATIO (0.9-2.4); AST(SGOT) 92 U/L (15-37); Alanine Aminotransfer ALT/SGPT 71 U/L (16-61); Albumin, Serum 2.1 g/dL (3.2-5.0); Alkaline Phosphatase 485 U/L (45-117); Anion Gap 11 (5-15); BUN 20 mg/dL (7-18); BUN/Creat Ratio 21.8 RATIO (10-20); Chloride 95 mmol/L (98-107); Creatinine, Serum 0.92 mg/dL (0.70-1.30); EST Glomerular Filtration Rate 97 mL/min (>60); Est Glom Filt Rate - Afr Amer 117 mL/min (>60); Globulin 5.2 g/dL (2.2-4.2); Glucose 127 mg/dL (74-106); LDH 297 U/L (87-241); Potassium 4.4 mmol/L (3.5-5.1); Protein, Total 7.3 g/dL (6.4-8.2); Sodium Level 129 mmol/L (136-145)
[2021-12-24 14:03] LABS: Differential Indicated SCAN CRITERIA MET
[2021-12-24 14:04] LABS: Anisocytosis 1+
[2021-12-24 21:07] LABS: Xtra Tube EP Lab EXTRA TUBE
== END | disposition home or self-care (01) ==
PROVIDERS: Referring Provider Internal Medicine Medical Oncology; Visit Provider Internal Medicine Medical Oncology
DX: C20 Malignant neoplasm of rectum (principal)
CPT/HCPCS: 36415; 80053; 83615; 85025

== ENCOUNTER → 2021-12-24 | Outpatient (CLI) | payer MEDICAID, SELFPAY ==
--- NOTE | 2021-12-24 11:53 | US_ITS ---
STUDY: ABDOMINAL ULTRASOUND - LIMITED QUADRANT REASON FOR VISIT: Male, 41 years old abdominal ASCITES TECHNIQUE: Ultrasound evaluation of the right upper quadrant was performed with real-time and static landon-scale imaging. TECHNICAL QUALITY: Adequate. COMPARISON: None. FINDINGS: There is ascites visualized within the right upper and lower quadrants. There is minimal fluid within the left upper and lower quadrants. US/Abdomen Limited IMPRESSION: Ascites, most pronounced within the right upper and lower quadrants. Electronically Signed: Casi Holman MD at 13:08 EDT ,
== END | disposition home or self-care (01) ==
PROVIDERS: Referring Provider Internal Medicine Medical Oncology; Visit Provider Internal Medicine Medical Oncology
DX: R18.8 Other ascites (principal)
CPT/HCPCS: 76705

== ENCOUNTER 2021-12-26 22:10 | Emergency (ER) | payer MEDICAID, SELFPAY ==
[2021-12-26 22:11] VITALS: BP 132/89; PULSE 140; RESP 19; TEMP 35.8; O2SAT 97; BMI 35.2
--- NOTE | 2021-12-26 22:30 | EKG12_ITS ---
Test Reason : SOB Blood Pressure : / mmHG Vent. Rate : 117 BPM Atrial Rate : 117 BPM P-R Int : 126 ms QRS Dur : 088 ms QT Int : 320 ms P-R-T Axes : 025 014 037 degrees QTc Int : 446 ms Sinus tachycardia Low voltage QRS Confirmed by ANGI LARA, AMOL ([id number]), sound editor NAYANA VILLALPANDO ([id number]) on 12/28/2021 9:41:11 AM Referred By: Confirmed By:AMOL WHITLEY MD
--- NOTE | 2021-12-26 22:30 | CT_ITS ---
EXAM: CT ANGIOGRAPHY CHEST, ABDOMEN AND PELVIS WITH INTRAVENOUS CONTRAST CLINICAL INDICATION: dyspnea TECHNIQUE: Helically acquired angiography images were obtained of the chest, abdomen and pelvis with intravenous contrast. This CT exam was performed using one or more of the following dose reduction techniques: automated exposure control, adjustment of the mA and/or kV according to patient size, and/or use of iterative reconstruction technique. This report was created using [employer] report generation technology. MIP reconstructed images were created and reviewed. CONTRAST: 100 cc of Isovue-370 IV. RADIATION DOSE: CTDIvol = 24.53 mGy, DLP = 1555.27 mGy-cm. COMPARISON: None. FINDINGS: VASCULATURE: AORTA: No acute findings. Normal in caliber. No dissection. PULMONARY ARTERIES: Unremarkable. Normal in caliber. No obvious central pulmonary embolism although this study was not performed with the pulmonary embolism protocol. GREAT VESSELS OF AORTIC ARCH: Unremarkable. Normal in caliber. No dissection. CELIAC TRUNK AND MESENTERIC ARTERIES: No acute findings. No occlusion or significant stenosis. No dissection. RENAL ARTERIES: No acute findings. No occlusion or significant stenosis. No dissection. ILIAC ARTERIES: No acute findings. No occlusion or significant stenosis. No dissection. CHEST: LUNGS AND PLEURAL SPACES: Large left pleural effusion. Atelectasis left lower lobe. Innumerable pulmonary nodules. No pneumothorax. HEART: Unremarkable. Heart size is normal. No pericardial effusion. MEDIASTINUM: Unremarkable. No mediastinal or hilar adenopathy. Esophagus is unremarkable. No hiatal hernia. THYROID: Unremarkable. No thyroid lesions. ABDOMEN: LIVER: Hepatic metastases increased since previous exam. GALLBLADDER AND BILE DUCTS: Unremarkable. No calcified gallstones. No gallbladder distention or wall edema. No intra- or extrahepatic biliary ductal dilation. PANCREAS: Unremarkable. No focal cystic or solid mass. SPLEEN: Unremarkable. Normal size without focal cystic or solid mass. ADRENALS: Unremarkable. No nodules. KIDNEYS AND URETERS: Parapelvic cysts left kidney. No hydronephrosis. STOMACH AND BOWEL: Unremarkable. No stomach or bowel distention. No focal inflammatory change. PELVIS: APPENDIX: No evidence of acute appendicitis. BLADDER: Unremarkable. REPRODUCTIVE: Unremarkable as visualized. No mass. CHEST, ABDOMEN and PELVIS: INTRAPERITONEAL SPACE: Peritoneal carcinomatosis with large amount of ascites similar to the prior exam. No free air. BONES/JOINTS: Unremarkable. No suspicious lytic or blastic abnormality. SOFT TISSUES: Unremarkable. No discrete abdominal or pelvic wall hernia. LYMPH NODES: Unremarkable. No enlarged lymph nodes. CT/CTA Chst, Abd, Pel W and/or WO IMPRESSION: 1. No pulmonary embolism or dissection. 2. Large left pleural effusion. 3. Atelectasis left lower lobe. 4. Innumerable pulmonary nodules. 5. Hepatic metastases increased since previous exam. 6. Peritoneal carcinomatosis with large amount of ascites similar to the prior exam. Electronically Signed: Ko Desai MD at 23:44 EDT ,
--- NOTE | 2021-12-26 22:33 | EX.ED.DYSGE1 ---
HPI History of Present Illness Chief Complaint: Shortness of Breath Narrative Narrative: Patient is a 41-year-old male with past medical history of rectal cancer with metastasis to the liver and lung. He has recurrent ascites secondary to this. He states he is on oral daily chemo treatment. He reports that he was seen on Friday just 2 days ago for a paracentesis ultrasound but there revealed minimal fluid and therefore no drainage was performed. Patient states he was sitting at home this evening about 1 hour prior to arrival when he developed shortness of breath at rest. He denies any chest pain associated with this and he denies any recent fevers chills or known sick contact. However with his shortness of breath sensation and complex medical history who presents for evaluation [facility] Medical History Ascites Colon cancer Diarrhea due to drug DVT (deep venous thrombosis) Encounter for education Liver cancer Neuropathy Non-smoker Pleural effusion Rectal cancer Sleep apnea Surgical wound, non healing Wears glasses Home Medications aspirin 81 mg tablet,delayed release 81 mg PO BID [facility] 09/20/20 [History Last Taken 11/11/21] ascorbic acid (vitamin C) 500 mg capsule 500 mg PO DAILY SUPPLEMENT 12/18/20 [History Last Taken 11/05/21] multivitamin 1 tab PO DAILY SUPPLEMENT 12/18/20 [History Last Taken 11/11/21] omega-3 acid ethyl esters 1 gram capsule 1 cap PO DAILY SUPPLEMENT 12/18/20 [History Last Taken 11/05/21] levothyroxine 50 mcg tablet 50 mcg PO DAILY THYROID 11/12/21 [History Last Taken 11/05/21] spironolactone 50 mg tablet (Aldactone) 50 mg PO BID #60 tabs 11/23/21 [Rx Last Taken Unknown] ondansetron 4 mg disintegrating tablet 4 mg PO Q8H PRN nausea and vomiting #30 tabs 12/05/21 [Rx Last Taken Unknown] cyclobenzaprine 5 mg tablet 5 mg PO TID PRN muscle spasm #60 tabs 12/24/21 [Rx Last Taken Unknown] prednisone 20 mg tablet 40 mg PO DAILY #20 tabs 12/24/21 [Rx Last Taken Unknown] regorafenib 40 mg tablet (Stivarga) 160 mg PO DAILY 12/24/21 [History Last Taken Unknown] Allergy/AdvReac Type Severity Reaction Status Date / Time amoxapine Allergy Severe RASH Verified 12/05/21 14:08 amoxicillin Allergy Severe HEAT RASH Verified 12/05/21 14:08 Penicillins Allergy Rash Verified 12/05/21 14:08 Family History Father CVA (cerebral vascular accident) Mother No cardiac disease Other Heart disease Liver cancer Stomach cancer Surgical History History of vascular access device [place] teeth extracted Social History household members: other details: currently living with mother Smoking Status: Never smoker second hand exposure: No alcohol intake: never substance use type: does not use ROS ROS ED Constitutional Constitutional ED: Denies chills or fever(s) ENT ENT ED: Reports sore throat; Denies rhinorrhea Cardiovascular Cardiovascular: Reports racing heartbeat; Denies chest pain Respiratory/Chest Respiratory/Chest: Reports cough and dyspnea Gastrointestinal Gastrointestinal: Denies abdominal pain, diarrhea, nausea or vomiting Genitourinary Genitourinary ED: Denies dysuria Musculoskeletal Musculoskeletal: Denies myalgias Integumentary Denies rash Neurologic Neurologic: Denies headache(s) Psychiatric Psychiatric: Denies anxiety Hematologic/Lymphatic Hematologic/Lymphatic: Denies easy bleeding or easy bruising EXAM Physical Exam Const Vital Signs: 12/26/21 22:11 12/26/21 22:37 12/27/21 00:11 Temperature 96.4 F L Temperature Source Temporal Pulse Rate 140 H 110 H Respiratory Rate 19 H 25 H Respiratory Effort Normal Respiratory Depth Normal Respiratory Pattern Normal Blood Pressure 132/89 H 119/85 H Blood Pressure Mean 103 96 Pulse Ox 97 96 Oxygen Delivery Method Room Air Room Air 12/27/21 00:57 Temperature Temperature Source Pulse Rate 108 H Respiratory Rate 18 Respiratory Effort Respiratory Depth Respiratory Pattern Blood Pressure 119/82 H Blood Pressure Mean Pulse Ox 98 Oxygen Delivery Method Positive well nourished, well developed and obese General Appearance ED: well developed Nutritional Appearance: obese HEENT Reports moist mucous membranes HEENT Narrative: No tongue or lip swelling no oral lesions no airway edema or compromise Eyes PERRL and EOMs intact bilaterally General Eye ED: Yes scleral icterus Neck supple and no JVD Neck Narrative: No crepitance noted Chest Wall palpation of chest normal Resp Resp Narrative: Patient has mild tachypnea but otherwise breath sounds are diminished throughout but overall clear to auscultation Cardio regular rhythm Rate: tachycardic and other Other Details: Radial pulses are +2-4 bilaterally are equal and symmetric GI non-tender GI Narrative: Abdomen has diffuse distention and firmness without pain to palpation. There is overlying mild ecchymosis to the entire abdomen. No fluid wave is noted no pulsatile mass Extremity Extremity Narrative: Trace pitting edema to the bilateral lower extremities. Negative Homans' sign bilaterally Neuro oriented x3 and CN's II-XII intact bilaterally Sensorium / Orientation: alert Psych mental status grossly normal Skin no rashes or lesions noted General Skin Exam: jaundice MDM MDM MDM Narrative Medical decision making narrative: Patient presented to the ER tachycardic but otherwise with stable vitals and in no acute respiratory distress. With his history of metastatic cancer there is concern he has developed a spontaneous pulmonary embolus or secondary infection so basic labs and imaging studies were ordered. I did elect to perform a CT of the chest abdomen pelvis as he was firm with concern for internal bleeding versus severe ascites. Blood work showed multiple laboratory changes for the patient but chart review indicates that these are chronic in nature and at his baseline. CTA of the chest abdomen and pelvis revealed a large left pleural effusion and severe ascites. I do feel like his shortness of breath is most likely caused by the fluid in the lung as well as the pressure/compression on the lung field from the ascites. However this time he is not requiring any supplemental oxygen and he does not have physical exam or laboratory changes to suggest a spontaneous bacterial peritonitis. Therefore as patient is not having severe derangement from his baseline labs and he is not hypoxic or requiring submental oxygen he can have a possible paracentesis and thoracentesis done on an outpatient basis Lab Data Attestation: I reviewed the patient's lab results. Labs: Laboratory Results - last 24 hr 12/26/21 12/26/21 12/26/21 22:46 22:46 22:46 WBC 14.9 H RBC 4.43 L Hgb 9.9 L Hct 33.0 L MCV 74.5 L MCH 22.3 L MCHC 30.0 L RDW Std Deviation 54.4 H RDW Coeff of Walter 21.6 H Plt Count 656 H MPV 8.9 Immature Gran % (Auto) 1.400 H Neut % (Auto) 86.3 H Lymph % (Auto) 4.5 L Glasscock % (Auto) 6.6 Eos % (Auto) 0.7 Baso % (Auto) 0.5 Absolute Neuts (auto) 12.9 H Absolute Lymphs (auto) 0.67 L Nucleated RBC % 0 Differential Comment SCANNED PT INR APTT Sodium 130 L Potassium 4.6 Chloride 96 L Carbon Dioxide 21.0 Anion Gap 13 BUN 19 H Creatinine 0.94 Estim Creat Clear Calc 114.66 Est GFR (MDRD) Af Amer 114 Est GFR (MDRD) Non-Af 94 BUN/Creatinine Ratio 20.2 H Glucose 125 H Calcium 9.1 Magnesium 2.0 Total Bilirubin 0.60 Direct Bilirubin 0.28 AST 106 H ALT 68 H Alkaline Phosphatase 464 H Troponin I High Sens < 3 L B-Natriuretic Peptide 127.9 H Total Protein 6.9 Albumin 1.9 L Globulin 5.0 H 12/26/21 22:50 WBC RBC Hgb Hct MCV MCH MCHC RDW Std Deviation RDW Coeff of Walter Plt Count MPV Immature Gran % (Auto) Neut % (Auto) Lymph % (Auto) Glasscock % (Auto) Eos % (Auto) Baso % (Auto) Absolute Neuts (auto) Absolute Lymphs (auto) Nucleated RBC % Differential Comment PT 15.0 H INR 1.2 APTT 28.3 Sodium Potassium Chloride Carbon Dioxide Anion Gap BUN Creatinine Estim Creat Clear Calc Est GFR (MDRD) Af Amer Est GFR (MDRD) Non-Af BUN/Creatinine Ratio Glucose Calcium Magnesium Total Bilirubin Direct Bilirubin AST ALT Alkaline Phosphatase Troponin I High Sens B-Natriuretic Peptide Total Protein Albumin Globulin Radiography Diagnostic Testing: Clinical Impression(s) from Imaging Studies Chest/Abdomen/Pelvis CTA 12/26/21 22:30 IMPRESSION: 1. No pulmonary embolism or dissection. 2. Large left pleural effusion. 3. Atelectasis left lower lobe. 4. Innumerable pulmonary nodules. 5. Hepatic metastases increased since previous exam. 6. Peritoneal carcinomatosis with large amount of ascites similar to the prior exam. Electronically Signed: Ko Desai MD at 23:44 EDT , Discharge Plan Triage Chief Complaint: Shortness of Breath ED Provider: Lukasz Roblero Dx/Rx/DC Orders Clinical Impression: Ascites, Pleural effusion on left, Metastatic cancer Instructions: Pleural Effusion, ED Ascites Prescriptions: No Action ascorbic acid (vitamin C) 500 mg capsule 500 mg PO DAILY multivitamin Tablet 1 tab PO DAILY omega-3 acid ethyl esters 1 gram capsule 1 cap PO DAILY ondansetron 4 mg tablet,disintegrating 4 mg PO Q8H PRN (Reason: nausea and vomiting) Qty: 30 0RF aspirin 81 mg tablet,delayed release (DR/EC) 81 mg PO BID levothyroxine 50 mcg tablet 50 mcg PO DAILY spironolactone [Aldactone] 50 mg tablet 50 mg PO BID Qty: 60 0RF prednisone 20 mg tablet 40 mg PO DAILY Qty: 20 0RF cyclobenzaprine 5 mg tablet 5 mg PO TID PRN (Reason: muscle spasm) Qty: 60 3RF Stivarga 40 mg tablet 160 mg PO DAILY Primary Care Provider: Breana Arroyo Referrals: Breana Arroyo [Primary Care Provider] - Activity Restrictions/Additional Instructions: Please talk to your physician about having your abdomen drained because your CT scan shows a large volume of fluid/ascites present. Also discussed possible referral to pulmonology based on the pleural effusion found in your lung today as this may need drained as well. Please return to the ER should you have any further concerns Disposition Disposition: Home, Self Care Discharge Date/Time: 12/27/21 00:57
[2021-12-26 23:04] LABS: Absolute Lymphocyte Count 0.67 X10^3/uL (0.83-4.51); Absolute Neutrophil Count 12.9 X10^3/uL (2.0-7.7); Basophil# 0.07 X10^3/uL; Basophil% 0.5 % (0-1); Eosinophils% 0.7 % (0-5); Hemoglobin 9.9 g/dL (13.0-16.5); Lymphocyte # 0.67 X10^3/ul (0.83-4.51); Lymphocyte % 4.5 % (19-41); Mean Corpuscular Hgb 22.3 pg (27.0-32.0); Mean Corpuscular Volume 74.5 fL (80-94); Mean Platelet Vol. 8.9 fl (6.2-12.0); Monocyte# 0.99 X10^3/uL; Monocyte% 6.6 % (0-10); NRBC Flagged by Analyzer 0 % (0-5); Neutrophil # 12.85 X10^3/uL (2.7-7.7); Neutrophil % 86.3 % (47-70); POSITIVE MORPHOLOGY YES; Platelet Count 656 K/mm3 (150-450); RBC Distribution Width CV 21.6 % (11.6-14.6); RBC Distribution Width SD 54.4 fl (35.1-43.9); Red Blood Count 4.43 M/mm3 (4.6-6.2); White Blood Count 14.9 K/mm3 (4.4-11.0)
[2021-12-26 23:06] LABS: BNP,B-Type NATRIURETIC PEPTIDE 127.9 pg/mL (0-100)
[2021-12-26 23:07] LABS: Differential Indicated SCAN CRITERIA MET
[2021-12-26 23:08] LABS: International Normalized Ratio 1.2; Partial Thromboplast Time 28.3 Seconds (24.1-36.2)
[2021-12-26 23:10] LABS: AST(SGOT) 106 U/L (15-37); Alanine Aminotransfer ALT/SGPT 68 U/L (16-61); Albumin, Serum 1.9 g/dL (3.2-5.0); Alkaline Phosphatase 464 U/L (45-117); Anion Gap 13 (5-15); BUN 19 mg/dL (7-18); BUN/Creat Ratio 20.2 RATIO (10-20); Bilirubin, Direct 0.28 mg/dL (0.00-0.30); Calcium,Total 9.1 mg/dL (8.5-10.1); Chloride 96 mmol/L (98-107); Creatinine, Serum 0.94 mg/dL (0.70-1.30); EST Glomerular Filtration Rate 94 mL/min (>60); Est Glom Filt Rate - Afr Amer 114 mL/min (>60); Estimated Creatinine Clearance 114.66 ml/min; Glucose 125 mg/dL (74-106); Potassium 4.6 mmol/L (3.5-5.1); Protein, Total 6.9 g/dL (6.4-8.2); Sodium Level 130 mmol/L (136-145); Troponin-I HS < 3 pg/mL (3.0-78.0)
[2021-12-26 23:26] LABS: Differential Comment SCANNED
[2021-12-27 00:11] VITALS: BP 119/85; PULSE 110; RESP 25; O2SAT 96
[2021-12-27 00:57] VITALS: BP 119/82; PULSE 108; RESP 18; O2SAT 98
== END 2021-12-27 00:57 | disposition home or self-care (01) ==
PROVIDERS: Emergency Provider Emergency Medicine; Visit Provider Emergency Medicine
DX: R18.8 Other ascites (principal); C78.7 Secondary malignant neoplasm of liver and intrahepatic bile duct; C78.6 Secondary malignant neoplasm of retroperitoneum and peritoneum; J81.1 Chronic pulmonary edema; Z80.0 Family history of malignant neoplasm of digestive organs; R06.02 Shortness of breath
CPT/HCPCS: 71275; 74174; 80048; 80076; 83735; 83880; 84484; 85025; 85610; 85730; 87811; 93005; 99282; J7030; Q9967; A4216

== ENCOUNTER → 2021-12-28 | Outpatient (CLI) | payer MEDICAID, SELFPAY ==
--- NOTE | 2021-12-28 | FLU_PTH ---
PATIENT: JESENIA LARSEN LOC: [facility]#:[id number] AGE/SX: 41/M ROOM: RE12/28/[address]: POPPY Chris : 1980 BED: DIS: 12/28/2021 SPEC #: [id number] RECD: 12/28/21 15:22 STATUS: NAM MOSHE #: [id number] SUSIE: 12/28/21 00:[address]: Miroslava Landon NP DEPT: CYTOLOGY RECD BY: Nilo Rodriguez ENTERED: 12/31/21 12:26 SP TYPE: Fluid OTHR DR: Breana Arroyo Tissues: THORACIC FLUID Procedures: Special Stain Group II Surgery Specimen Level IV Cytospin Fluid HEADER OPERATION: Thoracentesis left chest PRE-OP DIAGNOSIS: Pleural effusion TISSUE SUBMITTED: Thoracentesis fluid for cytology DIAGNOSIS CYTOLOGY Thoracentesis fluid for cytology (cytospin and cell block): Negative for malignant cells. AM:lori 01/01/2022 CYTOLOGY STUDY Slides are reviewed. CYTOLOGY GROSS Received is 90 ml of red cloudy fluid labeled with the patient's name and and designated per the requisition as thoracentesis. Submitted for cytology preparation including cell block. / lori 12/31/2021 TC:5 CPT: 93329, 19261
--- NOTE | 2021-12-28 14:20 | US_ITS ---
PROCEDURE: ULTRASOUND GUIDED THORACENTESIS. DATE: 12/28/2021. INDICATION: Male, 41 years old. Left pleural effusion. PHYSICIAN: Lm Robb M.D. PROCEDURE: The risks, benefits, and alternatives to the procedure were explained to the patient. The specific risks of bleeding, infection, and pneumothorax requiring chest tube insertion were discussed and accepted. Written informed consent was obtained. Ultrasonographic evaluation of the left lower pleural space was carried out. An adequate pocket was identified. The patient was placed in the sitting, upright position. The overlying skin was prepped and draped in sterile fashion. 1% lidocaine was administered subcutaneously for local anesthesia. Under ultrasound guidance, a 5 Senegalese thoracentesis needle/catheter system was advanced into the left posterior lower pleural fluid collection. Approximately 1350 mL of blood tinged tarik-colored fluid was drained. The catheter was removed, and a sterile dressing was applied. A specimen was collected and sent to the laboratory for analysis, as requested by the referring clinician. The patient tolerated the procedure well. A chest x-ray was ordered. US/Thoracentesis W US IMPRESSION: Ultrasound-guided left thoracentesis. Electronically Signed: Lm Robb MD at 15:34 EDT ,
[2021-12-28 15:00] VITALS: BP 125/87; BP 130/93; BP 135/94; BP 136/91; BP 138/87; PULSE 112; PULSE 113; PULSE 119; PULSE 120; PULSE 981; RESP 18; RESP 20; RESP 22; TEMP 36; O2SAT 96; O2SAT 97; O2SAT 98
[2021-12-28] MEDS: Lidocaine 2% (10 ml mdv) 10 ML Vial INFILT (15:00)
--- NOTE | 2021-12-28 15:14 | RAD_ITS ---
STUDY: X-RAY CHEST REASON FOR EXAM: Male, 41 years old. Post thoracentesis TECHNIQUE: AP inspiration and expiration views. COMPARISON: Comparison is made with prior examination dated 11/22/2021. FINDINGS: The patient is status post left thoracentesis. No evidence of pneumothorax. Once again, there are multiple bilateral pulmonary nodules. RAD/Chest Insp/Exp 2 View IMPRESSION: Status post left thoracentesis. No evidence of pneumothorax. Multiple bilateral pulmonary nodules. Electronically Signed: Lm Robb MD at 15:27 EDT ,
[2021-12-28 15:27] LABS: Cytology, Body Fluid / CSF SEE PATHOLOGY REPORT
== END | disposition home or self-care (01) ==
LOC: US 14:18
PROVIDERS: Referring Provider Nurse Practitioner Family; Visit Provider Nurse Practitioner Family
DX: J90 Pleural effusion, not elsewhere classified (principal)
CPT/HCPCS: 32555; 71046; 88108; 88305; 88313

== ENCOUNTER → 2022-01-02 | Outpatient (CLI) | payer MEDICAID, SELFPAY ==
--- NOTE | 2022-01-02 12:42 | US_ITS ---
PROCEDURE: Ultrasound guided paracentesis. DATE OF EXAMINATION: 01/02/2022. INDICATION: Male, 41 years old. Ascites. PHYSICIAN: Lm Robb M.D. TECHNIQUE: The risks, benefits, and alternatives to the procedure were explained to the patient. The specific risks of bleeding, infection, and damage to bowel were detailed and accepted. Witnessed informed consent was obtained. The abdomen was ultrasonographically surveyed. An appropriate pocket of fluid was identified at the right lower quadrant. The skin were cleaned and prepped in the usual sterile fashion. Using ultrasound guidance, the peritoneal cavity was accessed with a 5-Swiss paracentesis needle/catheter system. The trocar was removed. A total of 1500 ml of tarik-colored fluid were removed from the peritoneal cavity. The catheter was removed and a sterile dressing was applied. The procedure was well tolerated. US/Paracentesis with US IMPRESSION: Ultrasound guided paracentesis. Electronically Signed: Lm Robb MD at 14:05 EDT ,
[2022-01-02 13:05] VITALS: BP 110/78; BP 117/81; BP 125/87; PULSE 110; PULSE 112; PULSE 113; RESP 18; TEMP 36.6; O2SAT 97; O2SAT 98
[2022-01-02] MEDS: Lidocaine 2% (10 ml mdv) 10 ML Vial INFILT (13:10)
== END | disposition home or self-care (01) ==
PROVIDERS: Referring Provider Internal Medicine Medical Oncology; Visit Provider Internal Medicine Medical Oncology
DX: R18.8 Other ascites (principal); C19 Malignant neoplasm of rectosigmoid junction
CPT/HCPCS: 49083; 36415; 80053; 82378; 85025

== ENCOUNTER → 2022-01-16 | Outpatient (CLI) | payer MEDICAID, SELFPAY ==
--- NOTE | 2022-01-16 11:52 | US_ITS ---
STUDY: ABDOMINAL ULTRASOUND - 4 quadrants. REASON FOR VISIT: Male, 41 years old ASCITES TECHNIQUE: Ultrasound evaluation of the 4 quadrants was performed with real-time and static landon-scale imaging. TECHNICAL QUALITY: Adequate. COMPARISON: None. FINDINGS: Not enough fluid for safe paracentesis. US/Abdomen Limited IMPRESSION: Not enough fluid for a safe paracentesis. Electronically Signed: Lm Robb MD at 11:04 EDT ,
== END | disposition home or self-care (01) ==
LOC: US 11:51
PROVIDERS: Referring Provider Internal Medicine Medical Oncology; Visit Provider Internal Medicine Medical Oncology
DX: R18.8 Other ascites (principal)
CPT/HCPCS: 76705

== ENCOUNTER → 2022-01-23 | Outpatient (CLI) | payer MEDICAID, SELFPAY ==
--- NOTE | 2022-01-23 12:57 | US_ITS ---
PROCEDURE: Ultrasound guided paracentesis. DATE OF EXAMINATION: 01/23/2022. INDICATION: Male, 41 years old. Ascites. PHYSICIAN: Lm Robb M.D. TECHNIQUE: The risks, benefits, and alternatives to the procedure were explained to the patient. The specific risks of bleeding, infection, and damage to bowel were detailed and accepted. Witnessed informed consent was obtained. The abdomen was ultrasonographically surveyed. An appropriate pocket of fluid was identified at the right lower quadrant. The skin were cleaned and prepped in the usual sterile fashion. Using ultrasound guidance, the peritoneal cavity was accessed with a 5-[place]alan paracentesis needle/catheter system. The trocar was removed. A total of 1050 ml of tarik-colored fluid were removed from the peritoneal cavity. The catheter was removed and a sterile dressing was applied. The procedure was well tolerated. US/Paracentesis with US IMPRESSION: Ultrasound guided paracentesis. Electronically Signed: Lm Robb MD at 13:53 EDT ,
[2022-01-23 13:08] VITALS: BP 100/64; BP 100/70; BP 105/69; BP 105/73; BP 106/69; BP 111/73; BP 92/66; BP 97/69; PULSE 77; PULSE 91; PULSE 95; PULSE 97; PULSE 99; RESP 18; RESP 20; RESP 22; RESP 24; TEMP 36.1; O2SAT 100; O2SAT 99
[2022-01-23] MEDS: Lidocaine 2% (10 ml mdv) 10 ML Vial INFILT (13:12)
[2022-01-23] MEDS: Ondansetron ODT 4 MG Tablet PO (13:35)
--- NOTE | 2022-01-23 14:48 | NURSING ---
At approximately 1345 JANAY Roper tells pt that he is stable from a nursing perspective and free to go whenever he feels comfortable, but that if he would like to stay in the nursing bay for awhile before heading back home he is able to. Pt states I'd like to stay here, like overnight, if I can. Snehal then mentions that pt was extremely uncomfortable for transport and he was not looking forward to having to go all the way home and come back for the procedure. JANAY Roper states I will look into this and see what I can do. Upon looking up patient's visit, tomorrow's visit appears to be a consultation. JANAY Roper calls [facility], explains the above situation to a nurse at the office, to see if Dr. Hickman can simply see patient today instead of tomorrow since patient is here. Nurse at [facility] states Dr. Dela Cruz can see pt if he is willing to see Dr. Dela Cruz. Pt was willing to see Dr. Dela Cruz and was assisted to the office on the squad stretcher.
== END | disposition home or self-care (01) ==
LOC: US 12:55
PROVIDERS: Referring Provider Internal Medicine Medical Oncology; Visit Provider Internal Medicine Medical Oncology
DX: R18.8 Other ascites (principal)
CPT/HCPCS: 49083